=== PATIENT | male | born 1975 | race Caucasian/White ===

== ENCOUNTER 2020-10-03 16:19 | Emergency (ER) | payer MEDICARE, MEDICAID ==
[~2020-10-03 16:19] MED LIST: DEPA1TAB3 PO; INVE156I IM; INVE3TAB2 PO; TRAZ-252 PO
[2020-10-03] MEDS ORDERED: VITA200016 (16:48)
[2020-10-03] MEDS ORDERED: METO1TAB32 (16:48)
[2020-10-03] MEDS ORDERED: ATOR40TA75 (16:48)
[2020-10-03] MEDS ORDERED: FLUP10TA11 (16:48)
[2020-10-03 17:13] LABS: HEMATOCRIT 44.2 % (42.0-52.0); HEMOGLOBIN 14.8 g/dl (13.5-17.5); MEAN CORPUSCULAR HEMOGLOBIN 31.3 pg (27.0-33.0); MEAN CORPUSCULAR HGB CONC 33.5 g/dl (32.0-36.5); MEAN CORPUSCULAR VOLUME 93.4 fl (80.0-96.0); PLATELET COUNT, AUTOMATED 332 10^3/uL (150-450); RED BLOOD COUNT 4.73 10^6/uL (4.30-6.10); WHITE BLOOD COUNT 9.1 10^3/uL (4.0-10.0)
[2020-10-03 17:49] LABS: ACETAMINOPHEN LEVEL < 2.0 UG/ML (10.0-30.0); ALBUMIN 3.6 GM/DL (3.2-5.2); ALT/SGPT 81 U/L (12-78); BILIRUBIN,DIRECT 0.1 MG/DL (0.0-0.2); BILIRUBIN,TOTAL 0.2 MG/DL (0.2-1.0); BLOOD UREA NITROGEN 4 MG/DL (7-18); CALCIUM LEVEL 9.5 MG/DL (8.5-10.1); CARBON DIOXIDE LEVEL 27 MEQ/L (21-32); CHLORIDE LEVEL 103 MEQ/L (98-107); CREATININE FOR GFR 0.72 MG/DL (0.70-1.30); ETHYL ALCOHOL (ETHANOL) < 0.003 % (0.000-0.010); GLOMERULAR FILTRATION RATE > 60.0 (>60); GLUCOSE, FASTING 86 MG/DL (70-100); POTASSIUM SERUM 4.4 MEQ/L (3.5-5.1); SALICYLATE LEVEL 4.1 MG/DL (5.0-30.0); SODIUM LEVEL 139 MEQ/L (136-145); THYROID STIMULATING HORMONE 0.987 uIU/ML (0.358-3.740); VALPROIC ACID (DEPAKOTE) 44.1 UG/ML (50.0-100.0)
[2020-10-03 17:51] LABS: AMPHETAMINES LEVEL URINE NEGATIVE (NEGATIVE); BARBITURATES URINE NEGATIVE (NEGATIVE); BENZODIAZEPINES URINE NEGATIVE (NEGATIVE); CANNABINOIDS URINE NEGATIVE (NEGATIVE); COCAINE METABOLITE URINE NEGATIVE (NEGATIVE); METHADONE URINE NEGATIVE (NEGATIVE); OPIATES URINE NEGATIVE (NEGATIVE); PHENCYCLIDINE URINE NEGATIVE (NEGATIVE)
[2020-10-03 20:47] VITALS: BP 136/78
== END 2020-10-03 20:50 | disposition home or self-care (01) ==
LOC: M ED 16:19
DX: F31.9 Bipolar disorder, unspecified (principal); I10 Essential (primary) hypertension; F20.9 Schizophrenia, unspecified; Z79.899 Other long term (current) drug therapy; Z88.0 Allergy status to penicillin
CPT/HCPCS: 36415; 80048; 80076; 80164; 80307; 84443; 85027; 99284; G0480

== ENCOUNTER 2021-02-28 01:13 | Emergency (ER) | payer MEDICARE, MEDICAID ==
[~2021-02-28] VITALS: Ht 175.3 cm; Wt 95.5 kg
[~2021-02-28 01:13] MED LIST changes: +ATOR40TA75; +FLUP10TA11; +METO1TAB32; +VITA200016
[2021-02-28] MEDS ORDERED: ALBU8.5H (05:53)
[2021-02-28 06:19] VITALS: BP 148/52
--- NOTE | 2021-02-28 08:01 | ECGEPIP ---
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
== END 2021-02-28 06:20 | disposition home or self-care (01) ==
LOC: M ED 01:13
DX: R07.89 Other chest pain (principal); R51.9 Headache, unspecified; G47.00 Insomnia, unspecified; F31.9 Bipolar disorder, unspecified; F20.9 Schizophrenia, unspecified; Z79.899 Other long term (current) drug therapy; Z88.0 Allergy status to penicillin; F17.210 Nicotine dependence, cigarettes, uncomplicated

== ENCOUNTER 2021-03-02 18:07 | Emergency (ER) | payer MEDICARE, MEDICAID ==
[~2021-03-02 18:07] MED LIST changes: +ALBU8.5H
[2021-03-02 19:45] VITALS: BP 123/73
== END 2021-03-02 19:56 | disposition left against medical advice (07) ==
LOC: EDBD 18:07 → EDSEX 18:07 → M ED 18:07
DX: Z53.21 Procedure and treatment not carried out due to patient leaving prior to being seen by health care provider (principal)

== ENCOUNTER 2021-03-05 22:54 | Emergency (ER) | payer MEDICARE, MEDICAID ==
[~2021-03-05] VITALS: Ht 175.3 cm; Wt 87.7 kg
[2021-03-05 22:55] VITALS: BP 128/90
[2021-03-06] MEDS ORDERED: FLUP10TA11 PO (22:11)
== END 2021-03-05 23:36 | disposition left against medical advice (07) ==
LOC: M ED 22:54
DX: Z53.21 Procedure and treatment not carried out due to patient leaving prior to being seen by health care provider (principal)

== ENCOUNTER 2021-03-06 15:10 | Emergency (ER) | payer MEDICARE, MEDICAID ==
[~2021-03-06] VITALS: Ht 175.3 cm; Wt 88.1 kg
[2021-03-06 15:10] VITALS: BP 124/76
[2021-03-06] MEDS ORDERED: FLUP10TA11 PO (22:11)
[2021-03-07] MEDS ORDERED: INVE156I SQ (14:15)
== END 2021-03-06 15:43 | disposition left against medical advice (07) ==
LOC: M ED 15:10
DX: Z53.21 Procedure and treatment not carried out due to patient leaving prior to being seen by health care provider (principal)

== ENCOUNTER 2021-03-06 22:04 | Emergency (ER) | payer MEDICARE, MEDICAID ==
[~2021-03-06] VITALS: Ht 175.3 cm; Wt 88.4 kg
[2021-03-06 22:04] VITALS: BP 153/86
[2021-03-06] MEDS ORDERED: FLUP10TA11 PO (22:11)
[2021-03-07] MEDS ORDERED: INVE156I SQ (14:15)
== END 2021-03-06 22:25 | disposition left against medical advice (07) ==
LOC: M ED 22:04
DX: Z53.21 Procedure and treatment not carried out due to patient leaving prior to being seen by health care provider (principal)

== ENCOUNTER 2021-03-07 06:39 | Emergency (ER) | payer MEDICARE, MEDICAID ==
[~2021-03-07] VITALS: Ht 175.3 cm; Wt 87.7 kg
[~2021-03-07 06:39] MED LIST changes: +FLUP10TA11 PO
[2021-03-07 06:40] VITALS: BP 169/111
[2021-03-07] MEDS ORDERED: INVE156I SQ (14:15)
== END 2021-03-07 07:42 | disposition home or self-care (01) ==
LOC: M ED 06:39
DX: S90.822A Blister (nonthermal), left foot, initial encounter (principal); X58.XXXA Exposure to other specified factors, initial encounter; Y92.9 Unspecified place or not applicable; Y93.01 Activity, walking, marching and hiking; Y99.9 Unspecified external cause status; I25.2 Old myocardial infarction; I10 Essential (primary) hypertension; E78.5 Hyperlipidemia, unspecified; Z85.05 Personal history of malignant neoplasm of liver; F17.200 Nicotine dependence, unspecified, uncomplicated; Z79.899 Other long term (current) drug therapy; Z88.0 Allergy status to penicillin; Z88.6 Allergy status to analgesic agent; Z91.013 Allergy to seafood

== ENCOUNTER 2021-03-07 14:08 | Emergency (ER) | payer MEDICARE, MEDICAID ==
[~2021-03-07] VITALS: Ht 175.3 cm; Wt 87.9 kg
[2021-03-07] MEDS ORDERED: INVE156I SQ (14:15)
[2021-03-07 15:33] VITALS: BP 132/82
== END 2021-03-07 15:34 | disposition home or self-care (01) ==
LOC: M ED 14:08
DX: S90.821A Blister (nonthermal), right foot, initial encounter (principal); S90.822A Blister (nonthermal), left foot, initial encounter; X58.XXXA Exposure to other specified factors, initial encounter; Y92.89 Other specified places as the place of occurrence of the external cause; I10 Essential (primary) hypertension; J45.909 Unspecified asthma, uncomplicated; E78.5 Hyperlipidemia, unspecified; F31.9 Bipolar disorder, unspecified; F90.9 Attention-deficit hyperactivity disorder, unspecified type; R56.9 Unspecified convulsions; Z88.0 Allergy status to penicillin; Z88.8 Allergy status to other drugs, medicaments and biological substances; Z91.018 Allergy to other foods; F17.210 Nicotine dependence, cigarettes, uncomplicated

== ENCOUNTER 2021-03-08 06:08 | Emergency (ER) | payer MEDICARE, MEDICAID ==
[~2021-03-08] VITALS: Ht 175.3 cm; Wt 88.3 kg
[~2021-03-08 06:08] MED LIST changes: +INVE156I SQ
[2021-03-08 06:09] VITALS: BP 168/92
[2021-04-28] MEDS ORDERED: CLON0.5T2 PO (11:18)
== END 2021-03-08 06:32 | disposition left against medical advice (07) ==
LOC: M ED 06:08
DX: Z53.29 Procedure and treatment not carried out because of patient's decision for other reasons (principal)

== ENCOUNTER 2021-03-08 11:10 | Inpatient (IN) | payer MEDICARE, MEDICAID ==
[~2021-03-08] VITALS: Ht 175.3 cm; Wt 87.7 kg
[2021-03-08 12:52] LABS: HEMATOCRIT 42.1 % (42.0-52.0); HEMOGLOBIN 13.8 g/dl (13.5-17.5); MEAN CORPUSCULAR HEMOGLOBIN 30.7 pg (27.0-33.0); MEAN CORPUSCULAR HGB CONC 32.8 g/dl (32.0-36.5); MEAN CORPUSCULAR VOLUME 93.6 fl (80.0-96.0); PLATELET COUNT, AUTOMATED 210 10^3/uL (150-450); WHITE BLOOD COUNT 11.1 10^3/uL (4.0-10.0)
[2021-03-08 13:25] LABS: ACETAMINOPHEN LEVEL < 2.0 UG/ML (10.0-30.0); ALBUMIN 3.4 GM/DL (3.2-5.2); ALT/SGPT 41 U/L (12-78); BILIRUBIN,DIRECT 0.2 MG/DL (0.0-0.2); BILIRUBIN,TOTAL 0.7 MG/DL (0.2-1.0); BLOOD UREA NITROGEN 6 MG/DL (7-18); CALCIUM LEVEL 8.9 MG/DL (8.5-10.1); CARBON DIOXIDE LEVEL 23 MEQ/L (21-32); CHLORIDE LEVEL 107 MEQ/L (98-107); CREATININE FOR GFR 0.85 MG/DL (0.70-1.30); ETHYL ALCOHOL (ETHANOL) < 0.003 % (0.000-0.010); GLOMERULAR FILTRATION RATE > 60.0 (>60); GLUCOSE, FASTING 109 MG/DL (70-100); POTASSIUM SERUM 3.8 MEQ/L (3.5-5.1); SALICYLATE LEVEL 3.8 MG/DL (5.0-30.0); SODIUM LEVEL 141 MEQ/L (136-145); THYROID STIMULATING HORMONE 0.452 uIU/ML (0.358-3.740); TOTAL PROTEIN 6.6 GM/DL (6.4-8.2)
[2021-03-08 13:33] LABS: AMPHETAMINES LEVEL URINE NEGATIVE (NEGATIVE); BARBITURATES URINE NEGATIVE (NEGATIVE); BENZODIAZEPINES URINE NEGATIVE (NEGATIVE); CANNABINOIDS URINE NEGATIVE (NEGATIVE); COCAINE METABOLITE URINE NEGATIVE (NEGATIVE); METHADONE URINE NEGATIVE (NEGATIVE); OPIATES URINE NEGATIVE (NEGATIVE); PHENCYCLIDINE URINE NEGATIVE (NEGATIVE)
[2021-03-08] MEDS ORDERED: MOM 30ML SUSPENSION UDC PO PRN (23:10)
[2021-03-09 00:02] VITALS: BP 135/70
[2021-03-09] MEDS: DIVALPROEX 500 MG TAB PO SCH ×2 (09:00→09:49)
[2021-03-09] MEDS: fluPHENAZine 5MG TABLET PO SCH (09:49)
[2021-03-09] MEDS: NICOTINE 21MG/24HR 1 EA TRANSDERMAL TD SCH (09:50)
--- NOTE | 2021-03-09 12:47 | MHHPEPDOC ---
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 History of Present Illness HISTORY OF THE PRESENT ILLNESS: Patient is a 45 -year-old , male, who [long psychiatric history with the one previous admission at [facility] 6 years ago.. He was brought to emergency room after he showed a somewhat delusional and bizarre behavior at a local bank. Patient went to the bank demand to withdrawal some money, but at the same time was talking about being a confidential informant for Police Department. 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 The [employer] contacted police and his AOT case management manager came to pick him up and brought to emergency. Patient denies any suicidal or homicidal thoughts and claims that he has been complying with the mistreatment and doesn't really understand why he is hospitalized. He is denying any command hallucination. Denies any paranoid ideas but quite insistent that he works at Police Department and he has done nothing wrong. He appears somewhat disheveled, preoccupied, but in control and denies any lethality issues and denies any drug or alcohol abuse issues.. Psychiatric Review of Systems Depression (2 or more weeks): denies Tatyana (4 or more days of): expansive mood, grandiosity, talkativity, pressured, flight of ideas Psychosis: auditory hallucination, delusions, paranoia Past Psychiatric History Previous Psychiatric Diagnosis: . Long psychiatric history several inpatient treatment to his diagnosis of schizophrenia and schizoaffective disorder Previous Psychiatric Admissions: . Last admission at [facility] was 6 years ago but also has numerous admissions in area Hospital Suicide Attempts: . Denies any suicidal attempt. History Psychiatric Follow-up: . Is linked with the AOT Psychiatric medications: .. He doesn't remember the medicine, but he has been taking Past Medical History Medical Problems Hypertension Head Injury: No Seizures: No Hospitalizations: No Surgeries: No Family Medical/Psychiatric HX Medical Problems Father of cancer. No other medical history Psychiatric Disorders: No (patient denies any family psychiatric history) Addiction: No Suicide Attemps/Completions: No Addiction History denies Social History Childhood: . Born in [place], but came to [place] in early age, raised by his grandmother Abuse/Trauma:. Denies any history of abuse Current Living Situation: [. He lives in supportive apartment]. Education: . High school education Employment: . On SSI Social Support: . Has 2 children but no contact Legal: . Denies any legal history Marital: ., , once , recently has 2 children, one son and one daughter very limited contact Mental Status Examination General Appearance: disheveled, appears stated age Build: average Demeanor: average Eye Contact: average Activity: average Speech: clear, slow, low in volume Mood: anxious, irritable Mood Denies any serious depression Affect: constricted, appropriate, congruent, anxious Thought Process: circumstantial, concrete, derailment Thought Content (Delusions): none reported, bizarre, denies SI, HI, AVH, delusions Thought Content (Other): none reported, preoccupied Thought Content (Aggressive): none reported Perception (Hallucinations): none reported, other (possibly hallucinating but denies any command hallucinations) Perception (Other): none reported Cognition (Impairment of): none reported Cognition(Intelligence Est.): average Oriented: Awake, Alert, Oriented times three Insight: fair Psychosis: Denies Diagnoses Chronic schizophrenia, undifferentiated. Rule out schizoaffective disorder A-FIB/CHADSVASC A-FIB History Current/History of A-Fib/PAF?: No Current PO Anticoag Therapy: No Age/Risk Factor Scoring CHADSVASC: CHADSVASC Response (Comments) Value Gender Risk Factor Male 0 Hx of CHF No 0 Hx of HTN No 0 Hx of Stroke/TIA/or VTE No 0 Hx of Diabetes No 0 Hx of Vascular Disease No 0 Total 0 Treatment Treatment ordered: NONE Assessment Patient is somewhat preoccupied and chronically delusional, but denies any command hallucination and denies any lethality issues and is willing to cooperate with the treatment and needs stabilization related medication and supportive therapy Initial Treatment Plan 1. Patient was admitted on a [9.39] status. 2. Complete history was obtained. 3. With patients permission, family will be contacted and database will be expanded. 4. Patients medication regimen will be reviewed and changed accordingly. 5. Patient will be provided with protected environment. 6. Patient will be treated with individual, group, and milieu therapies. 7. Patient will receive supportive psych-education. 8. Discharge planning will commence immediately. 9. Outpatient follow-up treatment will be strongly recommended. 10. The initial treatment plan will focus initially on: * Depression. * Risk for suicide. ESTIMATED LENGTH OF STAY: [5]-[7] DAYS. TIME SPENT COUNSELING AND COORDINATING INITIAL CARE: minutes. Tobacco Cessation Screen If Patient is a Smoker Yes Tobacco Cessation Tx Ordered?: Yes Complete/Results docum. Vital Signs Vital Signs Date Time Temp Pulse Resp B/P (MAP) Pulse Ox O2 Delivery O2 Flow Rate FiO2 03/09/21 00:02 98.7 100 18 135/70 (91) 96 Room Air Medications Unable to Obtain Active Prescriptions or Reported Meds Allergies Coded Allergies: Penicillins (Verified Allergy, Severe, hives, SOB, 10/03/20) ibuprofen (Verified Allergy, Unknown, hives, 03/02/21) shellfish derived (Verified Allergy, Unknown, hives, 03/02/21) NANCY CANDELARIA M.D. Mar 09, 2021 12:47
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
[2021-03-09 17:45] VITALS: BP 133/83
[2021-03-09] MEDS: traZODone 50 MG TAB PO PRN (20:01)
[2021-03-09] MEDS: ALBUTEROL 90 MCG/ACT 8GM HFA INHALER INH PRN (20:01)
[2021-03-09] MEDS: OLANZapine ORAL DISINTEGRATING TAB 5MG PO PRN (23:30)
[2021-03-10 06:34] VITALS: BP 137/79
[2021-03-10] MEDS: NICOTINE 21MG/24HR 1 EA TRANSDERMAL TD SCH (08:50)
[2021-03-10] MEDS: fluPHENAZine 5MG TABLET PO SCH ×2 (08:50→20:21)
[2021-03-10] MEDS: DIVALPROEX 500 MG TAB PO SCH ×2 (08:51→14:27)
--- NOTE | 2021-03-10 12:02 | MHIPNPDOC ---
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 He is obviously delusional but apparently quite chronic in nature and he is denying any thoughts of acting out on his delusions. He is somewhat disheveled, pressured and restless and making nonsensical remarks but not hostile or aggressive, and denies any suicidal or homicidal thoughts. He has been in treatment with the AOT and residing in a supportive living. He is claiming that he has been compliant with his medications, but there is some question about his compliance. He appears quite disorganized and is clearly in need of stabilization HISTORY: . VITAL SIGNS: See below. NEW TEST RESULTS: . CURRENT MEDICATIONS: See below. MENTAL STATUS EXAMINATION: Patient is a 45-year old male, who is , somewhat pressured and rambling. Speech: Is , relevant, but fragmented. Language skills are fair. Thought processes including: Rambling and loose. Thought content: Delusional thoughts. Abstract reasoning, and computation: , Poor. Description of associations: flighty]. Description of abnormal or psychotic thoughts: Delusional thinking, but denies any command hallucination . Judgment: poor. Insight: poor. Orientation: Appears oriented. Recent and remote memory: No gross impairment. Attention span and concentration: . Language: . Fund of knowledge: . Mood: Slightly elevated. Affect: Inappropriate and labile. DIAGNOSES: 1. . Chronic schizophrenia 2. ., Rule out schizoaffective disorder 3. . ASSESSMENT:Cooperating with the medicine but quite regressed and disorganized MANAGEMENT PLAN: Ms. stabilization with this medicine and supportive therapy. TIME SPENT: 20 minutes. Vital Signs Vital Signs Date Time Temp Pulse Resp B/P (MAP) Pulse Ox O2 Delivery O2 Flow Rate FiO2 03/10/21 06:34 97.6 89 14 137/79 (98) 95 Room Air Laboratory Data 24H Labs Laboratory Tests 2 03/10/21 06:42: Valproic Acid (Depakene) Level 24.5L Current Medications Current Medications Medications (Trade) Dose Ordered Sig/Asim Route PRN Reason Start Time Stop Time Status Last Admin Dose Admin Acetaminophen (Tylenol Tab) 650 mg Q6HP PRN PO HEADACHE or MILD DISCOMFORT 03/08/21 23:10 Al Hydrox/Mg Hydrox/Simethicone (Mylanta) 30 ml Q4HP PRN PO HEARTBURN/INDIGESTION 03/08/21 23:10 Albuterol Sulfate (Proventil, Ventolin Hfa) 2 puff Q6HP PRN INH SHORTNESS OF BREATH 03/09/21 16:50 03/09/21 20:01 Divalproex Sodium (Depakote) 500 mg DAILY PO 03/09/21 09:00 Fluphenazine HCl (Prolixin) 10 mg QAM PO 03/09/21 09:00 03/10/21 08:50 Home Med (Med Rec Complete!) ASDIRECTED XX 03/08/21 15:25 03/08/21 23:12 DC Magnesium Hydroxide (Milk Of Magnesia) 30 ml DAILYPRN PRN PO CONSTIPATION 03/08/21 23:10 Nicotine (Nicoderm Cq 21mg) 1 patch DAILY TD 03/09/21 09:00 03/10/21 08:50 Olanzapine (ZyPREXA ZYDIS) 5 mg Q4HP PRN PO AGITATION/ANXIETY 03/08/21 23:10 03/09/21 23:30 Trazodone HCl (Desyrel) 50 mg QHSP PRN PO INSOMNIA 03/08/21 23:10 03/09/21 20:01 Allergies Coded Allergies: Penicillins (Verified Allergy, Severe, hives, SOB, 10/03/20) ibuprofen (Verified Allergy, Unknown, hives, 03/02/21) shellfish derived (Verified Allergy, Unknown, hives, 03/02/21) NANCY CANDELARIA M.D. Mar 10, 2021 12:02 TISHA VALDES MD Mar 11, 2021 15:14
[2021-03-10] MEDS: OLANZapine ORAL DISINTEGRATING TAB 5MG PO PRN (14:35)
[2021-03-10] MEDS: ALBUTEROL 90 MCG/ACT 8GM HFA INHALER INH PRN (16:49)
[2021-03-10 18:28] VITALS: BP 134/90
[2021-03-10] MEDS: ACETAMINOPHEN TAB 650MG DOSE (2X325MG) PO PRN (20:21)
[2021-03-10] MEDS ORDERED: clonazePAM 1 MG TAB PO ONE (20:45)
[2021-03-10] MEDS ORDERED: OLANZapine ORAL DISINTEGRATING TAB 5MG PO ONE (20:45)
[2021-03-10] MEDS: traZODone 50 MG TAB PO PRN (21:36)
[2021-03-11 06:00] VITALS: BP 109/76
[2021-03-11] MEDS: OLANZapine ORAL DISINTEGRATING TAB 5MG PO PRN ×3 (06:17→18:25)
[2021-03-11] MEDS: DIVALPROEX 500 MG TAB PO SCH (08:38)
[2021-03-11] MEDS: fluPHENAZine 5MG TABLET PO SCH ×2 (08:38→20:25)
[2021-03-11] MEDS: NICOTINE 21MG/24HR 1 EA TRANSDERMAL TD SCH (09:00)
[2021-03-11] MEDS: clonazePAM 1 MG TAB PO SCH ×2 (10:45→20:25)
--- NOTE | 2021-03-11 15:22 | MHIPNPDOC ---
[facility] Progress Note Progress Note DATE OF SERVICE: 03/11/21 HISTORY: As per ED report: "Patient was transported by a member of the Mobile Integration Treatment Team, at the request of [facility]. [facility] to patient's arrival, reporting the following: Patient was previously on AOT in [facility] & moved here to [place] a few months ago. He had been living with a female who also suffered from chronic mental illness & her non-compliance made it difficult for his to remain well. Approximately three weeks ago patient left this woman & has since been assisted with treatment & housing via [facility] & [facility]. Despite a better living situation he has been decompensating. He received his CORBETT on Saturday at the [facility], however has continued to decline. He has had repeated visist to the ED for somatic complaints, has been phoning his Meeting Planner & other community supports (including 911) with bizarre requests at all hours of the night ("I need butter"), and then today went to a local branch of [employer] demanding money. He was insistent that he was "and informant for the police" & was demanding is $15/hour paychecks. At one point he lit a cigarette & began smoking in the bank lobby. Patient had an AOT hearing this morning & was officially on [facility] AOT, as of 08:45. The official AOT paperwork is currently unavailable, as it has just been filed for processing following the hearing. Since his arrival here in ED [facility] patient has continued to insist that he an infomant for the police and that he needs to leave [facility], "Before the boss finds out I'm here". VITAL SIGNS: See below. NEW TEST RESULTS: See below CURRENT MEDICATIONS: See below. MENTAL STATUS EXAMINATION: Patient is a 45-year old male, who is disheveled, unkempt, wearing hospital scrubs, superficially cooperative Speech: tangential, disorganized Language skills are fair. Thought processes including: disorganized, tangential, Thought content: Bizarre delusions Abstract reasoning, and computation: Poor Description of associations: Loose Description of abnormal or psychotic thoughts:thought delusions, bizarre mostly. Denies TAV hallucinations, he's not responding to internal stimuli Judgment: poor. Insight: poor. Orientation: Appears oriented. Recent and remote memory: No gross impairment. Attention span and concentration: poor, has difficulty focusing. Language: no gross abnormalities observed.. Fund of knowledge: unable to assess, patient is disorganized Mood: irritable, labile Affect: labile, easily irritated DIAGNOSES: 1. Chronic schizophrenia 2. Rule out schizoaffective disorder ASSESSMENT: yesterday he received a dose of Klonopin 1 mg and it helped him calm down, so, this morning I ordered 1 mg PO BID and according to staff he seems to be a little bit calmer. will continue to monitor for safety, progression of symptoms and medication response MANAGEMENT PLAN: Will continue with current treatment plan TIME SPENT: 15 minutes. Vital Signs Vital Signs Date Time Temp Pulse Resp B/P (MAP) Pulse Ox O2 Delivery O2 Flow Rate FiO2 03/11/21 06:00 96.9 107 20 109/76 (87) 98 Room Air Current Medications Current Medications Medications (Trade) Dose Ordered Sig/Asim Route PRN Reason Start Time Stop Time Status Last Admin Dose Admin Acetaminophen (Tylenol Tab) 650 mg Q6HP PRN PO HEADACHE or MILD DISCOMFORT 03/08/21 23:10 03/10/21 20:21 Al Hydrox/Mg Hydrox/Simethicone (Mylanta) 30 ml Q4HP PRN PO HEARTBURN/INDIGESTION 03/08/21 23:10 Albuterol Sulfate (Proventil, Ventolin Hfa) 2 puff Q6HP PRN INH SHORTNESS OF BREATH 03/09/21 16:50 03/10/21 16:49 Clonazepam (KlonoPIN) 1 mg BID PO 03/11/21 09:00 03/11/21 10:45 Divalproex Sodium (Depakote) 500 mg DAILY PO 03/09/21 09:00 03/11/21 08:38 Fluphenazine HCl (Prolixin) 10 mg BID PO 03/10/21 21:00 03/11/21 08:38 Fluphenazine HCl (Prolixin) 10 mg QAM PO 03/09/21 09:00 03/10/21 12:04 DC 03/10/21 08:50 Home Med (Med Rec Complete!) ASDIRECTED XX 03/08/21 15:25 03/08/21 23:12 DC Magnesium Hydroxide (Milk Of Magnesia) 30 ml DAILYPRN PRN PO CONSTIPATION 03/08/21 23:10 Nicotine (Nicoderm Cq 21mg) 1 patch DAILY TD 03/09/21 09:00 03/10/21 08:50 Olanzapine (ZyPREXA ZYDIS) 5 mg Q4HP PRN PO AGITATION/ANXIETY 03/08/21 23:10 03/11/21 12:32 Trazodone HCl (Desyrel) 50 mg QHSP PRN PO INSOMNIA 03/08/21 23:10 03/10/21 21:36 Allergies Coded Allergies: Penicillins (Verified Allergy, Severe, hives, SOB, 10/03/20) ibuprofen (Verified Allergy, Unknown, hives, 03/02/21) shellfish derived (Verified Allergy, Unknown, hives, 03/02/21) TISHA VALDES MD Mar 11, 2021 14:53
[2021-03-11] MEDS: traZODone 50 MG TAB PO PRN (20:25)
[2021-03-11] MEDS: ACETAMINOPHEN TAB 650MG DOSE (2X325MG) PO PRN (20:26)
[2021-03-12] MEDS: ALBUTEROL 90 MCG/ACT 8GM HFA INHALER INH PRN (06:53)
[2021-03-12 07:11] VITALS: BP 122/78
[2021-03-12] MEDS: fluPHENAZine 5MG TABLET PO SCH ×2 (08:46→20:35)
[2021-03-12] MEDS: clonazePAM 1 MG TAB PO SCH ×2 (08:46→20:34)
[2021-03-12] MEDS: DIVALPROEX 500 MG TAB PO SCH (08:46)
[2021-03-12] MEDS: NICOTINE 21MG/24HR 1 EA TRANSDERMAL TD SCH (08:47)
[2021-03-12] MEDS: ACETAMINOPHEN TAB 650MG DOSE (2X325MG) PO PRN (14:55)
--- NOTE | 2021-03-12 16:45 | MHIPNPDOC ---
[facility] Progress Note Progress Note DATE OF SERVICE: 03/12/21 HISTORY: As per ED report: "Patient was transported by a member of the Mobile Integration Treatment Team, at the request of [facility] [place] [facility]. [facility] marketing underwriter prior to patient's arrival, reporting the following: Patient was previously on AOT in [facility] & moved here to [place] a few months ago. He had been living with a female who also suffered from chronic mental illness & her non-compliance made it difficult for his to remain well. Approximately three weeks ago patient left this woman & has since been assisted with treatment & housing via [facility] & [facility]. Despite a better living situation he has been decompensating. He received his CORBETT on Saturday at the [facility], however has continued to decline. He has had repeated visist to the ED for somatic complaints, has been phoning his Olive Picker & other community supports (including 911) with bizarre requests at all hours of the night ("I need butter"), and then today went to a local branch of [employer] demanding money. He was insistent that he was "and informant for the police" & was demanding is $15/hour paychecks. At one point he lit a cigarette & began smoking in the bank lobby. Patient had an AOT hearing this morning & was officially on [facility] AOT, as of 08:45. The official AOT paperwork is currently unavailable, as it has just been filed for processing following the hearing. Since his arrival here in ED [facility] patient has continued to insist that he an infomant for the police and that he needs to leave [facility], "Before the boss finds out I'm here". VITAL SIGNS: See below. NEW TEST RESULTS: See below CURRENT MEDICATIONS: See below. MENTAL STATUS EXAMINATION: Patient is a 45-year old male, who is disheveled, unkempt, wearing hospital scrubs, superficially cooperative Speech: He's still disorganized, has expansive speech, has rapid speech, tangential and circumstantial Language skills are fair. Thought processes including: disorganized, tangential, derailed Thought content: Bizarre delusions, paranoid delusions mostly about his sister Abstract reasoning, and computation: Poor Description of associations: Loose Description of abnormal or psychotic thoughts:thought delusions, bizarre and paranoid. 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 He says his father is a Crisp chief who lives in a [place] in [place] and he is able to communicate with the animals. He says those visions don't scare him, they make him feel better. Judgment: poor. Insight: poor. Orientation: Appears oriented. Recent and remote memory: He seems to have a good recollection of events Attention span and concentration: poor, has difficulty focusing, he is easily distracted. Language: no gross abnormalities observed.. Fund of knowledge: unable to assess, patient is disorganized Mood: "happy" Affect: congruent with mood DIAGNOSES: 1. Chronic schizophrenia 2. 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 He says he can communicate with the Spirit animals and he does it because he is Emy, his father is a Cris[place] Chief who lives at a [place] in [place]. Reports the visions do not scare him, they make him feel happy. He is still disroganized and tangential but a little less than yesterday. I think he could enefit from an increase in Depakote, I will order 250 mgs PO QAM and tomorrow Dr. Carlisle may decide to go with this dosage increase or to continue with 500 mgs only. MANAGEMENT PLAN: Will increase Depakote to 750 mgs PO daily ( will ad 250 mgs to the existing dose of 500 mgs) TIME SPENT: 15 minutes. Vital Signs Vital Signs Date Time Temp Pulse Resp B/P (MAP) Pulse Ox O2 Delivery O2 Flow Rate FiO2 03/12/21 07:11 97.8 111 18 122/78 (93) 95 Room Air Current Medications Current Medications Medications (Trade) Dose Ordered Sig/Asim Route PRN Reason Start Time Stop Time Status Last Admin Dose Admin Acetaminophen (Tylenol Tab) 650 mg Q6HP PRN PO HEADACHE or MILD DISCOMFORT 03/08/21 23:10 03/12/21 14:55 Al Hydrox/Mg Hydrox/Simethicone (Mylanta) 30 ml Q4HP PRN PO HEARTBURN/INDIGESTION 03/08/21 23:10 Albuterol Sulfate (Proventil, Ventolin Hfa) 2 puff Q6HP PRN INH SHORTNESS OF BREATH 03/09/21 16:50 03/12/21 06:53 Clonazepam (KlonoPIN) 1 mg BID PO 03/11/21 09:00 03/12/21 08:46 Divalproex Sodium (Depakote) 500 mg DAILY PO 03/09/21 09:00 03/12/21 08:46 Fluphenazine HCl (Prolixin) 10 mg BID PO 03/10/21 21:00 03/12/21 08:46 Fluphenazine HCl (Prolixin) 10 mg QAM PO 03/09/21 09:00 03/10/21 12:04 DC 03/10/21 08:50 Home Med (Med Rec Complete!) ASDIRECTED XX 03/08/21 15:25 03/08/21 23:12 DC Magnesium Hydroxide (Milk Of Magnesia) 30 ml DAILYPRN PRN PO CONSTIPATION 03/08/21 23:10 Nicotine (Nicoderm Cq 21mg) 1 patch DAILY TD 03/09/21 09:00 03/12/21 08:47 Olanzapine (ZyPREXA ZYDIS) 5 mg Q4HP PRN PO AGITATION/ANXIETY 03/08/21 23:10 03/11/21 18:25 Trazodone HCl (Desyrel) 50 mg QHSP PRN PO INSOMNIA 03/08/21 23:10 03/11/21 20:25 Allergies Coded Allergies: Penicillins (Verified Allergy, Severe, hives, SOB, 10/03/20) ibuprofen (Verified Allergy, Unknown, hives, 03/02/21) shellfish derived (Verified Allergy, Unknown, hives, 03/02/21) TISHA VALDES MD Mar 12, 2021 15:00
[2021-03-12] MEDS: OLANZapine ORAL DISINTEGRATING TAB 5MG PO PRN (17:59)
[2021-03-12] MEDS: DIVALPROEX 250 MG TAB PO SCH (20:34)
[2021-03-12] MEDS: traZODone 50 MG TAB PO PRN (20:34)
[2021-03-13] MEDS: ACETAMINOPHEN TAB 650MG DOSE (2X325MG) PO PRN ×2 (04:05→18:06)
[2021-03-13] MEDS: ALBUTEROL 90 MCG/ACT 8GM HFA INHALER INH PRN (06:33)
[2021-03-13] MEDS: NICOTINE 21MG/24HR 1 EA TRANSDERMAL TD SCH (09:07)
[2021-03-13] MEDS: DIVALPROEX 500 MG TAB PO SCH (09:07)
[2021-03-13] MEDS: fluPHENAZine 5MG TABLET PO SCH ×2 (09:07→20:10)
[2021-03-13] MEDS: clonazePAM 1 MG TAB PO SCH ×2 (09:07→20:09)
--- NOTE | 2021-03-13 10:15 | MHIPNPDOC ---
[facility] Progress Note Progress Note DATE OF SERVICE: 03/13/21 The patient is not showing much improvement. He is pacing, restless and very inappropriate and disorganized in his speech. He is asking the M.D. to go on a vacation with them today. He is also talking about many different nonsensical topics without any coherence or relevance, and appears very disorganized and fragmented. He is not agitated or aggressive, but mood is very labile and is quite labile and at times hostile, without any provocation. His Depakote was increased and he is cooperating with Prolixin, but so far no significant improv ement. I will increase his Prolixin and monitor his Depakote level. HISTORY: . VITAL SIGNS: See below. NEW TEST RESULTS: . CURRENT MEDICATIONS: See below. MENTAL STATUS EXAMINATION: Patient is a 45-year old male, who is , very pressured and disorganized. Speech: Is rambling, loose, pressured . Language skills are poor. Thought processes including: Disorganized and flighty. Thought content: Many bizarre delusional thinking. Abstract reasoning, and computation: poor. Description of associations: , Grossly disorganized. Description of abnormal or psychotic thoughts: Delusional and scattered but denies any command hallucination. Judgment: poor. Insight: very poor. Orientation: Appears oriented. Recent and remote memory: No gross impairment. Attention span and concentration: poor. Language: . Fund of knowledge: . Mood: Inappropriately elevated. Affect: Labile. DIAGNOSES: 1. . Schizoaffective disorder 2. ., Rule out schizophrenia, paranoid 3. . ASSESSMENT:, Grossly disorganized and labile MANAGEMENT PLAN: . Increase Prolixin, Ms. stabilization with medications. TIME SPENT: 20 minutes. Vital Signs Vital Signs Date Time Temp Pulse Resp B/P (MAP) Pulse Ox O2 Delivery O2 Flow Rate FiO2 03/12/21 07:11 97.8 111 18 122/78 (93) 95 Room Air Current Medications Current Medications Medications (Trade) Dose Ordered Sig/Asim Route PRN Reason Start Time Stop Time Status Last Admin Dose Admin Acetaminophen (Tylenol Tab) 650 mg Q6HP PRN PO HEADACHE or MILD DISCOMFORT 03/08/21 23:10 03/13/21 04:05 Al Hydrox/Mg Hydrox/Simethicone (Mylanta) 30 ml Q4HP PRN PO HEARTBURN/INDIGESTION 03/08/21 23:10 Albuterol Sulfate (Proventil, Ventolin Hfa) 2 puff Q6HP PRN INH SHORTNESS OF BREATH 03/09/21 16:50 03/13/21 06:33 Clonazepam (KlonoPIN) 1 mg BID PO 03/11/21 09:00 03/13/21 09:07 Divalproex Sodium (Depakote) 250 mg DAILY@2100 PO 03/12/21 21:00 03/12/21 20:34 Divalproex Sodium (Depakote) 500 mg DAILY PO 03/09/21 09:00 03/13/21 09:07 Fluphenazine HCl (Prolixin) 10 mg BID PO 03/10/21 21:00 03/13/21 09:07 Fluphenazine HCl (Prolixin) 10 mg QAM PO 03/09/21 09:00 03/10/21 12:04 DC 03/10/21 08:50 Home Med (Med Rec Complete!) ASDIRECTED XX 03/08/21 15:25 03/08/21 23:12 DC Magnesium Hydroxide (Milk Of Magnesia) 30 ml DAILYPRN PRN PO CONSTIPATION 03/08/21 23:10 Nicotine (Nicoderm Cq 21mg) 1 patch DAILY TD 03/09/21 09:00 03/13/21 09:07 Olanzapine (ZyPREXA ZYDIS) 5 mg Q4HP PRN PO AGITATION/ANXIETY 03/08/21 23:10 03/12/21 17:59 Trazodone HCl (Desyrel) 50 mg QHSP PRN PO INSOMNIA 03/08/21 23:10 03/12/21 20:34 Allergies Coded Allergies: Penicillins (Verified Allergy, Severe, hives, SOB, 10/03/20) ibuprofen (Verified Allergy, Unknown, hives, 03/02/21) shellfish derived (Verified Allergy, Unknown, hives, 03/02/21) NANCY CANDELARIA M.D. Mar 13, 2021 10:15
[2021-03-13] MEDS: MAALOX 30 ML SUSP *UDC PO PRN (13:18)
[2021-03-13] MEDS: OLANZapine ORAL DISINTEGRATING TAB 5MG PO PRN (16:26)
[2021-03-13] MEDS: traZODone 50 MG TAB PO PRN (20:10)
[2021-03-13] MEDS: DIVALPROEX 250 MG TAB PO SCH (20:10)
[2021-03-14 06:00] VITALS: BP 136/87
[2021-03-14] MEDS: fluPHENAZine 5MG TABLET PO SCH ×2 (08:37→20:22)
[2021-03-14] MEDS: clonazePAM 1 MG TAB PO SCH ×2 (08:38→20:22)
[2021-03-14] MEDS: NICOTINE 21MG/24HR 1 EA TRANSDERMAL TD SCH (08:38)
[2021-03-14] MEDS: DIVALPROEX 500 MG TAB PO SCH (08:38)
--- NOTE | 2021-03-14 09:20 | MHIPNPDOC ---
[facility] Progress Note Progress Note DATE OF SERVICE: 03/14/21 Patient is cooperated with the increase the Prolixin without any complaint of side effect. He stated that he slept 7 hours without interruption and is feeling good about this. He is definitely not as loose or flighty and his speech is much less pressured and better organized. He is not showing any inappropriate behavior and appears not as irritable. HISTORY: . VITAL SIGNS: See below. NEW TEST RESULTS: . CURRENT MEDICATIONS: See below. MENTAL STATUS EXAMINATION: Patient is a 45-year old male, who is in no acute distress. Speech: Is , coherent, and not as pressured. Language skills are fair. Thought processes including: More focused and coherent. Thought content: , Not making any inappropriate remarks. Abstract reasoning, and computation: poor. Description of associations: , Better organized. Description of abnormal or psychotic thoughts: Denies any hallucination and denies any suicidal thoughts. Judgment: fair]. Insight: fair. Oriented. Orientation: . Recent and remote memory: No gross impairment. Attention span and concentration: . Language: . Fund of knowledge: . Mood: Presentation doesn't appear to be angry or hostile. Affect: More appropriate. DIAGNOSES: 1. ., Schizophrenia, paranoid 2. . 3. . ASSESSMENT:Showing some improvement MANAGEMENT PLAN: . Continue with the current treatment for stabilization. TIME SPENT: 20 minutes. Vital Signs Vital Signs Date Time Temp Pulse Resp B/P (MAP) Pulse Ox O2 Delivery O2 Flow Rate FiO2 03/14/21 06:00 98.3 87 16 136/87 (103) 98 Room Air Current Medications Current Medications Medications (Trade) Dose Ordered Sig/Asim Route PRN Reason Start Time Stop Time Status Last Admin Dose Admin Acetaminophen (Tylenol Tab) 650 mg Q6HP PRN PO HEADACHE or MILD DISCOMFORT 03/08/21 23:10 03/13/21 18:06 Al Hydrox/Mg Hydrox/Simethicone (Mylanta) 30 ml Q4HP PRN PO HEARTBURN/INDIGESTION 03/08/21 23:10 03/13/21 13:18 Albuterol Sulfate (Proventil, Ventolin Hfa) 2 puff Q6HP PRN INH SHORTNESS OF BREATH 03/09/21 16:50 03/13/21 06:33 Clonazepam (KlonoPIN) 1 mg BID PO 03/11/21 09:00 03/14/21 08:38 Divalproex Sodium (Depakote) 250 mg DAILY@2100 PO 03/12/21 21:00 03/13/21 20:10 Divalproex Sodium (Depakote) 500 mg DAILY PO 03/09/21 09:00 03/14/21 08:38 Fluphenazine HCl (Prolixin) 10 mg BID PO 03/10/21 21:00 03/13/21 10:10 DC 03/13/21 09:07 Fluphenazine HCl (Prolixin) 10 mg QAM PO 03/09/21 09:00 03/10/21 12:04 DC 03/10/21 08:50 Fluphenazine HCl (Prolixin) 10 mg QAM PO 03/14/21 09:00 03/14/21 08:37 Fluphenazine HCl (Prolixin) 20 mg QHS PO 03/13/21 21:00 03/13/21 20:10 Home Med (Med Rec Complete!) ASDIRECTED XX 03/08/21 15:25 03/08/21 23:12 DC Magnesium Hydroxide (Milk Of Magnesia) 30 ml DAILYPRN PRN PO CONSTIPATION 03/08/21 23:10 Nicotine (Nicoderm Cq 21mg) 1 patch DAILY TD 03/09/21 09:00 03/14/21 08:38 Olanzapine (ZyPREXA ZYDIS) 5 mg Q4HP PRN PO AGITATION/ANXIETY 03/08/21 23:10 03/13/21 16:26 Trazodone HCl (Desyrel) 50 mg QHSP PRN PO INSOMNIA 03/08/21 23:10 03/13/21 20:10 Allergies Coded Allergies: Penicillins (Verified Allergy, Severe, hives, SOB, 10/03/20) ibuprofen (Verified Allergy, Unknown, hives, 03/02/21) shellfish derived (Verified Allergy, Unknown, hives, 03/02/21) NANCY CANDELARIA M.D. Mar 14, 2021 09:20
[2021-03-14] MEDS: ACETAMINOPHEN TAB 650MG DOSE (2X325MG) PO PRN (10:26)
[2021-03-14] MEDS: OLANZapine ORAL DISINTEGRATING TAB 5MG PO PRN ×2 (14:14→20:43)
[2021-03-14 18:34] VITALS: BP 158/99
[2021-03-14] MEDS: traZODone 50 MG TAB PO PRN (20:22)
[2021-03-14] MEDS: DIVALPROEX 250 MG TAB PO SCH (20:22)
[2021-03-15 06:21] VITALS: BP 156/98
[2021-03-15] MEDS: clonazePAM 1 MG TAB PO SCH ×2 (08:28→20:29)
[2021-03-15] MEDS: fluPHENAZine 5MG TABLET PO SCH ×2 (08:28→20:28)
[2021-03-15] MEDS: DIVALPROEX 500 MG TAB PO SCH (08:28)
[2021-03-15] MEDS: NICOTINE 21MG/24HR 1 EA TRANSDERMAL TD SCH (08:29)
[2021-03-15] MEDS: ACETAMINOPHEN TAB 650MG DOSE (2X325MG) PO PRN (11:25)
[2021-03-15] MEDS: ALBUTEROL 90 MCG/ACT 8GM HFA INHALER INH PRN (11:48)
[2021-03-15] MEDS: OLANZapine ORAL DISINTEGRATING TAB 5MG PO PRN ×2 (14:18→20:29)
[2021-03-15] MEDS ORDERED: BENZTROPINE 2 MG TAB PO ONE (14:35)
[2021-03-15 19:20] VITALS: BP 155/84
[2021-03-15] MEDS: traZODone 50 MG TAB PO PRN (20:28)
[2021-03-15] MEDS: DIVALPROEX 250 MG TAB PO SCH (20:29)
[2021-03-16] MEDS: DIVALPROEX 500 MG TAB PO SCH (08:18)
[2021-03-16] MEDS: NICOTINE 21MG/24HR 1 EA TRANSDERMAL TD SCH (08:19)
[2021-03-16] MEDS: fluPHENAZine 5MG TABLET PO SCH ×2 (08:19→19:56)
[2021-03-16] MEDS: clonazePAM 1 MG TAB PO SCH ×2 (08:19→19:55)
--- NOTE | 2021-03-16 10:33 | MHIPNPDOC ---
[facility] Progress Note Progress Note DATE OF SERVICE: 03/16/21 The patient has not shown much improvement. He remains very inappropriate and disorganized. He is frequently making sexually inappropriate remarks rambling incoherently at times and showing very poor hygiene and requires repeated reminders to complete simple tasks. He is pleasant on approach but very inappropriate with smiles and laughing. He is not showing any angry or aggressive behavior but appears elevated and disorganized. His Depakote level was 24 very low to be therapeutic so we will increase his Depakote to 500 mg in the morning and 750 mg at bedtime and continue with the supportive therapy HISTORY:. VITAL SIGNS: See below. NEW TEST RESULTS:. CURRENT MEDICATIONS: See below. MENTAL STATUS EXAMINATION: Patient is a 45-year old male, who is somewhat disheveled and inappropriate. Speech: Is pressured and flighty. Language skills are poor. Thought processes including: Inappropriate remarks. Thought content: Appears sexually preoccupied and elevated. Abstract reasoning, and computation: Poor. Description of associations: Disorganized. Description of abnormal or psychotic thoughts: Grossly disorganized but not expressing any gross delusional thinking. Judgment: Poor. Insight: Very poor. Orientation: Oriented. Recent and remote memory: No gross impairment. Attention span and concentration: Poor. Language:. Fund of knowledge:. Mood: Inappropriately elevated]. Affect: Inappropriate. DIAGNOSES: 1.. Schizoaffective disorder 2.. 3.. ASSESSMENT: No significant improvement and remains manic MANAGEMENT PLAN: Increase Depakote continue with the Prolixin and supportive therapy. TIME SPENT: 20 minutes. Vital Signs Vital Signs Date Time Temp Pulse Resp B/P (MAP) Pulse Ox O2 Delivery O2 Flow Rate FiO2 03/15/21 19:20 98.2 108 18 155/84 (107) 97 03/15/21 06:21 Room Air Current Medications Current Medications Medications (Trade) Dose Ordered Sig/Asim Route PRN Reason Start Time Stop Time Status Last Admin Dose Admin Acetaminophen (Tylenol Tab) 650 mg Q6HP PRN PO HEADACHE or MILD DISCOMFORT 03/08/21 23:10 03/15/21 11:25 Al Hydrox/Mg Hydrox/Simethicone (Mylanta) 30 ml Q4HP PRN PO HEARTBURN/INDIGESTION 03/08/21 23:10 03/13/21 13:18 Albuterol Sulfate (Proventil, Ventolin Hfa) 2 puff Q6HP PRN INH SHORTNESS OF BREATH 03/09/21 16:50 03/15/21 11:48 Clonazepam (KlonoPIN) 1 mg BID PO 03/11/21 09:00 03/16/21 08:19 Divalproex Sodium (Depakote) 250 mg DAILY@2100 PO 03/12/21 21:00 03/15/21 20:29 Divalproex Sodium (Depakote) 500 mg DAILY PO 03/09/21 09:00 03/16/21 08:18 Fluphenazine HCl (Prolixin) 10 mg BID PO 03/10/21 21:00 03/13/21 10:10 DC 03/13/21 09:07 Fluphenazine HCl (Prolixin) 10 mg QAM PO 03/09/21 09:00 03/10/21 12:04 DC 03/10/21 08:50 Fluphenazine HCl (Prolixin) 10 mg QAM PO 03/14/21 09:00 03/16/21 08:19 Fluphenazine HCl (Prolixin) 20 mg QHS PO 03/13/21 21:00 03/15/21 20:28 Home Med (Med Rec Complete!) ASDIRECTED XX 03/08/21 15:25 03/08/21 23:12 DC Magnesium Hydroxide (Milk Of Magnesia) 30 ml DAILYPRN PRN PO CONSTIPATION 03/08/21 23:10 Nicotine (Nicoderm Cq 21mg) 1 patch DAILY TD 03/09/21 09:00 03/16/21 08:19 Olanzapine (ZyPREXA ZYDIS) 5 mg Q4HP PRN PO AGITATION/ANXIETY 03/08/21 23:10 03/15/21 20:29 Trazodone HCl (Desyrel) 50 mg QHSP PRN PO INSOMNIA 03/08/21 23:10 03/15/21 20:28 Allergies Coded Allergies: Penicillins (Verified Allergy, Severe, hives, SOB, 10/03/20) ibuprofen (Verified Allergy, Unknown, hives, 03/02/21) shellfish derived (Verified Allergy, Unknown, hives, 03/02/21) NANCY CANDELARIA M.D. Mar 16, 2021 10:32
[2021-03-16] MEDS: ALBUTEROL 90 MCG/ACT 8GM HFA INHALER INH PRN (16:06)
[2021-03-16] MEDS: ACETAMINOPHEN TAB 650MG DOSE (2X325MG) PO PRN (16:10)
[2021-03-16 17:16] VITALS: BP 130/87
[2021-03-16] MEDS: traZODone 50 MG TAB PO PRN (19:56)
[2021-03-16] MEDS: DIVALPROEX 250MG *ER* TAB PO SCH (19:56)
[2021-03-16] MEDS: OLANZapine ORAL DISINTEGRATING TAB 5MG PO PRN (19:56)
[2021-03-17 06:00] VITALS: BP 118/73
[2021-03-17] MEDS: fluPHENAZine 5MG TABLET PO SCH ×2 (08:20→20:15)
[2021-03-17] MEDS: clonazePAM 1 MG TAB PO SCH ×2 (08:22→20:15)
[2021-03-17] MEDS: DIVALPROEX 500MG *ER* TAB PO SCH (08:22)
[2021-03-17] MEDS: NICOTINE 21MG/24HR 1 EA TRANSDERMAL TD SCH (08:23)
[2021-03-17] MEDS: ACETAMINOPHEN TAB 650MG DOSE (2X325MG) PO PRN ×3 (08:24→20:36)
--- NOTE | 2021-03-17 08:58 | MHIPNPDOC ---
[facility] Progress Note Progress Note DATE OF SERVICE: 03/17/21 The patient is fully cooperated with increase his Depakote and Prolixin with no complaint of side effect. Today he appears less pressured and not as inappropri ate. He is a little subdued making apologies for his behavior yesterday and is in better control. He is still somewhat disheveled and circumstantial and flighty at times but not as bizarre or inappropriate. There is a question whether he received his scheduled Invega injection that needs to be clarified. HISTORY:. VITAL SIGNS: See below. NEW TEST RESULTS:. CURRENT MEDICATIONS: See below. MENTAL STATUS EXAMINATION: Patient is a 45-year old male, who is in no acute distress. Speech: Is relevant but pressured and flighty. Language skills are poor. Thought processes including: At times disorganized. Thought content: Many inappropriate comments. Abstract reasoning, and computation: Poor. Description of associations: A little better organized. Description of abnormal or psychotic thoughts: Remains disorganized but not as pressured. Judgment: Poor. Insight: Poor. Orientation: Appears oriented. Recent and remote memory: No gross impairment poor. Attention span and concentration:. Language:. Fund of knowledge:. Mood: Reports feeling okay. Affect: Elevated and inappropriate. DIAGNOSES: 1.. Schizoaffective disorder 2.. 3.. ASSESSMENT: Cooperating with the medicine and slight improvement MANAGEMENT PLAN: Continue with the current medicine for stabilization. TIME SPENT: 20 minutes. Vital Signs Vital Signs Date Time Temp Pulse Resp B/P (MAP) Pulse Ox O2 Delivery O2 Flow Rate FiO2 03/17/21 06:00 98.1 81 20 118/73 (88) 98 03/15/21 06:21 Room Air Current Medications Current Medications Medications (Trade) Dose Ordered Sig/Asim Route PRN Reason Start Time Stop Time Status Last Admin Dose Admin Acetaminophen (Tylenol Tab) 650 mg Q6HP PRN PO HEADACHE or MILD DISCOMFORT 03/08/21 23:10 03/17/21 08:24 Al Hydrox/Mg Hydrox/Simethicone (Mylanta) 30 ml Q4HP PRN PO HEARTBURN/INDIGESTION 03/08/21 23:10 03/13/21 13:18 Albuterol Sulfate (Proventil, Ventolin Hfa) 2 puff Q6HP PRN INH SHORTNESS OF BREATH 03/09/21 16:50 7/8/21 16:06 Clonazepam (KlonoPIN) 1 mg BID PO 03/11/21 09:00 03/17/21 08:22 Divalproex Sodium (Depakote Er) 500 mg QAM PO 03/17/21 09:00 03/17/21 08:22 Divalproex Sodium (Depakote Er) 750 mg QHS PO 03/16/21 21:00 03/16/21 19:56 Divalproex Sodium (Depakote) 250 mg DAILY@2100 PO 03/12/21 21:00 03/16/21 10:27 DC 03/15/21 20:29 Divalproex Sodium (Depakote) 500 mg DAILY PO 03/09/21 09:00 03/16/21 10:27 DC 03/16/21 08:18 Fluphenazine HCl (Prolixin) 10 mg BID PO 03/10/21 21:00 03/13/21 10:10 DC 03/13/21 09:07 Fluphenazine HCl (Prolixin) 10 mg QAM PO 03/09/21 09:00 03/10/21 12:04 DC 03/10/21 08:50 Fluphenazine HCl (Prolixin) 10 mg QAM PO 03/14/21 09:00 03/17/21 08:20 Fluphenazine HCl (Prolixin) 20 mg QHS PO 03/13/21 21:00 03/16/21 19:56 Home Med (Med Rec Complete!) ASDIRECTED XX 03/08/21 15:25 03/08/21 23:12 DC Magnesium Hydroxide (Milk Of Magnesia) 30 ml DAILYPRN PRN PO CONSTIPATION 03/08/21 23:10 Nicotine (Nicoderm Cq 21mg) 1 patch DAILY TD 03/09/21 09:00 03/17/21 08:23 Olanzapine (ZyPREXA ZYDIS) 5 mg Q4HP PRN PO AGITATION/ANXIETY 03/08/21 23:10 03/16/21 19:56 Trazodone HCl (Desyrel) 50 mg QHSP PRN PO INSOMNIA 03/08/21 23:10 03/16/21 19:56 Allergies Coded Allergies: Penicillins (Verified Allergy, Severe, hives, SOB, 10/03/20) ibuprofen (Verified Allergy, Unknown, hives, 03/02/21) shellfish derived (Verified Allergy, Unknown, hives, 03/02/21) NANCY CANDELARIA M.D. Mar 17, 2021 08:58
[2021-03-17 18:36] VITALS: BP 139/82
[2021-03-17] MEDS: DIVALPROEX 250MG *ER* TAB PO SCH (20:15)
[2021-03-18] MEDS: clonazePAM 1 MG TAB PO SCH ×2 (08:57→20:17)
[2021-03-18] MEDS: DIVALPROEX 500MG *ER* TAB PO SCH (08:57)
[2021-03-18] MEDS: fluPHENAZine 5MG TABLET PO SCH ×2 (08:57→20:17)
[2021-03-18] MEDS: NICOTINE 21MG/24HR 1 EA TRANSDERMAL TD SCH (09:00)
[2021-03-18] MEDS: OLANZapine ORAL DISINTEGRATING TAB 5MG PO PRN ×2 (11:24→16:28)
[2021-03-18 16:17] VITALS: BP 127/83
[2021-03-18] MEDS: ACETAMINOPHEN TAB 650MG DOSE (2X325MG) PO PRN (16:27)
[2021-03-18] MEDS: DIVALPROEX 250MG *ER* TAB PO SCH (20:17)
[2021-03-18] MEDS: QUEtiapine FUMARATE 100 MG TAB PO SCH (20:17)
[2021-03-19] MEDS: DIVALPROEX 500MG *ER* TAB PO SCH (08:00)
[2021-03-19] MEDS: clonazePAM 1 MG TAB PO SCH ×2 (08:00→20:17)
[2021-03-19] MEDS: fluPHENAZine 5MG TABLET PO SCH ×2 (08:01→20:17)
[2021-03-19] MEDS: ALBUTEROL 90 MCG/ACT 8GM HFA INHALER INH PRN ×2 (08:04→18:56)
[2021-03-19] MEDS: NICOTINE 21MG/24HR 1 EA TRANSDERMAL TD SCH (09:18)
[2021-03-19] MEDS: OLANZapine ORAL DISINTEGRATING TAB 5MG PO PRN (11:15)
[2021-03-19] MEDS: ACETAMINOPHEN TAB 650MG DOSE (2X325MG) PO PRN (17:14)
[2021-03-19 18:36] VITALS: BP 128/92
[2021-03-19] MEDS: QUEtiapine FUMARATE 100 MG TAB PO SCH (20:17)
[2021-03-19] MEDS: DIVALPROEX 250MG *ER* TAB PO SCH (20:18)
[2021-03-20] MEDS: clonazePAM 1 MG TAB PO SCH ×2 (08:01→20:03)
[2021-03-20] MEDS: DIVALPROEX 500MG *ER* TAB PO SCH (08:01)
[2021-03-20] MEDS: fluPHENAZine 5MG TABLET PO SCH ×2 (08:01→20:04)
[2021-03-20] MEDS: NICOTINE 21MG/24HR 1 EA TRANSDERMAL TD SCH (08:03)
[2021-03-20] MEDS: ALBUTEROL 90 MCG/ACT 8GM HFA INHALER INH PRN ×2 (08:41→20:00)
--- NOTE | 2021-03-20 10:07 | MHIPNPDOC ---
[facility] Progress Note Progress Note DATE OF SERVICE: 03/20/21 The patient is fully cooperating with the medicine and is showing significant improvement. His speech is not as flighty pressured and his behavior is much more appropriate. He is polite and pleasant and not making any inappropriate comments. He is sleeping better with his medications and denies any hallucinations or nightmare and is maintaining very good control. HISTORY:. VITAL SIGNS: See below. NEW TEST RESULTS:. CURRENT MEDICATIONS: See below. MENTAL STATUS EXAMINATION: Patient is a 45-year old male, who is pleasant and cooperative. Speech: Is not as pressured or loose. Language skills are fair. Thought processes including: Is more relevant and coherent. Thought content: Not expressing any gross delusional thinking. Abstract reasoning, and computation: Fair. Description of associations: Better organized. Description of abnormal or psychotic thoughts: No active hallucinations. Judgment: Fair. Insight: [ fair.. Orientation: Oriented. Recent and remote memory: Unimpaired. Attention span and concentration:. Language:. Fund of knowledge:. Mood: Euthymic. Affect: Not labile elevated at more appropriate. DIAGNOSES: 1.. Schizoaffective disorder 2.. 3.. ASSESSMENT: Showing improvement MANAGEMENT PLAN: Evaluate with valproic acid level and CMP. TIME SPENT: 20 minutes. Vital Signs Vital Signs Date Time Temp Pulse Resp B/P (MAP) Pulse Ox O2 Delivery O2 Flow Rate FiO2 03/19/21 18:36 97.8 110 14 128/92 (104) 03/17/21 06:00 98 03/15/21 06:21 Room Air Current Medications Current Medications Medications (Trade) Dose Ordered Sig/Asim Route PRN Reason Start Time Stop Time Status Last Admin Dose Admin Acetaminophen (Tylenol Tab) 650 mg Q6HP PRN PO HEADACHE or MILD DISCOMFORT 03/08/21 23:10 03/19/21 17:14 Al Hydrox/Mg Hydrox/Simethicone (Mylanta) 30 ml Q4HP PRN PO HEARTBURN/INDIGESTION 03/08/21 23:10 03/13/21 13:18 Albuterol Sulfate (Proventil, Ventolin Hfa) 2 puff Q6HP PRN INH SHORTNESS OF BREATH 03/09/21 16:50 03/20/21 08:41 Clonazepam (KlonoPIN) 1 mg BID PO 03/11/21 09:00 03/20/21 08:01 Divalproex Sodium (Depakote Er) 500 mg QAM PO 03/17/21 09:00 03/20/21 08:01 Divalproex Sodium (Depakote Er) 750 mg QHS PO 03/16/21 21:00 03/19/21 20:18 Divalproex Sodium (Depakote) 250 mg DAILY@2100 PO 03/12/21 21:00 03/16/21 10:27 DC 03/15/21 20:29 Divalproex Sodium (Depakote) 500 mg DAILY PO 03/09/21 09:00 03/16/21 10:27 DC 03/16/21 08:18 Fluphenazine HCl (Prolixin) 10 mg BID PO 03/10/21 21:00 03/13/21 10:10 DC 03/13/21 09:07 Fluphenazine HCl (Prolixin) 10 mg QAM PO 03/09/21 09:00 03/10/21 12:04 DC 03/10/21 08:50 Fluphenazine HCl (Prolixin) 10 mg QAM PO 03/14/21 09:00 03/20/21 08:01 Fluphenazine HCl (Prolixin) 20 mg QHS PO 03/13/21 21:00 03/19/21 20:17 Home Med (Med Rec Complete!) ASDIRECTED XX 03/08/21 15:25 03/08/21 23:12 DC Magnesium Hydroxide (Milk Of Magnesia) 30 ml DAILYPRN PRN PO CONSTIPATION 03/08/21 23:10 Miscellaneous (Unresolved Clarification Entry) SEE LABEL COMMENTS DAILY XX 03/17/21 09:00 03/18/21 10:18 DC Nicotine (Nicoderm Cq 21mg) 1 patch DAILY TD 03/09/21 09:00 03/20/21 08:03 Olanzapine (ZyPREXA ZYDIS) 5 mg Q4HP PRN PO AGITATION/ANXIETY 03/08/21 23:10 03/19/21 11:15 Quetiapine Fumarate (SEROquel) 100 mg QHS PO 03/18/21 21:00 03/19/21 20:17 Trazodone HCl (Desyrel) 50 mg QHSP PRN PO INSOMNIA 6/30/21 23:10 03/18/21 10:19 DC 03/16/21 19:56 Allergies Coded Allergies: Penicillins (Verified Allergy, Severe, hives, SOB, 10/03/20) ibuprofen (Verified Allergy, Unknown, hives, 03/02/21) shellfish derived (Verified Allergy, Unknown, hives, 03/02/21) NANCY CANDELARIA M.D. Mar 20, 2021 10:07
[2021-03-20] MEDS: OLANZapine ORAL DISINTEGRATING TAB 5MG PO PRN ×2 (10:40→21:24)
[2021-03-20] MEDS: ACETAMINOPHEN TAB 650MG DOSE (2X325MG) PO PRN (13:30)
[2021-03-20] MEDS: MAALOX 30 ML SUSP *UDC PO PRN (15:29)
[2021-03-20 17:11] VITALS: BP 121/86
[2021-03-20] MEDS: QUEtiapine FUMARATE 100 MG TAB PO SCH (20:03)
[2021-03-20] MEDS: DIVALPROEX 250MG *ER* TAB PO SCH (20:03)
[2021-03-21 06:47] VITALS: BP 118/64
[2021-03-21 08:17] LABS: ALBUMIN 3.4 GM/DL (3.2-5.2); ALT/SGPT 72 U/L (12-78); BILIRUBIN,TOTAL 0.2 MG/DL (0.2-1.0); BLOOD UREA NITROGEN 8 MG/DL (7-18); CALCIUM LEVEL 9.4 MG/DL (8.5-10.1); CARBON DIOXIDE LEVEL 26 MEQ/L (21-32); CHLORIDE LEVEL 106 MEQ/L (98-107); CREATININE FOR GFR 0.74 MG/DL (0.70-1.30); GLOMERULAR FILTRATION RATE > 60.0 (>60); GLUCOSE, FASTING 112 MG/DL (70-100); POTASSIUM SERUM 4.3 MEQ/L (3.5-5.1); SODIUM LEVEL 140 MEQ/L (136-145); VALPROIC ACID (DEPAKOTE) 69.6 UG/ML (50.0-100.0)
[2021-03-21] MEDS: DIVALPROEX 500MG *ER* TAB PO SCH (08:56)
[2021-03-21] MEDS: fluPHENAZine 5MG TABLET PO SCH ×2 (08:56→20:07)
[2021-03-21] MEDS: clonazePAM 1 MG TAB PO SCH ×2 (08:57→20:06)
[2021-03-21] MEDS: NICOTINE 21MG/24HR 1 EA TRANSDERMAL TD SCH (08:58)
[2021-03-21] MEDS: ACETAMINOPHEN TAB 650MG DOSE (2X325MG) PO PRN ×2 (08:59→16:52)
[2021-03-21] MEDS ORDERED: DEPA500T2 PO (10:05)
[2021-03-21] MEDS ORDERED: DEPA250T2 PO (10:05)
[2021-03-21] MEDS ORDERED: FLUP5TAB13 PO ×2 (10:05)
[2021-03-21] MEDS ORDERED: QUET100T2 PO (10:05)
[2021-03-21 17:06] VITALS: BP 155/93
[2021-03-21] MEDS: ALBUTEROL 90 MCG/ACT 8GM HFA INHALER INH PRN (18:53)
[2021-03-21] MEDS: QUEtiapine FUMARATE 100 MG TAB PO SCH (20:07)
[2021-03-21] MEDS: DIVALPROEX 250MG *ER* TAB PO SCH (20:08)
[2021-03-22 06:25] VITALS: BP 108/75
[2021-03-22] MEDS: DIVALPROEX 500MG *ER* TAB PO SCH (08:13)
[2021-03-22] MEDS: ALBUTEROL 90 MCG/ACT 8GM HFA INHALER INH PRN (08:13)
[2021-03-22] MEDS: fluPHENAZine 5MG TABLET PO SCH (08:13)
[2021-03-22] MEDS: clonazePAM 1 MG TAB PO SCH (08:14)
[2021-03-22] MEDS: NICOTINE 21MG/24HR 1 EA TRANSDERMAL TD SCH (08:14)
[2021-03-22] MEDS: ACETAMINOPHEN TAB 650MG DOSE (2X325MG) PO PRN (10:10)
[2021-03-22] MEDS ORDERED: BENZTROPINE 2 MG TAB PO ONE (11:00)
[2021-03-22] MEDS ORDERED: diphenhydrAMINE 50MG/ML VIAL (J1200) IM ONE (11:45)
[2021-03-22] MEDS ORDERED: BENZTROPINE 1 MG TAB PO SCH ×2 (21:00)
--- NOTE | 2021-03-23 11:56 | MHIPNPDOC ---
[facility] Progress Note Progress Note DATE OF SERVICE: 03/23/21 This is a progress note for this patient on March 21, 2021. This progress note dictation was delayed due to the uncertainties regarding his discharge. Mr. Choudhary has been maintaining improved mental status and was scheduled to for possible discharge on March 24. Patient reports that she was just informed by the sister that his brother has of unclear reason the night before. He is understandably upset and grieving and stated that he would like to be at his service this evening and his sister is coming to take him to the service and is asking for possible discharge. He is understandably depressed but is denying any suicidal thoughts is quite rational and coherent and maintaining composure. HISTORY:. VITAL SIGNS: See below. NEW TEST RESULTS:. CURRENT MEDICATIONS: See below. MENTAL STATUS EXAMINATION: Patient is a 45-year old male, who is in good control. Speech: Is coherent and rational. Language skills are fair. Thought processes including: Relevant. Thought content: More bizarre ideas denies any paranoia. Abstract reasoning, and computation: Poor. Description of associations: 1 organized. Description of abnormal or psychotic thoughts: Denies any hallucination. Judgment: Fair. Insight: Fair. Orientation: Well oriented. Recent and remote memory: Unimpaired. Attention span and concentration: Fair. Language:. Fund of knowledge:. Mood: Moderately anxious and depressed. Affect: Appropriate. DIAGNOSES: 1.. Schizoaffective disorder 2.. 3.. ASSESSMENT: Patient has been showing significant improvement and was scheduled for discharge on but considering the family emergency we may be able to discharge him today if appropriate arrangement is made MANAGEMENT PLAN: Consider discharge today. TIME SPENT: 20 minutes. Vital Signs Vital Signs Date Time Temp Pulse Resp B/P (MAP) Pulse Ox O2 Delivery O2 Flow Rate FiO2 03/22/21 06:25 98.0 77 20 108/75 (86) 97 Room Air Current Medications Current Medications Medications (Trade) Dose Ordered Sig/Asim Route PRN Reason Start Time Stop Time Status Last Admin Dose Admin Acetaminophen (Tylenol Tab) 650 mg Q6HP PRN PO HEADACHE or MILD DISCOMFORT 03/08/21 23:10 03/22/21 12:44 DC 03/22/21 10:10 Al Hydrox/Mg Hydrox/Simethicone (Mylanta) 30 ml Q4HP PRN PO HEARTBURN/INDIGESTION 03/08/21 23:10 03/22/21 12:44 DC 03/20/21 15:29 Albuterol Sulfate (Proventil, Ventolin Hfa) 2 puff Q6HP PRN INH SHORTNESS OF BREATH 03/09/21 16:50 03/22/21 12:44 DC 03/22/21 08:13 Benztropine Mesylate (Cogentin) 1 mg BID PO 03/22/21 21:00 03/22/21 12:44 DC Benztropine Mesylate (Cogentin) 1 mg BID PO 03/22/21 21:00 UNV Clonazepam (KlonoPIN) 1 mg BID PO 03/11/21 09:00 03/22/21 12:44 DC 03/22/21 08:14 Divalproex Sodium (Depakote Er) 500 mg QAM PO 03/17/21 09:00 03/22/21 12:44 DC 03/22/21 08:13 Divalproex Sodium (Depakote Er) 750 mg QHS PO 03/16/21 21:00 03/22/21 12:44 DC 03/21/21 20:08 Divalproex Sodium (Depakote) 250 mg DAILY@2100 PO 03/12/21 21:00 03/16/21 10:27 DC 03/15/21 20:29 Divalproex Sodium (Depakote) 500 mg DAILY PO 03/09/21 09:00 03/16/21 10:27 DC 03/16/21 08:18 Fluphenazine HCl (Prolixin) 10 mg BID PO 03/10/21 21:00 03/13/21 10:10 DC 03/13/21 09:07 Fluphenazine HCl (Prolixin) 10 mg QAM PO 03/09/21 09:00 03/10/21 12:04 DC 03/10/21 08:50 Fluphenazine HCl (Prolixin) 10 mg QAM PO 03/14/21 09:00 03/22/21 12:44 DC 03/22/21 08:13 Fluphenazine HCl (Prolixin) 20 mg QHS PO 03/13/21 21:00 03/22/21 12:44 DC 03/21/21 20:07 Home Med (Med Rec Complete!) ASDIRECTED XX 03/08/21 15:25 03/08/21 23:12 DC Magnesium Hydroxide (Milk Of Magnesia) 30 ml DAILYPRN PRN PO CONSTIPATION 03/08/21 23:10 03/22/21 12:44 DC Miscellaneous (Unresolved Clarification Entry) SEE LABEL COMMENTS DAILY XX 03/17/21 09:00 03/18/21 10:18 DC Nicotine (Nicoderm Cq 21mg) 1 patch DAILY TD 03/09/21 09:00 03/22/21 12:44 DC 03/21/21 08:58 Olanzapine (ZyPREXA ZYDIS) 5 mg Q4HP PRN PO AGITATION/ANXIETY 03/08/21 23:10 03/22/21 12:44 DC 03/20/21 21:24 Quetiapine Fumarate (SEROquel) 100 mg QHS PO 03/18/21 21:00 03/22/21 12:44 DC 03/21/21 20:07 Trazodone HCl (Desyrel) 50 mg QHSP PRN PO INSOMNIA 03/08/21 23:10 03/18/21 10:19 DC 03/16/21 19:56 Allergies Coded Allergies: Penicillins (Verified Allergy, Severe, hives, SOB, 10/03/20) ibuprofen (Verified Allergy, Unknown, hives, 03/02/21) shellfish derived (Verified Allergy, Unknown, hives, 03/02/21) NANCY CANDELARIA M.D. Mar 23, 2021 11:56
--- NOTE | 2021-03-23 12:06 | MHDSPDOC ---
[facility] Discharge Summary Discharge Summary DATE OF ADMISSION: Mar 08, 2021 at 11:11 DATE OF DISCHARGE: Mar 22, 2021 at 12:28 DISCHARGE DIAGNOSES: 1.. Schizoaffective disorder 2.. REASON FOR ADMISSION: 45-year-old male with a long psychiatric history who is living in supportive living and linked with AOT program. He was brought to emergency room by police after he was acting bizarre and expressing delusional ideas that he is an informer for the [employer]. He was acting bizarre at a local bank and claimed that he is a police informant and police was called and brought to emergency room where he appeared very disheveled the disorganized and grossly delusional. CONSULTANTS INVOLVED: TREATMENT AND PROGRESS ON THE UNIT : He was a started back on his Prolixin 10 mg twice a day Klonopin 1 mg twice a day and Depakote 250 mg twice a day. He remained grossly disorganized and remained delusional and making inappropriate remarks and showing no significant improvement. His Prolixin was increased to 10 mg in the morning and 20 mg at bedtime and his Depakote was increased to 500 mg in the morning and 750 mg at bedtime achieving blood level 69. He was also given Seroquel 100 mg at bedtime. He is fully cooperated with this and tolerated the medicine without any side effects except on the last few days he was showing moderate rigidity and was given Cogentin 1 mg twice a day. With the medication and supportive therapy he has shown marked improvement.. HOSPITAL COURSE: Patient is fully cooperated with his medicine and showed significant improvement. He is not delusional anymore and is not making any inappropriate comments about behavior and is becoming very polite pleasant and cooperative. He was scheduled for discharge on but he was informed that his brother has suddenly and was hoping for discharge on Saturday but due to the need to get approval from AOT program his discharge was delayed to today . He appears understandably sad but denies any serious depression and denies any lethality issues and he is not delusional anymore and appears stable at his baseline. DISCHARGE ASSESSMENT: Improved stable and not a danger to himself or other people MENTAL STATUS EXAMINATION ON DISCHARGE: Patient is a 45-year old male, who is cooperative. Speech is relevant rational. Language skills are fair. Thought processes including: Relevant. Thought content: Denies any delusional thinking. Abstract reasoning, and computation: Fair. Description of associations: Organized. Description of abnormal or psychotic thoughts: Denies any command hallucination. Judgment: Fair. Insight: Fair. Orientation to oriented. Recent and remote memory: No gross impairment. Attention span and concentration:. Language:. Fund of knowledge:. Mood: Feeling sad but appropriate. Affect: Appropriate. MEDICATIONS ON DISCHARGE: -For. Prolixin 10 mg a.m. and 20 milligrams at bedtime Cogentin 1 mg twice a day -For. Depakote 500 mg in the morning and 750 mg at bedtime Seroquel 100 mg at bedtime -For. Continue his Klonopin 1 mg twice a day PLAN/FOLLOWUP ARRANGEMENTS: Continue with his outpatient program. The amount of time spent in the coordination of care for this patient was approximately 35 minutes. ETOH/Disorder Med Rx ETOH/DRUG DISORDER RX: N/A Vital Signs/I&Os Vital Signs Date Time Temp Pulse Resp B/P (MAP) Pulse Ox O2 Delivery O2 Flow Rate FiO2 03/22/21 06:25 98.0 77 20 108/75 (86) 97 Room Air Medications Scheduled Divalproex Sodium (Depakote ER) 250 Mg Tab.er.24h, 750 MG PO QHS for mood for 7 Days, #21 Divalproex Sodium (Depakote ER) 500 Mg Tab.er.24h, 500 MG PO QAM for mood for 7 Days, #14 Fluphenazine HCl (Fluphenazine HCl) 5 Mg Tablet, 10 MG PO QAM for psychosis for 7 Days, #14 Fluphenazine HCl (Fluphenazine HCl) 5 Mg Tablet, 20 MG PO QHS for psychosis for 7 Days, #28 Quetiapine Fumarate (Quetiapine Fumarate) 100 Mg Tablet, 100 MG PO QHS for psychosis for 7 Days, #7 Allergies Coded Allergies: Penicillins (Verified Allergy, Severe, hives, SOB, 10/03/20) ibuprofen (Verified Allergy, Unknown, hives, 03/02/21) shellfish derived (Verified Allergy, Unknown, hives, 03/02/21) NANCY CANDELARIA M.D. Mar 23, 2021 12:06
== END 2021-03-22 12:28 | disposition home or self-care (01) | DRG 885 ==
LOC: M ED 11:10 → M ED INP 11:11 → M PSY 23:45
PROVIDERS: ADMIT Psychiatry & Neurology Psychiatry; ATTEND Psychiatry & Neurology Psychiatry
DX: F25.9 Schizoaffective disorder, unspecified (principal); F17.210 Nicotine dependence, cigarettes, uncomplicated; Z88.0 Allergy status to penicillin; Z88.6 Allergy status to analgesic agent; Z91.013 Allergy to seafood; M54.9 Dorsalgia, unspecified; F90.9 Attention-deficit hyperactivity disorder, unspecified type; F31.9 Bipolar disorder, unspecified; I10 Essential (primary) hypertension; E78.5 Hyperlipidemia, unspecified; J44.9 Chronic obstructive pulmonary disease, unspecified; Z79.899 Other long term (current) drug therapy

== ENCOUNTER 2021-03-22 19:22 | Emergency (ER) | payer MEDICARE, MEDICAID ==
[~2021-03-22] VITALS: Ht 175.3 cm; Wt 87.7 kg
[2021-03-22 19:22] VITALS: BP 144/83
[~2021-03-22 19:22] MED LIST changes: +DEPA250T2 PO; +DEPA500T2 PO; +FLUP5TAB13 PO; +QUET100T2 PO
== END 2021-03-22 19:55 | disposition left against medical advice (07) ==
LOC: M ED 19:22
DX: Z53.21 Procedure and treatment not carried out due to patient leaving prior to being seen by health care provider (principal)

== ENCOUNTER 2021-03-28 14:04 | Inpatient (IN) | payer MEDICARE, MEDICAID ==
[~2021-03-28] VITALS: Ht 175.3 cm; Wt 86.7 kg
[2021-03-28 14:38] LABS: HEMATOCRIT 45.3 % (42.0-52.0); HEMOGLOBIN 14.9 g/dl (13.5-17.5); MEAN CORPUSCULAR HEMOGLOBIN 30.3 pg (27.0-33.0); MEAN CORPUSCULAR HGB CONC 32.9 g/dl (32.0-36.5); MEAN CORPUSCULAR VOLUME 92.3 fl (80.0-96.0); PLATELET COUNT, AUTOMATED 274 10^3/uL (150-450); RED BLOOD COUNT 4.91 10^6/uL (4.30-6.10); WHITE BLOOD COUNT 11.3 10^3/uL (4.0-10.0)
[2021-03-28 15:03] LABS: AMPHETAMINES LEVEL URINE NEGATIVE (NEGATIVE); BARBITURATES URINE NEGATIVE (NEGATIVE); BENZODIAZEPINES URINE NEGATIVE (NEGATIVE); CANNABINOIDS URINE NEGATIVE (NEGATIVE); COCAINE METABOLITE URINE NEGATIVE (NEGATIVE); METHADONE URINE NEGATIVE (NEGATIVE); OPIATES URINE NEGATIVE (NEGATIVE); PHENCYCLIDINE URINE NEGATIVE (NEGATIVE)
[2021-03-28] MEDS ORDERED: NICOTINE 21MG/24HR 1 EA TRANSDERMAL TD ONE (15:05)
[2021-03-28 15:13] LABS: ACETAMINOPHEN LEVEL < 2.0 UG/ML (10.0-30.0); ALBUMIN 3.7 GM/DL (3.2-5.2); ALT/SGPT 88 U/L (12-78); BILIRUBIN,DIRECT < 0.1 MG/DL (0.0-0.2); BILIRUBIN,TOTAL 0.3 MG/DL (0.2-1.0); BLOOD UREA NITROGEN 5 MG/DL (7-18); CALCIUM LEVEL 9.3 MG/DL (8.5-10.1); CARBON DIOXIDE LEVEL 26 MEQ/L (21-32); CHLORIDE LEVEL 108 MEQ/L (98-107); CREATININE FOR GFR 0.64 MG/DL (0.70-1.30); ETHYL ALCOHOL (ETHANOL) < 0.003 % (0.000-0.010); GLOMERULAR FILTRATION RATE > 60.0 (>60); GLUCOSE, FASTING 89 MG/DL (70-100); POTASSIUM SERUM 4.3 MEQ/L (3.5-5.1); SALICYLATE LEVEL 3.7 MG/DL (5.0-30.0); SODIUM LEVEL 141 MEQ/L (136-145); THYROID STIMULATING HORMONE 0.637 uIU/ML (0.358-3.740); TOTAL PROTEIN 7.5 GM/DL (6.4-8.2)
[2021-03-28] MEDS ORDERED: DIVALPROEX 250MG *ER* TAB PO ONE (18:20)
[2021-03-28] MEDS ORDERED: DIVA500T9 PO (20:32)
[2021-03-28] MEDS ORDERED: DIVA250T7 PO (20:32)
[2021-03-28] MEDS ORDERED: BENZ-52 PO (20:32)
[2021-03-28] MEDS ORDERED: FLUP5TAB13 PO (20:32)
[2021-03-28] MEDS ORDERED: QUET100T2 PO (20:32)
[2021-03-28] MEDS ORDERED: FLUP10TA11 PO (20:34)
[2021-03-28] MEDS ORDERED: HOME MED LIST COMPLETE! XX SCH (20:35)
--- NOTE | 2021-03-29 05:18 | ECGEPIP ---
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
[2021-03-29] MEDS ORDERED: DIVALPROEX 500MG *ER* TAB PO ONE (07:40)
[2021-03-29] MEDS ORDERED: fluPHENAZine 5MG TABLET PO ONE (07:40)
[2021-03-29] MEDS ORDERED: BENZTROPINE 1 MG TAB PO ONE (07:40)
[2021-03-29] MEDS: NICOTINE 21MG/24HR 1 EA TRANSDERMAL TD SCH ×2 (09:00→18:35)
[2021-03-29 09:08] LABS: RSV AMPLIFICATION NEGATIVE (NEGATIVE)
[2021-03-29] MEDS ORDERED: MOM 30ML SUSPENSION UDC PO PRN (12:50)
[2021-03-29 13:19] VITALS: BP 137/89
[2021-03-29] MEDS: ACETAMINOPHEN TAB 650MG DOSE (2X325MG) PO PRN (16:47)
[2021-03-29 17:34] VITALS: BP 148/72
[2021-03-29] MEDS: fluPHENAZine 5MG TABLET PO SCH (21:00)
[2021-03-29] MEDS: DIVALPROEX 250MG *ER* TAB PO SCH (21:16)
[2021-03-29] MEDS: QUEtiapine FUMARATE 100 MG TAB PO SCH (21:16)
[2021-03-29] MEDS: BENZTROPINE 1 MG TAB PO SCH (21:17)
[2021-03-30] MEDS: BENZTROPINE 1 MG TAB PO SCH ×2 (08:45→20:28)
[2021-03-30] MEDS: NICOTINE 21MG/24HR 1 EA TRANSDERMAL TD SCH ×2 (08:45→09:00)
[2021-03-30] MEDS: fluPHENAZine 5MG TABLET PO SCH ×2 (08:45→20:28)
[2021-03-30] MEDS: DIVALPROEX 500MG *ER* TAB PO SCH (08:45)
--- NOTE | 2021-03-30 11:25 | MHHPEPDOC ---
General Date Of Admission: Mar 29, 2021 Legal Status: 9.39 Chief Complaint " They said I was inappropriate with a female staff. History of Present Illness HISTORY OF THE PRESENT ILLNESS: Patient is a 45 -year-old , male, who [has a long extensive psychiatric history including recent discharge from inpatient unit a week ago. Patient was brought to emergency room from his [facility] skilled nursing due to] reported inappropriate sexual preoccupations and the behavior along with the threatening behavior to the female staff at his skilled nursing.. The patient stated that he did not think he did anything wrong but he knew that he was trying to get very friendly with the staff. He is smiling inappropriately and very evasive about being threatening but admits that he could have been somewhat inappropriate. Patient claims that he has been compliant with all his medications but was feeling upset and angry because he missed his brother's for some unclear reason at his skilled nursing. He is superficially denying any hallucination or paranoia but he appears somewhat elevated and inappropriate with very little understanding of his behavior. He denies any command halluci nation and denies any thoughts of suicide or aggressive nature and is willing to cooperate with the treatment but does not know if he can return to the skilled nursing or not. Psychiatric Review of Systems Depression (2 or more weeks): denies, other (He is a somewhat elevated and inappropriate) Tatyana (4 or more days of): irritable/elevated mood, talkativity, pressured, flight of ideas, engages in risky behavior, other (Sexually inappropriate behavior) Psychosis: paranoia PTSD: denies Anxiety: denies Past Psychiatric History Previous Psychiatric Diagnosis: . Paranoid schizophrenia and schizoaffective disorder Previous Psychiatric Admissions: . Multiple admissions with a recent discharge in March Suicide Attempts: . No reported of suicidal attempt history Psychiatric Follow-up: . Linked with outpatient treatment Psychiatric medications: . Been compliant with his medication Past Medical History Head Injury: No Seizures: No Hospitalizations: No Surgeries: No Family Medical/Psychiatric HX Medical Problems Patient is not sure of his family's psychiatric or medical history Addiction History denies Social History Childhood: . Born in [place] uneventful childhood Abuse/Trauma:. Current Living Situation: . Education: . Employment: . Social Support: . Legal: . Marital: . Mental Status Examination General Appearance: appears stated age Build: average Demeanor: average Eye Contact: average Activity: average Behavior: cooperative, impulsive, hyperactive Speech: rapid, pressured, non-spontaneous Mood: anxious, elevated Mood Denies feeling depressed and somewhat elevated inappropriate affect Affect: inappropriate, incongruent Thought Process: concrete, loose, flight of ideas Thought Content (Delusions): denies SI, HI, AVH, other (Sexual preoccupation) Thought Content (Other): none reported Thought Content (Aggressive): none reported Perception (Hallucinations): none reported Perception (Other): none reported Cognition (Impairment of): none reported Cognition(Intelligence Est.): average Oriented: Awake, Alert, Oriented times three Insight: poor Judgment: Poor Diagnoses Schizoaffective disorder A-FIB/CHADSVASC A-FIB History Current/History of A-Fib/PAF?: No Current PO Anticoag Therapy: No Age/Risk Factor Scoring CHADSVASC: CHADSVASC Response (Comments) Value Age Risk Factor Age < 65 years old 0 Gender Risk Factor Male 0 Hx of CHF No 0 Hx of HTN No 0 Hx of Stroke/TIA/or VTE No 0 Hx of Diabetes No 0 Hx of Vascular Disease No 0 Total 0 Treatment Treatment ordered: NONE Assessment Patient is somewhat inappropriately elevated and apparently showing inappropriate sexual behavior and needs further stabilization Initial Treatment Plan 1. Patient was admitted on a 9.39 status. 2. Complete history was obtained. 3. With patients permission, family will be contacted and database will be expanded. 4. Patients medication regimen will be reviewed and changed accordingly. 5. Patient will be provided with protected environment. 6. Patient will be treated with individual, group, and milieu therapies. 7. Patient will receive supportive psych-education. 8. Discharge planning will commence immediately. 9. Outpatient follow-up treatment will be strongly recommended. 10. The initial treatment plan will focus initially on: * Depression. * Risk for suicide. ESTIMATED LENGTH OF STAY: 5-7 DAYS. TIME SPENT COUNSELING AND COORDINATING INITIAL CARE: 45 minutes. Complete/Results docum. Vital Signs Vital Signs Date Time Temp Pulse Resp B/P (MAP) Pulse Ox O2 Delivery O2 Flow Rate FiO2 03/30/21 08:27 Room Air 03/29/21 17:34 97.7 84 14 148/72 (97) 03/29/21 13:19 100 Medications Scheduled Benztropine Mesylate (Benztropine Mesylate) 1 Mg Tablet, 1 MG PO BID, (Reported) Divalproex Sodium (Divalproex Sodium ER) 250 Mg Tab.er.24h, 750 MG PO QHS, (Reported) Divalproex Sodium (Divalproex Sodium ER) 500 Mg Tab.er.24h, 500 MG PO QAM, (Reported) Fluphenazine HCl (Fluphenazine HCl) 5 Mg Tablet, 10 MG PO QAM, (Reported) Fluphenazine HCl (Fluphenazine HCl) 10 Mg Tablet, 20 MG PO QHS, (Reported) Quetiapine Fumarate (Quetiapine Fumarate) 100 Mg Tablet, 100 MG PO QHS, (Reported) Allergies Coded Allergies: Penicillins (Verified Allergy, Severe, hives, SOB, 10/03/20) ibuprofen (Verified Allergy, Unknown, hives, 03/02/21) shellfish derived (Verified Allergy, Unknown, hives, 03/02/21) NANCY CANDELARIA M.D. Mar 30, 2021 11:25
[2021-03-30] MEDS: ACETAMINOPHEN TAB 650MG DOSE (2X325MG) PO PRN (12:14)
[2021-03-30] MEDS: ALBUTEROL 90 MCG/ACT 8GM HFA INHALER INH PRN (12:14)
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
[2021-03-30 18:00] VITALS: BP 135/87
[2021-03-30] MEDS: QUEtiapine FUMARATE 100 MG TAB PO SCH (20:28)
[2021-03-30] MEDS: DIVALPROEX 250MG *ER* TAB PO SCH (20:29)
[2021-03-31 06:33] VITALS: BP 154/84
[2021-03-31] MEDS: NICOTINE 21MG/24HR 1 EA TRANSDERMAL TD SCH (08:06)
[2021-03-31] MEDS: DIVALPROEX 500MG *ER* TAB PO SCH (08:06)
[2021-03-31] MEDS: BENZTROPINE 1 MG TAB PO SCH (08:07)
[2021-03-31] MEDS: fluPHENAZine 5MG TABLET PO SCH ×2 (08:07→20:32)
--- NOTE | 2021-03-31 10:01 | MHIPNPDOC ---
[facility] Progress Note Progress Note DATE OF SERVICE: 03/31/21 The patient is a pleasant on approach and is in good control. He is however showing markedly delusional and grandiose ideas. Patient claims that the staff at [facility] was making false accusations because they jealous of his money. He claims that he has millions of dollars in his bank account and the female staff was accusing him of being sexually inappropriate because of the jealousy. He is showing very little insight. He stated that Cogentin is helping his tremor but is still showing moderate persistent resting tremor on his hands so I will increase his Cogentin to 2 mg twice a day. HISTORY:. VITAL SIGNS: See below. NEW TEST RESULTS:. CURRENT MEDICATIONS: See below. MENTAL STATUS EXAMINATION: Patient is a 45-year old male, who is in no acute distress. Speech: Is rambling and circumstantial. Language skills are fair. Thought processes including: Quite circumstantial but is relevant. Thought content: Grossly delusional. Abstract reasoning, and computation: Poor. Description of associations: Circumstantial. Description of abnormal or psychotic thoughts: Grandiose delusional ideas. Judgment: Poor. Insight: Poor. Orientation: Oriented. Recent and remote memory: Poor. Attention span and concentration: Poor. Language:. Fund of knowledge:. Mood: Reports feeling okay. Affect: Inappropriate and elevated. DIAGNOSES: 1.. Schizoaffective disorder 2.. Rule out schizophrenia paranoid 3.. ASSESSMENT: Remains grossly delusional MANAGEMENT PLAN: Stabilized with medications and supportive therapy. TIME SPENT: 20 minutes. Vital Signs Vital Signs Date Time Temp Pulse Resp B/P (MAP) Pulse Ox O2 Delivery O2 Flow Rate FiO2 03/31/21 06:33 97.2 64 14 154/84 (107) 98 Room Air Current Medications Current Medications Medications (Trade) Dose Ordered Sig/Asim Route PRN Reason Start Time Stop Time Status Last Admin Dose Admin Acetaminophen (Tylenol Tab) 650 mg Q6HP PRN PO HEADACHE or MILD DISCOMFORT 03/29/21 12:50 03/30/21 12:14 Al Hydrox/Mg Hydrox/Simethicone (Mylanta) 30 ml Q4HP PRN PO HEARTBURN/INDIGESTION 03/29/21 12:50 Albuterol Sulfate (Proventil, Ventolin Hfa) 2 puff Q6HP PRN INH SHORTNESS OF BREATH 03/29/21 12:30 03/30/21 12:14 Benztropine Mesylate (Cogentin) 1 mg BID PO 03/29/21 21:00 03/31/21 08:07 Divalproex Sodium (Depakote Er) 500 mg QAM PO 03/30/21 09:00 03/31/21 08:06 Divalproex Sodium (Depakote Er) 750 mg QHS PO 03/29/21 21:00 03/30/21 20:29 Fluphenazine HCl (Prolixin) 10 mg QAM PO 03/30/21 09:00 03/31/21 08:07 Fluphenazine HCl (Prolixin) 20 mg QHS PO 03/29/21 21:00 03/30/21 20:28 Home Med (Med Rec Complete!) ASDIRECTED XX 03/28/21 20:35 03/28/21 20:37 DC Magnesium Hydroxide (Milk Of Magnesia) 30 ml DAILYPRN PRN PO CONSTIPATION 03/29/21 12:50 Nicotine (Nicoderm Cq 21mg) 1 patch DAILY TD 03/29/21 09:00 03/30/21 15:52 DC 03/30/21 08:45 Nicotine (Nicoderm Cq 21mg) 1 patch DAILY TD 03/29/21 18:35 03/31/21 08:06 Quetiapine Fumarate (SEROquel) 100 mg QHS PO 03/29/21 21:00 03/30/21 20:28 Trazodone HCl (Desyrel) 50 mg QHSP PRN PO INSOMNIA 03/29/21 12:50 Allergies Coded Allergies: Penicillins (Verified Allergy, Severe, hives, SOB, 10/03/20) ibuprofen (Verified Allergy, Unknown, hives, 03/02/21) shellfish derived (Verified Allergy, Unknown, hives, 03/02/21) NANCY CANDELARIA M.D. Mar 31, 2021 10:01
[2021-03-31] MEDS: ALBUTEROL 90 MCG/ACT 8GM HFA INHALER INH PRN (14:31)
[2021-03-31] MEDS: ACETAMINOPHEN TAB 650MG DOSE (2X325MG) PO PRN (14:34)
[2021-03-31 18:00] VITALS: BP 116/74
[2021-03-31] MEDS: BENZTROPINE 2 MG TAB PO SCH (20:32)
[2021-03-31] MEDS: DIVALPROEX 250MG *ER* TAB PO SCH (20:33)
[2021-03-31] MEDS: QUEtiapine FUMARATE 100 MG TAB PO SCH (21:32)
[2021-04-01 05:33] VITALS: BP 106/52
[2021-04-01] MEDS: NICOTINE 21MG/24HR 1 EA TRANSDERMAL TD SCH (08:03)
[2021-04-01] MEDS: BENZTROPINE 2 MG TAB PO SCH ×2 (08:04→19:54)
[2021-04-01] MEDS: fluPHENAZine 5MG TABLET PO SCH ×2 (08:04→19:54)
[2021-04-01] MEDS: DIVALPROEX 500MG *ER* TAB PO SCH (08:04)
[2021-04-01] MEDS: ALBUTEROL 90 MCG/ACT 8GM HFA INHALER INH PRN (10:02)
[2021-04-01] MEDS: ACETAMINOPHEN TAB 650MG DOSE (2X325MG) PO PRN (12:37)
--- NOTE | 2021-04-01 14:25 | MHIPN ---
[facility] PROGRESS NOTE DATE: 04/01/2021 Blood pressure 106/52, pulse 66, temperature 97.9. This is a video assessment. He is seen in the presence of staff. He is at the inpatient unit in the hospital. I am at home. He is aware of the limitations of the video assessment. CHIEF COMPLAINT: Says feels good. SUBJECTIVE: Seen for followup. Indicates has been feeling good and that he has felt quite better since coming in, though is vague on the improvements but suggests his sleep has improved. Says slept well yesterday. Moods are good. He says he has a lot of energy. He does not think it is more so than usual. Has been eating. That has generally gone well. MENTAL STATUS EXAMINATION: He is neat. He is cooperative, coherent. No agitation. No psychomotor retardation. Affect is reactive, fair range (he wears a mask). Denies suicidal thoughts or intents. Denies any homicidal ideas or intents at present. No overt delusions are elicited when I speak with him, but he has had delusions of grandeur. Does not appear internally preoccupied. Cognition grossly intact. Judgment and insight remain poor. ASSESSMENT: Schizoaffective disorder. The other possibility is schizophrenia, but given ubaldo-like symptoms, including the delusions, it is probably less likely. PLAN: He is to continue with the current care, observations, as well as precautions. He is to continue with the perphenazine at 30 mg daily, quetiapine 100 mg at night, divalproex 750 mg at night and 500 mg in the morning, benztropine at 2 mg twice a day (Cogentin). He is to be encouraged to participate in activities in the unit. Further recommendations to be made depending on the clinical picture.
[2021-04-01 16:36] VITALS: BP 120/76
[2021-04-01] MEDS: traZODone 50 MG TAB PO PRN (19:54)
[2021-04-01] MEDS: QUEtiapine FUMARATE 100 MG TAB PO SCH (19:54)
[2021-04-01] MEDS: DIVALPROEX 250MG *ER* TAB PO SCH (19:55)
[2021-04-02 06:19] VITALS: BP 107/56
[2021-04-02] MEDS: NICOTINE 21MG/24HR 1 EA TRANSDERMAL TD SCH (08:06)
[2021-04-02] MEDS: BENZTROPINE 2 MG TAB PO SCH ×2 (08:07→19:48)
[2021-04-02] MEDS: DIVALPROEX 500MG *ER* TAB PO SCH (08:07)
[2021-04-02] MEDS: fluPHENAZine 5MG TABLET PO SCH ×2 (08:07→19:49)
[2021-04-02] MEDS: ALBUTEROL 90 MCG/ACT 8GM HFA INHALER INH PRN ×2 (09:19→15:59)
[2021-04-02] MEDS: ACETAMINOPHEN TAB 650MG DOSE (2X325MG) PO PRN (09:19)
[2021-04-02] MEDS ORDERED: DIVALPROEX 250MG *ER* TAB PO ONE (12:45)
[2021-04-02 15:42] VITALS: BP 144/79
[2021-04-02] MEDS: MAALOX 30 ML SUSP *UDC PO PRN (18:04)
[2021-04-02] MEDS: QUEtiapine FUMARATE 100 MG TAB PO SCH (19:48)
[2021-04-02] MEDS: DIVALPROEX 250MG *ER* TAB PO SCH (19:49)
[2021-04-02] MEDS: traZODone 50 MG TAB PO PRN (19:49)
[2021-04-03 06:36] VITALS: BP 124/76
--- NOTE | 2021-04-03 07:59 | MHIPN ---
[facility] PROGRESS NOTE DATE: 04/02/2021 VITAL SIGNS: Blood pressure 107/56, pulse 60, temperature 96.9. This is a video assessment, he is seen in the presence of staff, he is at the inpatient unit at the hospital, I am at home. CHIEF COMPLAINT: Says feels very good. SUBJECTIVE: Seen for followup, indicates feels very good, and that his moods have been good, says he slept well, has been eating well. Also indicates he likes it so much here that he does not wish to leave. MENTAL STATUS EXAMINATION: Neat, cooperative, no agitation, no psychomotor retardation, affect broad, he is coherent, denies any thoughts of harming himself or anyone else, at present does not appear to be internally preoccupied, cognition grossly intact, judgment and insight remain compromised. ASSESSMENT: Schizoaffective disorder possibly bipolar type, current episode ubaldo. The other possibility remains schizophrenia, but as indicated yesterday, this is less likely. PLAN: Continue current care, and will look at increasing the Depakote, for example 750 mg twice a day for a total of 1500 mg a day, to help address his ubaldo. Seroquel is to remain at 100 mg at night. Benztropine to remain at 2 mg twice a day. He is to be encouraged to participate in activities in the unit, he will be seeing the assigned clinicians tomorrow. We will maintain current precautions. ADDENDUM: Given the increase in the Depakote, we will also ask for a Depakote level, a valproic acid level, in 5 days. Addendum dictated: BRIGIDO 04/02/2021 1245 Addendum transcribed: [email or web address] 04/03/2021 [id number] [email or web address]
[2021-04-03] MEDS: fluPHENAZine 5MG TABLET PO SCH ×2 (08:18→20:11)
[2021-04-03] MEDS: BENZTROPINE 2 MG TAB PO SCH ×2 (08:18→20:10)
[2021-04-03] MEDS: DIVALPROEX 250MG *ER* TAB PO SCH ×2 (08:19→20:09)
[2021-04-03] MEDS: NICOTINE 21MG/24HR 1 EA TRANSDERMAL TD SCH (08:19)
[2021-04-03] MEDS ORDERED: PALIPERIDONE PALMITATE 234MG/1.5ML INJ (INVEGA)(FREE PSY INPT ONLY) IM SCH (09:00)
--- NOTE | 2021-04-03 09:52 | MHIPNPDOC ---
[facility] Progress Note Progress Note DATE OF SERVICE: 04/03/21 Patient reports that he is past due for his paliperidone injection and stated that he was receiving 156 mg once a month. He is willing to accept increased injection of 234 mg and is fully cooperating. He also claims that he will give the people another chance to take him back to [facility]. He remains delusional that he is millionaire and people are jealous of him but claims that he has no intent to hurt anybody. His tremor is decreased with Cogentin but still showing occasional resting tremor on his hand. He is otherwise pleasant and cooperative. I will increase his paliperidone injection to 234 mg and decrease his Prolixin oral to 10 mg morning and at bedtime. HISTORY:. VITAL SIGNS: See below. NEW TEST RESULTS:. CURRENT MEDICATIONS: See below. MENTAL STATUS EXAMINATION: Patient is a 45-year old male, who is cooperative. Speech: Is relevant. Language skills are fair. Thought processes including: Able to respond relevantly. Thought content: Remains delusional. Abstract reasoning, and computation: Poor. Description of associations: Not as loose. Description of abnormal or psychotic thoughts: Remains delusional but denies any intent to harm anybody. Judgment: Poor. Insight: Poor. Orientation: Oriented. Recent and remote memory: No gross impairment. Attention span and concentration: Poor. Language:. Fund of knowledge:. Mood: Not as anxious or irritable. Affect: Blunted but appropriate. DIAGNOSES: 1.. Schizoaffective disorder 2.. 3.. ASSESSMENT: Maintaining good control and cooperating with medications MANAGEMENT PLAN: Increased to his paliperidone injection decrease his oral Prolixin and continue with the supportive therapy. TIME SPENT: 12 minutes. Vital Signs Vital Signs Date Time Temp Pulse Resp B/P (MAP) Pulse Ox O2 Delivery O2 Flow Rate FiO2 04/03/21 06:36 96.9 88 14 124/76 (92) 96 Room Air Current Medications Current Medications Medications (Trade) Dose Ordered Sig/Asim Route PRN Reason Start Time Stop Time Status Last Admin Dose Admin Acetaminophen (Tylenol Tab) 650 mg Q6HP PRN PO HEADACHE or MILD DISCOMFORT 03/29/21 12:50 04/02/21 09:19 Al Hydrox/Mg Hydrox/Simethicone (Mylanta) 30 ml Q4HP PRN PO HEARTBURN/INDIGESTION 03/29/21 12:50 04/02/21 18:04 Albuterol Sulfate (Proventil, Ventolin Hfa) 2 puff Q6HP PRN INH SHORTNESS OF BREATH 03/29/21 12:30 04/02/21 15:59 Benztropine Mesylate (Cogentin) 1 mg BID PO 03/29/21 21:00 03/31/21 09:57 DC 03/31/21 08:07 Benztropine Mesylate (Cogentin) 2 mg BID PO 03/31/21 21:00 04/03/21 08:18 Divalproex Sodium (Depakote Er) 500 mg QAM PO 03/30/21 09:00 04/02/21 12:37 DC 04/02/21 08:07 Divalproex Sodium (Depakote Er) 750 mg BID PO 04/03/21 09:00 04/03/21 08:19 Divalproex Sodium (Depakote Er) 750 mg QHS PO 03/29/21 21:00 04/02/21 23:00 DC 04/02/21 19:49 Fluphenazine HCl (Prolixin) 10 mg QAM PO 03/30/21 09:00 04/03/21 08:18 Fluphenazine HCl (Prolixin) 20 mg QHS PO 03/29/21 21:00 04/02/21 19:49 Home Med (Med Rec Complete!) ASDIRECTED XX 03/28/21 20:35 03/28/21 20:37 DC Magnesium Hydroxide (Milk Of Magnesia) 30 ml DAILYPRN PRN PO CONSTIPATION 03/29/21 12:50 Nicotine (Nicoderm Cq 21mg) 1 patch DAILY TD 03/29/21 09:00 03/30/21 15:52 DC 03/30/21 08:45 Nicotine (Nicoderm Cq 21mg) 1 patch DAILY TD 03/29/21 18:35 04/03/21 08:19 Quetiapine Fumarate (SEROquel) 100 mg QHS PO 03/29/21 21:00 04/02/21 19:48 Trazodone HCl (Desyrel) 50 mg QHSP PRN PO INSOMNIA 03/29/21 12:50 04/02/21 19:49 Allergies Coded Allergies: Penicillins (Verified Allergy, Severe, hives, SOB, 10/03/20) ibuprofen (Verified Allergy, Unknown, hives, 03/02/21) shellfish derived (Verified Allergy, Unknown, hives, 03/02/21) NANCY CANDELARIA M.D. Apr 03, 2021 09:52
[2021-04-03] MEDS: ACETAMINOPHEN TAB 650MG DOSE (2X325MG) PO PRN (10:18)
[2021-04-03] MEDS ORDERED: diphenhydrAMINE 50MG/ML VIAL (J1200) IM ONE (13:00)
[2021-04-03] MEDS: ALBUTEROL 90 MCG/ACT 8GM HFA INHALER INH PRN ×2 (16:40→22:43)
[2021-04-03 19:06] VITALS: BP 137/85
[2021-04-03] MEDS: QUEtiapine FUMARATE 100 MG TAB PO SCH (20:10)
[2021-04-04 06:00] VITALS: BP 112/53
[2021-04-04] MEDS: DIVALPROEX 250MG *ER* TAB PO SCH ×2 (08:03→20:08)
[2021-04-04] MEDS: BENZTROPINE 2 MG TAB PO SCH ×2 (08:03→20:08)
[2021-04-04] MEDS: NICOTINE 21MG/24HR 1 EA TRANSDERMAL TD SCH (08:03)
[2021-04-04] MEDS: fluPHENAZine 5MG TABLET PO SCH ×2 (08:03→20:07)
--- NOTE | 2021-04-04 11:41 | MHIPNPDOC ---
[facility] [place] Progress Note DATE OF SERVICE: 04/04/21 Patient remains somewhat delusional and is believed that he is a millionaire. Patient is however very pleasant cooperative and maintaining good control and fu lly cooperating with the medicine. He is somewhat tremulous but not appear rigid or stiff and has no complaint of physical discomfort. He has not been sexually inappropriate and not been aggressive and fully cooperating with treatment. We will contact [facility] for his possible return when he is fully stable and continue with the current treatment in the meantime. HISTORY:. VITAL SIGNS: See below. NEW TEST RESULTS:. CURRENT MEDICATIONS: See below. MENTAL STATUS EXAMINATION: Patient is a 46-year old male, who is in no acute distress. Speech: Is relevant and productive. Language skills are fair. Thought processes including: More coherent. Thought content: Still delusional. Abstract reasoning, and computation: Poor. Description of associations: Better organized. Description of abnormal or psychotic thoughts: Denies any command hallucination or lethality issues. Judgment: Poor. Insight: Poor. Orientation: He is oriented. Recent and remote memory: Fair. Attention span and concentration:. Language:. Fund of knowledge:. Mood: Not angry or irritable. Affect: More animated and pleasant. DIAGNOSES: 1.. Schizoaffective disorder 2.. 3.. ASSESSMENT: Showing slight improvement MANAGEMENT PLAN: Continue with the current treatment. TIME SPENT: 20 minutes. Vital Signs Vital Signs Date Time Temp Pulse Resp B/P (MAP) Pulse Ox O2 Delivery O2 Flow Rate FiO2 04/04/21 10:03 Room Air 04/04/21 06:00 97.8 65 20 112/53 (72) 100 Current Medications Current Medications Medications (Trade) Dose Ordered Sig/Asim Route PRN Reason Start Time Stop Time Status Last Admin Dose Admin Acetaminophen (Tylenol Tab) 650 mg Q6HP PRN PO HEADACHE or MILD DISCOMFORT 03/29/21 12:50 04/03/21 10:18 Al Hydrox/Mg Hydrox/Simethicone (Mylanta) 30 ml Q4HP PRN PO HEARTBURN/INDIGESTION 03/29/21 12:50 04/02/21 18:04 Albuterol Sulfate (Proventil, Ventolin Hfa) 2 puff Q6HP PRN INH SHORTNESS OF BREATH 03/29/21 12:30 04/03/21 22:43 Benztropine Mesylate (Cogentin) 1 mg BID PO 03/29/21 21:00 03/31/21 09:57 DC 03/31/21 08:07 Benztropine Mesylate (Cogentin) 2 mg BID PO 03/31/21 21:00 04/04/21 08:03 Divalproex Sodium (Depakote Er) 500 mg QAM PO 03/30/21 09:00 04/02/21 12:37 DC 04/02/21 08:07 Divalproex Sodium (Depakote Er) 750 mg BID PO 04/03/21 09:00 04/04/21 08:03 Divalproex Sodium (Depakote Er) 750 mg QHS PO 03/29/21 21:00 04/02/21 23:00 DC 04/02/21 19:49 Fluphenazine HCl (Prolixin) 10 mg QAM PO 03/30/21 09:00 04/04/21 08:03 Fluphenazine HCl (Prolixin) 10 mg QHS PO 04/03/21 21:00 04/03/21 20:11 Fluphenazine HCl (Prolixin) 20 mg QHS PO 03/29/21 21:00 04/03/21 09:47 DC 04/02/21 19:49 Home Med (Med Rec Complete!) ASDIRECTED XX 03/28/21 20:35 03/28/21 20:37 DC Magnesium Hydroxide (Milk Of Magnesia) 30 ml DAILYPRN PRN PO CONSTIPATION 03/29/21 12:50 Nicotine (Nicoderm Cq 21mg) 1 patch DAILY TD 03/29/21 09:00 03/30/21 15:52 DC 03/30/21 08:45 Nicotine (Nicoderm Cq 21mg) 1 patch DAILY TD 03/29/21 18:35 04/04/21 08:03 Paliperidone Palmitate (Invega Sustenna) 234 mg Q30D IM 05/03/21 09:00 04/03/21 10:23 DC Paliperidone Palmitate (Invega Sustenna) 234 mg Q30D@0900 IM 04/03/21 09:00 04/03/21 14:04 Quetiapine Fumarate (SEROquel) 100 mg QHS PO 03/29/21 21:00 04/03/21 20:10 Trazodone HCl (Desyrel) 50 mg QHSP PRN PO INSOMNIA 03/29/21 12:50 04/02/21 19:49 Allergies Coded Allergies: Penicillins (Verified Allergy, Severe, hives, SOB, 10/03/20) ibuprofen (Verified Allergy, Unknown, hives, 03/02/21) shellfish derived (Verified Allergy, Unknown, hives, 03/02/21) NANCY CANDELARIA M.D. Apr 04, 2021 11:41
[2021-04-04] MEDS: ACETAMINOPHEN TAB 650MG DOSE (2X325MG) PO PRN (12:43)
[2021-04-04] MEDS: ALBUTEROL 90 MCG/ACT 8GM HFA INHALER INH PRN (18:12)
[2021-04-04] MEDS: QUEtiapine FUMARATE 100 MG TAB PO SCH (20:08)
[2021-04-05 07:08] VITALS: BP 117/63
[2021-04-05] MEDS: BENZTROPINE 2 MG TAB PO SCH ×2 (08:22→20:05)
[2021-04-05] MEDS: DIVALPROEX 250MG *ER* TAB PO SCH ×2 (08:22→20:06)
[2021-04-05] MEDS: fluPHENAZine 5MG TABLET PO SCH ×2 (08:23→20:05)
[2021-04-05] MEDS: ACETAMINOPHEN TAB 650MG DOSE (2X325MG) PO PRN (08:23)
[2021-04-05] MEDS: NICOTINE 21MG/24HR 1 EA TRANSDERMAL TD SCH (08:23)
--- NOTE | 2021-04-05 10:15 | MHIPNPDOC ---
[facility] Progress Note Progress Note DATE OF SERVICE: 04/05/21 Patient is pleasant on approach and reports no new issues and no new complaint. He remains delusional but denies any intent to harm anybody and claims that he will give his [facility] staff another chance to work with him. He still shows a moderate tremor but in no acute physical distress and reports feeling better. The patient is under AOT order for treatment and is living in a supervised living and he is willing to return to the [facility] but still showing very little insight into his reportedly inappropriate sexual behavior. Continue with his current medicine and education with the supportive therapy. HISTORY:. VITAL SIGNS: See below. NEW TEST RESULTS:. CURRENT MEDICATIONS: See below. MENTAL STATUS EXAMINATION: Patient is a 46-year old male, who is cooperative. Speech: Is simplistic but rational. Language skills are fair. Thought processes including: Relevant. Thought content: Remains with the grandiose delusional thinking. Abstract lui soning, and computation: Poor. Description of associations: Fair organized. Description of abnormal or psychotic thoughts: Denies any command hallucination. Judgment: Poor. Insight:. poor. Orientation: Oriented. Recent and remote memory: No gross impairment. Attention span and concentration: Poor. Language:. Fund of knowledge:. Mood: Euthymic. Affect: Moderately elevated but appropriate. DIAGNOSES: 1.. Schizoaffective disorder 2.. 3.. ASSESSMENT: Showing some improvement and no behavior problem MANAGEMENT PLAN: Continue with the current treatment plan arrange for possible discharge back to his [facility]. TIME SPENT: 20 minutes. Vital Signs Vital Signs Date Time Temp Pulse Resp B/P (MAP) Pulse Ox O2 Delivery O2 Flow Rate FiO2 04/05/21 09:16 Room Air 04/05/21 07:08 97.4 77 20 117/63 (81) 97 Current Medications Current Medications Medications (Trade) Dose Ordered Sig/Asim Route PRN Reason Start Time Stop Time Status Last Admin Dose Admin Acetaminophen (Tylenol Tab) 650 mg Q6HP PRN PO HEADACHE or MILD DISCOMFORT 03/29/21 12:50 04/05/21 08:23 Al Hydrox/Mg Hydrox/Simethicone (Mylanta) 30 ml Q4HP PRN PO HEARTBURN/INDIGESTION 03/29/21 12:50 04/02/21 18:04 Albuterol Sulfate (Proventil, Ventolin Hfa) 2 puff Q6HP PRN INH SHORTNESS OF BREATH 03/29/21 12:30 04/04/21 18:12 Benztropine Mesylate (Cogentin) 1 mg BID PO 03/29/21 21:00 03/31/21 09:57 DC 03/31/21 08:07 Benztropine Mesylate (Cogentin) 2 mg BID PO 03/31/21 21:00 04/05/21 08:22 Divalproex Sodium (Depakote Er) 500 mg QAM PO 03/30/21 09:00 04/02/21 12:37 DC 04/02/21 08:07 Divalproex Sodium (Depakote Er) 750 mg BID PO 04/03/21 09:00 04/05/21 08:22 Divalproex Sodium (Depakote Er) 750 mg QHS PO 03/29/21 21:00 04/02/21 23:00 DC 04/02/21 19:49 Fluphenazine HCl (Prolixin) 10 mg QAM PO 03/30/21 09:00 04/05/21 08:23 Fluphenazine HCl (Prolixin) 10 mg QHS PO 04/03/21 21:00 04/04/21 20:07 Fluphenazine HCl (Prolixin) 20 mg QHS PO 03/29/21 21:00 04/03/21 09:47 DC 04/02/21 19:49 Home Med (Med Rec Complete!) ASDIRECTED XX 03/28/21 20:35 03/28/21 20:37 DC Magnesium Hydroxide (Milk Of Magnesia) 30 ml DAILYPRN PRN PO CONSTIPATION 03/29/21 12:50 Nicotine (Nicoderm Cq 21mg) 1 patch DAILY TD 03/29/21 09:00 03/30/21 15:52 DC 03/30/21 08:45 Nicotine (Nicoderm Cq 21mg) 1 patch DAILY TD 03/29/21 18:35 04/05/21 08:23 Paliperidone Palmitate (Invega Sustenna) 234 mg Q30D IM 05/03/21 09:00 04/03/21 10:23 DC Paliperidone Palmitate (Invega Sustenna) 234 mg Q30D@0900 IM 04/03/21 09:00 04/03/21 14:04 Quetiapine Fumarate (SEROquel) 100 mg QHS PO 03/29/21 21:00 04/04/21 20:08 Trazodone HCl (Desyrel) 50 mg QHSP PRN PO INSOMNIA 03/29/21 12:50 04/02/21 19:49 Allergies Coded Allergies: Penicillins (Verified Allergy, Severe, hives, SOB, 10/03/20) ibuprofen (Verified Allergy, Unknown, hives, 03/02/21) shellfish derived (Verified Allergy, Unknown, hives, 03/02/21) NANCY CANDELARIA M.D. Apr 05, 2021 10:15
[2021-04-05] MEDS: ALBUTEROL 90 MCG/ACT 8GM HFA INHALER INH PRN (16:10)
[2021-04-05 18:46] VITALS: BP 138/96
[2021-04-05] MEDS: QUEtiapine FUMARATE 100 MG TAB PO SCH (21:55)
[2021-04-06 06:21] VITALS: BP 150/72
[2021-04-06] MEDS: DIVALPROEX 250MG *ER* TAB PO SCH ×2 (08:06→20:04)
[2021-04-06] MEDS: BENZTROPINE 2 MG TAB PO SCH ×2 (08:06→20:03)
[2021-04-06] MEDS: NICOTINE 21MG/24HR 1 EA TRANSDERMAL TD SCH (08:06)
[2021-04-06] MEDS: fluPHENAZine 5MG TABLET PO SCH ×2 (08:07→20:03)
[2021-04-06] MEDS: ACETAMINOPHEN TAB 650MG DOSE (2X325MG) PO PRN ×2 (09:44→17:14)
--- NOTE | 2021-04-06 10:22 | MHIPNPDOC ---
[facility] Progress Note Progress Note DATE OF SERVICE: 04/06/21 Patient has no new complaint except that he is feeling a little too drowsy with his Seroquel at bedtime. He remains somewhat delusional with grandiose ideas b ut denies any paranoid fear and denies any intent to harm anybody and is willing to return to [facility]. We are contacting his AOT program and [facility] staff for possible return. He is still showing moderate tremor on his arms and hands but denies any other physical complaint and in no acute distress. HISTORY: . VITAL SIGNS: See below. NEW TEST RESULTS: . CURRENT MEDICATIONS: See below. MENTAL STATUS EXAMINATION: Patient is a 46-year old male, who is [cooperative and in good control]. Speech: Is [simplistic but rational]. Language skills are [fair]. Thought processes including: [Relevant]. Thought content: Still has grandiose ideas . Abstract reasoning, and computation: [Poor]. Description of associations: [Relevant]. Description of abnormal or psychotic thoughts: Denies any command hallucination and no lethality issues. Judgment: Fair. Insight: Fair]. Orientation: Oriented. Recent and remote memory: No gross impairment. Attention span and concentration:. Language:. Fund of knowledge:. Mood: Not anxious or depressed. Affect: Blunted but appropriate. DIAGNOSES: 1.. Schizoaffective disorder 2.. 3.. ASSESSMENT: Pleasant and cooperative MANAGEMENT PLAN: Continue with current treatment and plan to discharge him back to his [facility]. TIME SPENT: 20 minutes. Vital Signs Vital Signs Date Time Temp Pulse Resp B/P (MAP) Pulse Ox O2 Delivery O2 Flow Rate FiO2 04/06/21 06:21 97.1 84 20 150/72 (98) 95 Room Air Current Medications Current Medications Medications (Trade) Dose Ordered Sig/Asim Route PRN Reason Start Time Stop Time Status Last Admin Dose Admin Acetaminophen (Tylenol Tab) 650 mg Q6HP PRN PO HEADACHE or MILD DISCOMFORT 03/29/21 12:50 04/06/21 09:44 Al Hydrox/Mg Hydrox/Simethicone (Mylanta) 30 ml Q4HP PRN PO HEARTBURN/INDIGESTION 03/29/21 12:50 04/02/21 18:04 Albuterol Sulfate (Proventil, Ventolin Hfa) 2 puff Q6HP PRN INH SHORTNESS OF BREATH 03/29/21 12:30 04/05/21 16:10 Benztropine Mesylate (Cogentin) 1 mg BID PO 03/29/21 21:00 03/31/21 09:57 DC 03/31/21 08:07 Benztropine Mesylate (Cogentin) 2 mg BID PO 03/31/21 21:00 04/06/21 08:06 Divalproex Sodium (Depakote Er) 500 mg QAM PO 03/30/21 09:00 04/02/21 12:37 DC 04/02/21 08:07 Divalproex Sodium (Depakote Er) 750 mg BID PO 04/03/21 09:00 04/06/21 08:06 Divalproex Sodium (Depakote Er) 750 mg QHS PO 03/29/21 21:00 04/02/21 23:00 DC 04/02/21 19:49 Fluphenazine HCl (Prolixin) 10 mg QAM PO 03/30/21 09:00 04/06/21 08:07 Fluphenazine HCl (Prolixin) 10 mg QHS PO 04/03/21 21:00 04/05/21 20:05 Fluphenazine HCl (Prolixin) 20 mg QHS PO 03/29/21 21:00 04/03/21 09:47 DC 04/02/21 19:49 Home Med (Med Rec Complete!) ASDIRECTED XX 03/28/21 20:35 03/28/21 20:37 DC Magnesium Hydroxide (Milk Of Magnesia) 30 ml DAILYPRN PRN PO CONSTIPATION 03/29/21 12:50 Nicotine (Nicoderm Cq 21mg) 1 patch DAILY TD 03/29/21 09:00 03/30/21 15:52 DC 03/30/21 08:45 Nicotine (Nicoderm Cq 21mg) 1 patch DAILY TD 03/29/21 18:35 04/06/21 08:06 Paliperidone Palmitate (Invega Sustenna) 234 mg Q30D IM 05/03/21 09:00 04/03/21 10:23 DC Paliperidone Palmitate (Invega Sustenna) 234 mg Q30D@0900 IM 04/03/21 09:00 04/03/21 14:04 Quetiapine Fumarate (SEROquel) 100 mg QHS PO 03/29/21 21:00 04/05/21 21:55 Trazodone HCl (Desyrel) 50 mg QHSP PRN PO INSOMNIA 03/29/21 12:50 04/02/21 19:49 Allergies Coded Allergies: Penicillins (Verified Allergy, Severe, hives, SOB, 10/03/20) ibuprofen (Verified Allergy, Unknown, hives, 03/02/21) shellfish derived (Verified Allergy, Unknown, hives, 03/02/21) NANCY CANDELARIA M.D. Apr 06, 2021 10:22
--- NOTE | 2021-04-06 12:18 | MHIPN ---
[facility] PROGRESS NOTE ADDENDUM DATE: 04/02/2021 (This is an Addendum to a note I dictated a few minutes ago.) Given the increase in the Depakote, we will also ask for a Depakote level, a valproic acid level, in 5 days.
[2021-04-06] MEDS: ALBUTEROL 90 MCG/ACT 8GM HFA INHALER INH PRN (12:44)
[2021-04-06 18:00] VITALS: BP 119/71
[2021-04-06] MEDS: QUEtiapine FUMARATE 100 MG TAB PO SCH (20:02)
[2021-04-07 06:08] VITALS: BP 109/63
[2021-04-07] MEDS: ACETAMINOPHEN TAB 650MG DOSE (2X325MG) PO PRN ×2 (06:45→17:12)
[2021-04-07] MEDS: NICOTINE 21MG/24HR 1 EA TRANSDERMAL TD SCH (08:00)
[2021-04-07] MEDS: DIVALPROEX 250MG *ER* TAB PO SCH ×2 (08:00→20:17)
[2021-04-07] MEDS: BENZTROPINE 2 MG TAB PO SCH ×2 (08:00→20:17)
[2021-04-07] MEDS: fluPHENAZine 5MG TABLET PO SCH (08:01)
--- NOTE | 2021-04-07 09:32 | MHIPNPDOC ---
[facility] Progress Note Progress Note DATE OF SERVICE: 04/07/21 The patient has been fully cooperating with treatment and maintaining somewhat improved mental status and behavior. He is however showing persistent and quite significant resting tremor on his arms and hands and lately is showing increased rigidity with his upper body with awkward posturing. He is not in any pain but feeling discomfort and slightly embarrassed. He has been on Cogentin 2 mg twice a day with very little improvement even after his Prolixin was decreased to 20 mg a day. I will have to discontinue his Prolixin and continue Cogentin for the next 5 to 7 days and increase his Seroquel at bedtime to 200 mg. HISTORY:. VITAL SIGNS: See below. NEW TEST RESULTS:. CURRENT MEDICATIONS: See below. MENTAL STATUS EXAMINATION: Patient is a 46-year old male, who is pleasant and cooperative. Speech: Is rational. Language skills are fair. Thought processes including: Is relevant. Thought content: Denies any sexual preoccupation. Abstract reasoning, and computation: Poor. Description of associations: Relevant. Description of abnormal or psychotic thoughts: Remains grandiose but denies any command hallucination. Judgment: Fair. Insight: Fair. Orientation: Oriented. Recent and remote memory: No gross impairment. Attention span and concentration:. Language:. Fund of knowledge:. Mood: Remains pleasant. Affect: Appropriate. DIAGNOSES: 1.. Schizoaffective disorder 2.. 3.. ASSESSMENT: Significant EPSE with the Prolixin MANAGEMENT PLAN: Discontinue Prolixin and the increase Seroquel. TIME SPENT: 20 minutes. Vital Signs Vital Signs Date Time Temp Pulse Resp B/P (MAP) Pulse Ox O2 Delivery O2 Flow Rate FiO2 04/07/21 06:08 97.8 75 18 109/63 (78) 94 Room Air Laboratory Data 24H Labs Laboratory Tests 2 04/07/21 07:40: Valproic Acid (Depakene) Level 95.4 Current Medications Current Medications Medications (Trade) Dose Ordered Sig/Asim Route PRN Reason Start Time Stop Time Status Last Admin Dose Admin Acetaminophen (Tylenol Tab) 650 mg Q6HP PRN PO HEADACHE or MILD DISCOMFORT 03/29/21 12:50 04/07/21 06:45 Al Hydrox/Mg Hydrox/Simethicone (Mylanta) 30 ml Q4HP PRN PO HEARTBURN/INDIGESTION 03/29/21 12:50 04/02/21 18:04 Albuterol Sulfate (Proventil, Ventolin Hfa) 2 puff Q6HP PRN INH SHORTNESS OF BREATH 03/29/21 12:30 04/06/21 12:44 Benztropine Mesylate (Cogentin) 1 mg BID PO 03/29/21 21:00 03/31/21 09:57 DC 03/31/21 08:07 Benztropine Mesylate (Cogentin) 2 mg BID PO 03/31/21 21:00 04/07/21 08:00 Divalproex Sodium (Depakote Er) 500 mg QAM PO 03/30/21 09:00 04/02/21 12:37 DC 04/02/21 08:07 Divalproex Sodium (Depakote Er) 750 mg BID PO 04/03/21 09:00 04/07/21 08:00 Divalproex Sodium (Depakote Er) 750 mg QHS PO 03/29/21 21:00 04/02/21 23:00 DC 04/02/21 19:49 Fluphenazine HCl (Prolixin) 10 mg QAM PO 03/30/21 09:00 04/07/21 09:21 DC 04/07/21 08:01 Fluphenazine HCl (Prolixin) 10 mg QHS PO 04/03/21 21:00 04/07/21 09:21 DC 04/06/21 20:03 Fluphenazine HCl (Prolixin) 20 mg QHS PO 03/29/21 21:00 04/03/21 09:47 DC 04/02/21 19:49 Home Med (Med Rec Complete!) ASDIRECTED XX 03/28/21 20:35 03/28/21 20:37 DC Magnesium Hydroxide (Milk Of Magnesia) 30 ml DAILYPRN PRN PO CONSTIPATION 03/29/21 12:50 Nicotine (Nicoderm Cq 21mg) 1 patch DAILY TD 03/29/21 09:00 03/30/21 15:52 DC 03/30/21 08:45 Nicotine (Nicoderm Cq 21mg) 1 patch DAILY TD 03/29/21 18:35 04/07/21 08:00 Paliperidone Palmitate (Invega Sustenna) 234 mg Q30D IM 05/03/21 09:00 04/03/21 10:23 DC Paliperidone Palmitate (Invega Sustenna) 234 mg Q30D@0900 IM 04/03/21 09:00 04/03/21 14:04 Quetiapine Fumarate (SEROquel) 100 mg QHS PO 03/29/21 21:00 04/07/21 08:32 DC 04/05/21 21:55 Quetiapine Fumarate (SEROquel) 200 mg QHS PO 04/07/21 21:00 Trazodone HCl (Desyrel) 50 mg QHSP PRN PO INSOMNIA 03/29/21 12:50 04/02/21 19:49 Allergies Coded Allergies: Penicillins (Verified Allergy, Severe, hives, SOB, 10/03/20) ibuprofen (Verified Allergy, Unknown, hives, 03/02/21) shellfish derived (Verified Allergy, Unknown, hives, 03/02/21) NANCY CANDELARIA M.D. Apr 07, 2021 09:32
[2021-04-07] MEDS: ALBUTEROL 90 MCG/ACT 8GM HFA INHALER INH PRN ×2 (09:44→20:17)
[2021-04-07 18:00] VITALS: BP 126/60
[2021-04-07] MEDS: QUEtiapine FUMARATE 200 MG TAB PO SCH (20:17)
[2021-04-08 07:08] VITALS: BP 131/62
[2021-04-08] MEDS: NICOTINE 21MG/24HR 1 EA TRANSDERMAL TD SCH (08:06)
[2021-04-08] MEDS: DIVALPROEX 250MG *ER* TAB PO SCH ×2 (08:06→20:08)
[2021-04-08] MEDS: BENZTROPINE 2 MG TAB PO SCH ×2 (08:06→20:07)
[2021-04-08] MEDS: ALBUTEROL 90 MCG/ACT 8GM HFA INHALER INH PRN ×2 (09:40→20:07)
[2021-04-08] MEDS ORDERED: OLANZapine ORAL DISINTEGRATING TAB 5MG PO STA (18:30)
[2021-04-08] MEDS: traZODone 50 MG TAB PO PRN (20:07)
[2021-04-08] MEDS: QUEtiapine FUMARATE 200 MG TAB PO SCH (20:08)
[2021-04-09 06:56] VITALS: BP 123/68
[2021-04-09] MEDS: BENZTROPINE 2 MG TAB PO SCH ×2 (08:20→20:25)
[2021-04-09] MEDS: DIVALPROEX 250MG *ER* TAB PO SCH ×2 (08:21→20:26)
[2021-04-09] MEDS: NICOTINE 21MG/24HR 1 EA TRANSDERMAL TD SCH (08:23)
[2021-04-09] MEDS: ALBUTEROL 90 MCG/ACT 8GM HFA INHALER INH PRN ×2 (08:23→15:55)
[2021-04-09] MEDS: ACETAMINOPHEN TAB 650MG DOSE (2X325MG) PO PRN (10:24)
[2021-04-09] MEDS ORDERED: OLANZapine ORAL DISINTEGRATING TAB 5MG PO ONE (15:25)
[2021-04-09 17:01] VITALS: BP 134/87
[2021-04-09] MEDS: QUEtiapine FUMARATE 200 MG TAB PO SCH (20:25)
[2021-04-09] MEDS: traZODone 50 MG TAB PO PRN (20:25)
[2021-04-10 05:56] VITALS: BP 136/62
[2021-04-10] MEDS: NICOTINE 21MG/24HR 1 EA TRANSDERMAL TD SCH ×2 (08:00→14:14)
[2021-04-10] MEDS: BENZTROPINE 2 MG TAB PO SCH ×2 (08:01→20:08)
[2021-04-10] MEDS: DIVALPROEX 250MG *ER* TAB PO SCH ×2 (08:02→20:08)
[2021-04-10] MEDS ORDERED: INVE234I IM (09:58)
[2021-04-10] MEDS ORDERED: QUET200T2 PO (09:58)
[2021-04-10] MEDS ORDERED: BENZ2TAB5 PO (09:58)
--- NOTE | 2021-04-10 10:07 | MHDSPDOC ---
[facility] Discharge Summary Discharge Summary DATE OF ADMISSION: Mar 29, 2021 at 12:27 DATE OF DISCHARGE: April 10, 2021 DISCHARGE DIAGNOSES: 1.. Schizoaffective disorder 2.. REASON FOR ADMISSION: 46-year-old mated with the extensive psychiatric history with a recent discharge from inpatient unit. Patient was brought back to the emergency room from his [facility] long-term due to report of increasing sexually inappropriate behavior and threatening behavior. On admission exam patient denies any thoughts of harming anybody and denies any command hallucination but is expressing significant delusional thinking where he believes that people are jealous of him because he is a millionaire. CONSULTANTS INVOLVED: TREATMENT AND PROGRESS ON THE UNIT : Patient was seen for supportive therapy and restarted on his Prolixin 10 mg in the morning and 20 mg at bedtime and continued on Depakote 500 mg in the morning and 750 mg at bedtime. He was also maintained on his regular paliperidone injection 234 mg IM every 30 days and he received his dose on April 03 and his next dose will be May 03, 2021. 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 Patient however is not showing no improvement and if any he is tremor is even worse and is affecting his postures also. Due to significant parkinsonian side effect his Prolixin was discontinued and he was given increased the Seroquel 200 mg at bedtime. He has fully cooperated with this and his tremor is significantly reduced and he is in no acute physical distress.. HOSPITAL COURSE: Patient has fully cooperated with the treatment and maintained good control. His delusional ideas persists but he is not preoccupied with his delusional thoughts of being a millionaire and is not bizarre or agitated. He has not shown any more sexually inappropriate behavior and he is much more pleasant appropriate and in good control. He is denying any command hallucination and denies any thoughts of harming anybody and is willing to return to his long-term and cooperate with the treatment. DISCHARGE ASSESSMENT: Improved stable and not a danger to himself or other people. MENTAL STATUS EXAMINATION ON DISCHARGE: Patient is a 46-year old male, who is cooperative. Speech is simplistic but relevant. Language skills are fair. Thought processes including: Relevant and coherent. Thought content: Still believes he is millionaire. Abstract reasoning, and computation: Poor. Description of associations: [Coherent. Description of abnormal or psychotic thoughts: Moderate grandiose delusional th oughts but no command hallucination. Judgment: Fair. Insight: Fair. Orientation to oriented. Recent and remote memory: Unimpaired. Attention span and concentration: Poor. Language:. Fund of knowledge:. Mood: Pleasant euthymic. Affect: Slightly elevated but appropriate. MEDICATIONS ON DISCHARGE: -For. Continue his Invega injection to 34 mg every month -For. Cogentin 2 mg twice a day -For. Seroquel 200 mg at bedtime Depakote 500 mg in the morning and 750 mg at bedtime PLAN/FOLLOWUP ARRANGEMENTS: As arranged by the funeral planner. The amount of time spent in the coordination of care for this patient was approximately 35 minutes. ETOH/Disorder Med Rx ETOH/DRUG DISORDER RX: N/A Vital Signs/I&Os Vital Signs Date Time Temp Pulse Resp B/P (MAP) Pulse Ox O2 Delivery O2 Flow Rate FiO2 04/10/21 05:56 97.4 72 20 136/62 (86) 97 Room Air Medications Scheduled Benztropine Mesylate (Benztropine Mesylate) 2 Mg Tablet, 2 MG PO BID for side effect for 7 Days, #14 Divalproex Sodium (Divalproex Sodium ER) 250 Mg Tab.er.24h, 750 MG PO QHS, (Reported) Divalproex Sodium (Divalproex Sodium ER) 500 Mg Tab.er.24h, 500 MG PO QAM, (Reported) Paliperidone Palmitate (Invega Sustenna) 234 Mg/1.5 Ml Syringe, 234 MG IM Q30D@0900 for psychosis for 30 Days, #1 Quetiapine Fumarate (Quetiapine Fumarate) 200 Mg Tablet, 200 MG PO QHS for p sychosis for 7 Days, #7 Allergies Coded Allergies: Penicillins (Verified Allergy, Severe, hives, SOB, 10/03/20) ibuprofen (Verified Allergy, Unknown, hives, 03/02/21) shellfish derived (Verified Allergy, Unknown, hives, 03/02/21) NANCY CANDELARIA M.D. Apr 10, 2021 10:07
[2021-04-10] MEDS: ALBUTEROL 90 MCG/ACT 8GM HFA INHALER INH PRN (17:23)
[2021-04-10] MEDS: ACETAMINOPHEN TAB 650MG DOSE (2X325MG) PO PRN (17:23)
[2021-04-10 17:43] VITALS: BP 143/89
[2021-04-10] MEDS: QUEtiapine FUMARATE 200 MG TAB PO SCH (20:08)
[2021-04-11] MEDS: ACETAMINOPHEN TAB 650MG DOSE (2X325MG) PO PRN (00:09)
[2021-04-11] MEDS: ALBUTEROL 90 MCG/ACT 8GM HFA INHALER INH PRN ×2 (04:20→17:00)
[2021-04-11 07:19] VITALS: BP 123/65
[2021-04-11] MEDS: NICOTINE 21MG/24HR 1 EA TRANSDERMAL TD SCH (08:38)
[2021-04-11] MEDS: DIVALPROEX 250MG *ER* TAB PO SCH ×2 (08:38→21:34)
[2021-04-11] MEDS: BENZTROPINE 2 MG TAB PO SCH ×2 (08:38→21:34)
--- NOTE | 2021-04-11 11:41 | MHIPNPDOC ---
[facility] Progress Note Progress Note DATE OF SERVICE: 04/11/21 Planned discharge was canceled after the [facility]OT recommended that he be placed in a supervised living. The patient is very upset unhappy and expressing marked para noid ideas about about the decision. He is somewhat pressured circumstantial and expressing many paranoid delusional thoughts which is very chronic in nature. He is however maintaining good control and is not agitated or aggressive and is willing to continue his medications and follow-up with discharge plan. Since his legal status is expiring we will convert him to a voluntary status and continue with the current treatment and discharge plan. HISTORY:. VITAL SIGNS: See below. NEW TEST RESULTS:. CURRENT MEDICATIONS: See below. MENTAL STATUS EXAMINATION: Patient is a 46-year old male, who is in no acute distress. Speech: Is pressured and her level flighty. Language skills are fair. Thought processes including: Pressured. Thought content: Delusional thoughts of paranoid and grandiose nature. Abstract reasoning, and computation: Poor. Description of associations: Pressured. Description of abnormal or psychotic thoughts: Remains moderately delusional and paranoid. Judgment: Poor. Insight: Poor. Orientation: Oriented. Recent and remote memory: No impairment. Attention span and concentration:. Language:. Fund of knowledge:. Mood: A little angry and frustrated. Affect: Blunted. DIAGNOSES: 1.. Schizoaffective disorder 2.. 3.. ASSESSMENT: Patient is angry and frustrated with canceled the discharge MANAGEMENT PLAN: Continue with the current medicine and wait for a supervised living. TIME SPENT: 20 minutes. Vital Signs Vital Signs Date Time Temp Pulse Resp B/P (MAP) Pulse Ox O2 Delivery O2 Flow Rate FiO2 04/11/21 07:19 97.3 99 18 123/65 (84) 98 Room Air Current Medications Current Medications Medications (Trade) Dose Ordered Sig/Asim Route PRN Reason Start Time Stop Time Status Last Admin Dose Admin Acetaminophen (Tylenol Tab) 650 mg Q6HP PRN PO HEADACHE or MILD DISCOMFORT 03/29/21 12:50 04/11/21 00:09 Al Hydrox/Mg Hydrox/Simethicone (Mylanta) 30 ml Q4HP PRN PO HEARTBURN/INDIGESTION 03/29/21 12:50 04/02/21 18:04 Albuterol Sulfate (Proventil, Ventolin Hfa) 2 puff Q6HP PRN INH SHORTNESS OF BREATH 03/29/21 12:30 04/11/21 04:20 Benztropine Mesylate (Cogentin) 1 mg BID PO 03/29/21 21:00 03/31/21 09:57 DC 03/31/21 08:07 Benztropine Mesylate (Cogentin) 2 mg BID PO 03/31/21 21:00 04/11/21 08:38 Divalproex Sodium (Depakote Er) 500 mg QAM PO 03/30/21 09:00 04/02/21 12:37 DC 04/02/21 08:07 Divalproex Sodium (Depakote Er) 750 mg BID PO 04/03/21 09:00 04/11/21 08:38 Divalproex Sodium (Depakote Er) 750 mg QHS PO 03/29/21 21:00 04/02/21 23:00 DC 04/02/21 19:49 Fluphenazine HCl (Prolixin) 10 mg QAM PO 03/30/21 09:00 04/07/21 09:21 DC 04/07/21 08:01 Fluphenazine HCl (Prolixin) 10 mg QHS PO 04/03/21 21:00 04/07/21 09:21 DC 04/06/21 20:03 Fluphenazine HCl (Prolixin) 20 mg QHS PO 03/29/21 21:00 04/03/21 09:47 DC 04/02/21 19:49 Home Med (Med Rec Complete!) ASDIRECTED XX 03/28/21 20:35 03/28/21 20:37 DC Magnesium Hydroxide (Milk Of Magnesia) 30 ml DAILYPRN PRN PO CONSTIPATION 03/29/21 12:50 Nicotine (Nicoderm Cq 21mg) 1 patch DAILY TD 03/29/21 09:00 03/30/21 15:52 DC 03/30/21 08:45 Nicotine (Nicoderm Cq 21mg) 1 patch DAILY TD 03/29/21 18:35 04/11/21 08:38 Olanzapine (ZyPREXA ZYDIS) 5 mg STAT STAT PO 04/08/21 18:30 04/08/21 18:32 DC 04/08/21 18:35 Paliperidone Palmitate (Invega Sustenna) 234 mg Q30D IM 05/03/21 09:00 04/03/21 10:23 DC Paliperidone Palmitate (Invega Sustenna) 234 mg Q30D@0900 IM 04/03/21 09:00 04/03/21 14:04 Quetiapine Fumarate (SEROquel) 100 mg QHS PO 03/29/21 21:00 04/07/21 08:32 DC 04/05/21 21:55 Quetiapine Fumarate (SEROquel) 200 mg QHS PO 04/07/21 21:00 04/10/21 20:08 Trazodone HCl (Desyrel) 50 mg QHSP PRN PO INSOMNIA 03/29/21 12:50 04/09/21 20:25 Allergies Coded Allergies: Penicillins (Verified Allergy, Severe, hives, SOB, 10/03/20) ibuprofen (Verified Allergy, Unknown, hives, 03/02/21) shellfish derived (Verified Allergy, Unknown, hives, 03/02/21) NANCY CANDELARIA M.D. Apr 11, 2021 11:41
[2021-04-11 16:36] VITALS: BP 126/68
[2021-04-11] MEDS: QUEtiapine FUMARATE 200 MG TAB PO SCH (21:34)
[2021-04-12 06:02] VITALS: BP 137/72
[2021-04-12] MEDS: NICOTINE 21MG/24HR 1 EA TRANSDERMAL TD SCH (08:06)
[2021-04-12] MEDS: DIVALPROEX 250MG *ER* TAB PO SCH ×2 (08:07→21:05)
[2021-04-12] MEDS: BENZTROPINE 2 MG TAB PO SCH ×2 (08:07→21:05)
--- NOTE | 2021-04-12 08:52 | MHIPNPDOC ---
[facility] Progress Note Progress Note DATE OF SERVICE: 04/12/21 Patient stated that he is feeling better after moving to a private room. He slept very well last night and has no complaint with increased Seroquel. He is not as angry and is not expressing the same paranoid delusional ideas and is more pleasant after his initial reaction to the canceled discharge yesterday. He understands that AOT is trying to arrange a different living and is willing to cooperate even though his insight seems to be very limited. His tremor has markedly decreased after Prolixin was discontinued and he is in no acute physical distress. He is in better control and is willing to cooperate with the discharge plan and signed voluntary status. HISTORY:. VITAL SIGNS: See below. NEW TEST RESULTS:. CURRENT MEDICATIONS: See below. MENTAL STATUS EXAMINATION: Patient is a 46-year old male, who is in no acute distress. Speech: Is not as pressured. Language skills are fair. Thought processes including: Relevant. Thought content: Still delusional but not as pressured. Abstract reasoning, and computation: Poor. Description of associations: Better organized. Description of abnormal or psychotic thoughts: Remains grandiose and delusional but denies any command hallucination. Judgment: Fair. Insight: Poor. Orientation: Oriented. Recent and remote memory: No gross impairment. Attention span and concentration:. Language:. Fund of knowledge:. Mood: Not as angry or irritable. Affect: Labile. DIAGNOSES: 1.. Schizoaffective disorder 2.. 3.. ASSESSMENT: Cooperating with the treatment and signed the voluntary paper MANAGEMENT PLAN: Continue with the current medicine and wait for safe housing. TIME SPENT: 20 minutes. Vital Signs Vital Signs Date Time Temp Pulse Resp B/P (MAP) Pulse Ox O2 Delivery O2 Flow Rate FiO2 04/12/21 06:02 97.7 101 16 137/72 (93) 99 Room Air Current Medications Current Medications Medications (Trade) Dose Ordered Sig/Asim Route PRN Reason Start Time Stop Time Status Last Admin Dose Admin Acetaminophen (Tylenol Tab) 650 mg Q6HP PRN PO HEADACHE or MILD DISCOMFORT 03/29/21 12:50 04/11/21 00:09 Al Hydrox/Mg Hydrox/Simethicone (Mylanta) 30 ml Q4HP PRN PO HEARTBURN/INDIGESTION 03/29/21 12:50 04/02/21 18:04 Albuterol Sulfate (Proventil, Ventolin Hfa) 2 puff Q6HP PRN INH SHORTNESS OF BREATH 03/29/21 12:30 04/11/21 17:00 Benztropine Mesylate (Cogentin) 1 mg BID PO 03/29/21 21:00 03/31/21 09:57 DC 03/31/21 08:07 Benztropine Mesylate (Cogentin) 2 mg BID PO 03/31/21 21:00 04/12/21 08:07 Divalproex Sodium (Depakote Er) 500 mg QAM PO 03/30/21 09:00 04/02/21 12:37 DC 04/02/21 08:07 Divalproex Sodium (Depakote Er) 750 mg BID PO 04/03/21 09:00 04/12/21 08:07 Divalproex Sodium (Depakote Er) 750 mg QHS PO 03/29/21 21:00 04/02/21 23:00 DC 04/02/21 19:49 Fluphenazine HCl (Prolixin) 10 mg QAM PO 03/30/21 09:00 04/07/21 09:21 DC 04/07/21 08:01 Fluphenazine HCl (Prolixin) 10 mg QHS PO 04/03/21 21:00 04/07/21 09:21 DC 04/06/21 20:03 Fluphenazine HCl (Prolixin) 20 mg QHS PO 03/29/21 21:00 04/03/21 09:47 DC 04/02/21 19:49 Home Med (Med Rec Complete!) ASDIRECTED XX 03/28/21 20:35 03/28/21 20:37 DC Magnesium Hydroxide (Milk Of Magnesia) 30 ml DAILYPRN PRN PO CONSTIPATION 03/29/21 12:50 Nicotine (Nicoderm Cq 21mg) 1 patch DAILY TD 03/29/21 09:00 03/30/21 15:52 DC 03/30/21 08:45 Nicotine (Nicoderm Cq 21mg) 1 patch DAILY TD 03/29/21 18:35 04/12/21 08:06 Olanzapine (ZyPREXA ZYDIS) 5 mg STAT STAT PO 04/08/21 18:30 04/08/21 18:32 DC 04/08/21 18:35 Paliperidone Palmitate (Invega Sustenna) 234 mg Q30D IM 05/03/21 09:00 04/03/21 10:23 DC Paliperidone Palmitate (Invega Sustenna) 234 mg Q30D@0900 IM 04/03/21 09:00 04/03/21 14:04 Quetiapine Fumarate (SEROquel) 100 mg QHS PO 03/29/21 21:00 04/07/21 08:32 DC 04/05/21 21:55 Quetiapine Fumarate (SEROquel) 200 mg QHS PO 04/07/21 21:00 04/11/21 21:34 Trazodone HCl (Desyrel) 50 mg QHSP PRN PO INSOMNIA 03/29/21 12:50 04/09/21 20:25 Allergies Coded Allergies: Penicillins (Verified Allergy, Severe, hives, SOB, 10/03/20) ibuprofen (Verified Allergy, Unknown, hives, 03/02/21) shellfish derived (Verified Allergy, Unknown, hives, 03/02/21) NANCY CANDELARIA M.D. Apr 12, 2021 08:52
[2021-04-12] MEDS: ALBUTEROL 90 MCG/ACT 8GM HFA INHALER INH PRN ×2 (10:41→16:44)
[2021-04-12 16:16] VITALS: BP 116/70
[2021-04-12] MEDS: OLANZapine ORAL DISINTEGRATING TAB 5MG PO PRN (17:25)
[2021-04-12] MEDS: QUEtiapine FUMARATE 200 MG TAB PO SCH (21:05)
[2021-04-13 07:14] VITALS: BP 123/91
[2021-04-13] MEDS: ALBUTEROL 90 MCG/ACT 8GM HFA INHALER INH PRN ×2 (08:02→16:39)
[2021-04-13] MEDS: DIVALPROEX 250MG *ER* TAB PO SCH ×2 (08:04→20:12)
[2021-04-13] MEDS: BENZTROPINE 2 MG TAB PO SCH ×2 (08:04→20:12)
[2021-04-13] MEDS: NICOTINE 21MG/24HR 1 EA TRANSDERMAL TD SCH (08:05)
[2021-04-13] MEDS: OLANZapine ORAL DISINTEGRATING TAB 5MG PO PRN (08:59)
[2021-04-13] MEDS: ACETAMINOPHEN TAB 650MG DOSE (2X325MG) PO PRN ×2 (09:00→19:18)
--- NOTE | 2021-04-13 09:28 | MHIPNPDOC ---
[facility] Progress Note Progress Note DATE OF SERVICE: 04/13/21 Cooperating with the medicine and maintaining fairly good control. His tremor is much reduced and patient reports feeling better with the improvement. He understands that he may have a different housing arrangement sometime next week and is willing to cooperate. Although he continues to show chronic delusional ideas his behavior has been in good control with no bizarre aggressive or grossly inappropriate nature. HISTORY:. VITAL SIGNS: See below. NEW TEST RESULTS:. CURRENT MEDICATIONS: See below. MENTAL STATUS EXAMINATION: Patient is a 46-year old male, who is cooperative. Speech: Is able to give relevant answers. Language skills are fair. Thought processes including: Relevant. Thought content: Has chronic delusional thinking. Abstract reasoning, and computation: Poor. Description of associations: At times pressured and flighty. Description of abnormal or psychotic thoughts: Remains with a chronic paranoid and grandiose ideas. Judgment: Poor. Insight: Poor. Orientation: Appears oriented. Recent and remote memory: No gross impairment. Attention span and concentration:. Language:. Fund of knowledge:. Mood: Not angry or irritable. Affect: Blunted but appropriate. DIAGNOSES: 1.. Schizoaffective disorder 2.. 3.. ASSESSMENT: No new complaint and no acting out behavior MANAGEMENT PLAN: Continue with the current treatment plan. TIME SPENT: 15 minutes. Vital Signs Vital Signs Date Time Temp Pulse Resp B/P (MAP) Pulse Ox O2 Delivery O2 Flow Rate FiO2 04/13/21 07:14 97.4 94 16 123/91 (102) Room Air 04/12/21 16:16 99 Current Medications Current Medications Medications (Trade) Dose Ordered Sig/Asim Route PRN Reason Start Time Stop Time Status Last Admin Dose Admin Acetaminophen (Tylenol Tab) 650 mg Q6HP PRN PO HEADACHE or MILD DISCOMFORT 03/29/21 12:50 04/13/21 09:00 Al Hydrox/Mg Hydrox/Simethicone (Mylanta) 30 ml Q4HP PRN PO HEARTBURN/INDIGESTION 03/29/21 12:50 04/02/21 18:04 Albuterol Sulfate (Proventil, Ventolin Hfa) 2 puff Q6HP PRN INH SHORTNESS OF BREATH 03/29/21 12:30 04/13/21 08:02 Benztropine Mesylate (Cogentin) 1 mg BID PO 03/29/21 21:00 03/31/21 09:57 DC 03/31/21 08:07 Benztropine Mesylate (Cogentin) 2 mg BID PO 03/31/21 21:00 04/13/21 08:04 Divalproex Sodium (Depakote Er) 500 mg QAM PO 03/30/21 09:00 04/02/21 12:37 DC 04/02/21 08:07 Divalproex Sodium (Depakote Er) 750 mg BID PO 04/03/21 09:00 04/13/21 08:04 Divalproex Sodium (Depakote Er) 750 mg QHS PO 03/29/21 21:00 04/02/21 23:00 DC 04/02/21 19:49 Fluphenazine HCl (Prolixin) 10 mg QAM PO 03/30/21 09:00 04/07/21 09:21 DC 04/07/21 08:01 Fluphenazine HCl (Prolixin) 10 mg QHS PO 04/03/21 21:00 04/07/21 09:21 DC 04/06/21 20:03 Fluphenazine HCl (Prolixin) 20 mg QHS PO 03/29/21 21:00 04/03/21 09:47 DC 04/02/21 19:49 Home Med (Med Rec Complete!) ASDIRECTED XX 03/28/21 20:35 03/28/21 20:37 DC Magnesium Hydroxide (Milk Of Magnesia) 30 ml DAILYPRN PRN PO CONSTIPATION 03/29/21 12:50 Nicotine (Nicoderm Cq 21mg) 1 patch DAILY TD 03/29/21 09:00 03/30/21 15:52 DC 03/30/21 08:45 Nicotine (Nicoderm Cq 21mg) 1 patch DAILY TD 03/29/21 18:35 04/13/21 08:05 Olanzapine (ZyPREXA ZYDIS) 5 mg Q6HP PRN PO ANXIETY/AGITATION 04/12/21 17:20 04/13/21 08:59 Olanzapine (ZyPREXA ZYDIS) 5 mg STAT STAT PO 04/08/21 18:30 04/08/21 18:32 DC 04/08/21 18:35 Paliperidone Palmitate (Invega Sustenna) 234 mg Q30D IM 05/03/21 09:00 04/03/21 10:23 DC Paliperidone Palmitate (Invega Sustenna) 234 mg Q30D@0900 IM 04/03/21 09:00 04/03/21 14:04 Quetiapine Fumarate (SEROquel) 100 mg QHS PO 03/29/21 21:00 04/07/21 08:32 DC 04/05/21 21:55 Quetiapine Fumarate (SEROquel) 200 mg QHS PO 04/07/21 21:00 04/12/21 21:05 Trazodone HCl (Desyrel) 50 mg QHSP PRN PO INSOMNIA 03/29/21 12:50 04/09/21 20:25 Allergies Coded Allergies: Penicillins (Verified Allergy, Severe, hives, SOB, 10/03/20) ibuprofen (Verified Allergy, Unknown, hives, 03/02/21) shellfish derived (Verified Allergy, Unknown, hives, 03/02/21) NANCY CANDELARIA M.D. Apr 13, 2021 09:28
[2021-04-13] MEDS: MAALOX 30 ML SUSP *UDC PO PRN (14:17)
[2021-04-13 16:11] VITALS: BP 150/92
[2021-04-13] MEDS: QUEtiapine FUMARATE 200 MG TAB PO SCH (20:12)
[2021-04-14] MEDS: ACETAMINOPHEN TAB 650MG DOSE (2X325MG) PO PRN ×2 (05:21→18:20)
[2021-04-14] MEDS: BENZTROPINE 2 MG TAB PO SCH ×2 (08:09→20:01)
[2021-04-14] MEDS: NICOTINE 21MG/24HR 1 EA TRANSDERMAL TD SCH (08:09)
[2021-04-14] MEDS: DIVALPROEX 250MG *ER* TAB PO SCH ×2 (08:09→20:02)
[2021-04-14 08:30] VITALS: BP 132/80
--- NOTE | 2021-04-14 09:26 | MHIPNPDOC ---
[facility] Progress Note Progress Note DATE OF SERVICE: 04/14/21 The patient is maintaining good control and fully cooperating with his treatment and discharge plan. He understands that he will be going to a temporary respite place and [facility] but also understands that he will be moving into a supervised living and is fully cooperating with the plan. He feels better that his tremor has subsided and is able to sleep with his Seroquel and is not expressing grossly delusional thoughts and not showing any inappropriate or aggressive behavior. HISTORY:. VITAL SIGNS: See below. NEW TEST RESULTS:. CURRENT MEDICATIONS: See below. MENTAL STATUS EXAMINATION: Patient is a 46-year old male, who is in no acute distress. Speech: Is rational and relevant. Language skills are fair. Thought processes including: Relevant. Thought content: Not as preoccupied with his delusional thinking. Abstract reasoning, and computation: Poor better organized. Description of associations:. Description of abnormal or psychotic thoughts: Denies any command hallucination. Judgment: Fair. Insight: Fair. Orientation: Oriented. Recent and remote memory: No gross impairment. Attention span and concentration:. Language:. Fund of knowledge:. Mood: Pleasant denies any serious depression or anxiety. Affect: Animated. DIAGNOSES: 1.. Schizoaffective disorder 2.. 3.. ASSESSMENT: Appears to be at his baseline mental status MANAGEMENT PLAN: Continue with the current treatment and discharge plan. TIME SPENT: 15 minutes. Vital Signs Vital Signs Date Time Temp Pulse Resp B/P (MAP) Pulse Ox O2 Delivery O2 Flow Rate FiO2 04/14/21 08:30 97.4 87 21 132/80 (97) 98 Room Air Current Medications Current Medications Medications (Trade) Dose Ordered Sig/Asim Route PRN Reason Start Time Stop Time Status Last Admin Dose Admin Acetaminophen (Tylenol Tab) 650 mg Q6HP PRN PO HEADACHE or MILD DISCOMFORT 03/29/21 12:50 04/14/21 05:21 Al Hydrox/Mg Hydrox/Simethicone (Mylanta) 30 ml Q4HP PRN PO HEARTBURN/INDIGESTION 03/29/21 12:50 04/13/21 14:17 Albuterol Sulfate (Proventil, Ventolin Hfa) 2 puff Q6HP PRN INH SHORTNESS OF BREATH 03/29/21 12:30 04/13/21 16:39 Benztropine Mesylate (Cogentin) 1 mg BID PO 03/29/21 21:00 03/31/21 09:57 DC 03/31/21 08:07 Benztropine Mesylate (Cogentin) 2 mg BID PO 03/31/21 21:00 04/14/21 08:09 Divalproex Sodium (Depakote Er) 500 mg QAM PO 03/30/21 09:00 04/02/21 12:37 DC 04/02/21 08:07 Divalproex Sodium (Depakote Er) 750 mg BID PO 04/03/21 09:00 04/14/21 08:09 Divalproex Sodium (Depakote Er) 750 mg QHS PO 03/29/21 21:00 04/02/21 23:00 DC 04/02/21 19:49 Fluphenazine HCl (Prolixin) 10 mg QAM PO 03/30/21 09:00 04/07/21 09:21 DC 04/07/21 08:01 Fluphenazine HCl (Prolixin) 10 mg QHS PO 04/03/21 21:00 04/07/21 09:21 DC 04/06/21 20:03 Fluphenazine HCl (Prolixin) 20 mg QHS PO 03/29/21 21:00 04/03/21 09:47 DC 04/02/21 19:49 Home Med (Med Rec Complete!) ASDIRECTED XX 03/28/21 20:35 03/28/21 20:37 DC Magnesium Hydroxide (Milk Of Magnesia) 30 ml DAILYPRN PRN PO CONSTIPATION 03/29/21 12:50 Nicotine (Nicoderm Cq 21mg) 1 patch DAILY TD 03/29/21 09:00 03/30/21 15:52 DC 03/30/21 08:45 Nicotine (Nicoderm Cq 21mg) 1 patch DAILY TD 03/29/21 18:35 04/14/21 08:09 Olanzapine (ZyPREXA ZYDIS) 5 mg Q6HP PRN PO ANXIETY/AGITATION 04/12/21 17:20 04/13/21 08:59 Olanzapine (ZyPREXA ZYDIS) 5 mg STAT STAT PO 04/08/21 18:30 04/08/21 18:32 DC 04/08/21 18:35 Paliperidone Palmitate (Invega Sustenna) 234 mg Q30D IM 05/03/21 09:00 04/03/21 10:23 DC Paliperidone Palmitate (Invega Sustenna) 234 mg Q30D@0900 IM 04/03/21 09:00 04/03/21 14:04 Quetiapine Fumarate (SEROquel) 100 mg QHS PO 03/29/21 21:00 04/07/21 08:32 DC 04/05/21 21:55 Quetiapine Fumarate (SEROquel) 200 mg QHS PO 04/07/21 21:00 04/13/21 20:12 Trazodone HCl (Desyrel) 50 mg QHSP PRN PO INSOMNIA 03/29/21 12:50 04/09/21 20:25 Allergies Coded Allergies: Penicillins (Verified Allergy, Severe, hives, SOB, 10/03/20) ibuprofen (Verified Allergy, Unknown, hives, 03/02/21) shellfish derived (Verified Allergy, Unknown, hives, 03/02/21) NANCY CANDELARIA M.D. Apr 14, 2021 09:26
[2021-04-14] MEDS: ALBUTEROL 90 MCG/ACT 8GM HFA INHALER INH PRN ×2 (10:13→16:33)
[2021-04-14 16:25] VITALS: BP 114/75
[2021-04-14] MEDS: QUEtiapine FUMARATE 200 MG TAB PO SCH (20:01)
[2021-04-15] MEDS: ACETAMINOPHEN TAB 650MG DOSE (2X325MG) PO PRN ×2 (06:34→17:49)
[2021-04-15 06:45] VITALS: BP 110/54
[2021-04-15] MEDS: DIVALPROEX 250MG *ER* TAB PO SCH ×2 (08:18→20:04)
[2021-04-15] MEDS: BENZTROPINE 2 MG TAB PO SCH ×2 (08:18→20:02)
[2021-04-15] MEDS: NICOTINE 21MG/24HR 1 EA TRANSDERMAL TD SCH (08:18)
[2021-04-15] MEDS: ALBUTEROL 90 MCG/ACT 8GM HFA INHALER INH PRN ×2 (09:47→21:00)
[2021-04-15 16:40] VITALS: BP 153/89
[2021-04-15] MEDS: QUEtiapine FUMARATE 200 MG TAB PO SCH (20:02)
[2021-04-16] MEDS: ACETAMINOPHEN TAB 650MG DOSE (2X325MG) PO PRN ×2 (04:37→15:29)
[2021-04-16 05:32] VITALS: BP 140/70
[2021-04-16] MEDS: ALBUTEROL 90 MCG/ACT 8GM HFA INHALER INH PRN ×2 (07:23→20:07)
[2021-04-16] MEDS: NICOTINE 21MG/24HR 1 EA TRANSDERMAL TD SCH (08:18)
[2021-04-16] MEDS: DIVALPROEX 250MG *ER* TAB PO SCH ×2 (08:18→20:04)
[2021-04-16] MEDS: BENZTROPINE 2 MG TAB PO SCH ×2 (08:18→20:04)
[2021-04-16 16:28] VITALS: BP 138/90
[2021-04-16] MEDS: QUEtiapine FUMARATE 200 MG TAB PO SCH (20:04)
[2021-04-16] MEDS: traZODone 50 MG TAB PO PRN (20:04)
[2021-04-17 07:36] VITALS: BP 111/71
[2021-04-17] MEDS: NICOTINE 21MG/24HR 1 EA TRANSDERMAL TD SCH (07:58)
[2021-04-17] MEDS: DIVALPROEX 250MG *ER* TAB PO SCH ×2 (07:58→19:57)
[2021-04-17] MEDS: BENZTROPINE 2 MG TAB PO SCH ×2 (07:59→19:54)
[2021-04-17] MEDS: OLANZapine ORAL DISINTEGRATING TAB 5MG PO PRN ×2 (08:49→14:13)
--- NOTE | 2021-04-17 10:30 | MHIPNPDOC ---
[facility] Progress Note Progress Note DATE OF SERVICE: 04/17/21 Patient is fully cooperating with medications and has no new complaints. He is not tremulous anymore and no other physical complaints. He is still somewhat ra mbling and pressured and occasionally making inappropriate comments but overall is pleasant and maintaining good control. He has not been agitated aggressive or bizarre and is willing to cooperate with discharge plan to a respite place. HISTORY:. VITAL SIGNS: See below. NEW TEST RESULTS:. CURRENT MEDICATIONS: See below. MENTAL STATUS EXAMINATION: Patient is a 46-year old male, who is cooperative. Speech: Is rambling and flighty at times. Language skills are fair. Thought processes including: Pressured and flighty at times. Thought content: Remains somewhat grandiose. Abstract reasoning, and computation:. Description of associations: Organized. Description of abnormal or psychotic thoughts: Remains with a chronic delusional thinking. Judgment: Fair. Insight:. poor. Orientation: Oriented. Recent and remote memory: No gross impairment. Attention span and concentration: Poor. Language:. Fund of knowledge:. Mood: Reports feeling great. Affect: Not agitated. DIAGNOSES: 1.. Schizoaffective disorder 2.. 3.. ASSESSMENT: Cooperating and maintaining good control MANAGEMENT PLAN: Continue with the current medications and discharge plan. TIME SPENT: 15 minutes. Vital Signs Vital Signs Date Time Temp Pulse Resp B/P (MAP) Pulse Ox O2 Delivery O2 Flow Rate FiO2 04/17/21 07:36 97.6 90 16 111/71 (84) 97 Room Air Current Medications Current Medications Medications (Trade) Dose Ordered Sig/Asim Route PRN Reason Start Time Stop Time Status Last Admin Dose Admin Acetaminophen (Tylenol Tab) 650 mg Q6HP PRN PO HEADACHE or MILD DISCOMFORT 03/29/21 12:50 04/16/21 15:29 Al Hydrox/Mg Hydrox/Simethicone (Mylanta) 30 ml Q4HP PRN PO HEARTBURN/INDIGESTION 03/29/21 12:50 04/13/21 14:17 Albuterol Sulfate (Proventil, Ventolin Hfa) 2 puff Q6HP PRN INH SHORTNESS OF BREATH 03/29/21 12:30 04/16/21 20:07 Benztropine Mesylate (Cogentin) 1 mg BID PO 03/29/21 21:00 03/31/21 09:57 DC 03/31/21 08:07 Benztropine Mesylate (Cogentin) 2 mg BID PO 03/31/21 21:00 04/17/21 07:59 Divalproex Sodium (Depakote Er) 500 mg QAM PO 03/30/21 09:00 04/02/21 12:37 DC 04/02/21 08:07 Divalproex Sodium (Depakote Er) 750 mg BID PO 04/03/21 09:00 04/17/21 07:58 Divalproex Sodium (Depakote Er) 750 mg QHS PO 03/29/21 21:00 04/02/21 23:00 DC 04/02/21 19:49 Fluphenazine HCl (Prolixin) 10 mg QAM PO 03/30/21 09:00 04/07/21 09:21 DC 04/07/21 08:01 Fluphenazine HCl (Prolixin) 10 mg QHS PO 04/03/21 21:00 04/07/21 09:21 DC 04/06/21 20:03 Fluphenazine HCl (Prolixin) 20 mg QHS PO 03/29/21 21:00 04/03/21 09:47 DC 04/02/21 19:49 Home Med (Med Rec Complete!) ASDIRECTED XX 03/28/21 20:35 03/28/21 20:37 DC Magnesium Hydroxide (Milk Of Magnesia) 30 ml DAILYPRN PRN PO CONSTIPATION 03/29/21 12:50 Nicotine (Nicoderm Cq 21mg) 1 patch DAILY TD 03/29/21 09:00 03/30/21 15:52 DC 03/30/21 08:45 Nicotine (Nicoderm Cq 21mg) 1 patch DAILY TD 03/29/21 18:35 04/17/21 07:58 Olanzapine (ZyPREXA ZYDIS) 5 mg Q6HP PRN PO ANXIETY/AGITATION 04/12/21 17:20 04/17/21 08:49 Olanzapine (ZyPREXA ZYDIS) 5 mg STAT STAT PO 04/08/21 18:30 04/08/21 18:32 DC 04/08/21 18:35 Paliperidone Palmitate (Invega Sustenna) 234 mg Q30D IM 05/03/21 09:00 04/03/21 10:23 DC Paliperidone Palmitate (Invega Sustenna) 234 mg Q30D@0900 IM 04/03/21 09:00 04/03/21 14:04 Quetiapine Fumarate (SEROquel) 100 mg QHS PO 03/29/21 21:00 04/07/21 08:32 DC 04/05/21 21:55 Quetiapine Fumarate (SEROquel) 200 mg QHS PO 04/07/21 21:00 04/16/21 20:04 Trazodone HCl (Desyrel) 50 mg QHSP PRN PO INSOMNIA 03/29/21 12:50 04/16/21 20:04 Allergies Coded Allergies: Penicillins (Verified Allergy, Severe, hives, SOB, 10/03/20) ibuprofen (Verified Allergy, Unknown, hives, 03/02/21) shellfish derived (Verified Allergy, Unknown, hives, 03/02/21) NANCY CANDELARIA M.D. Apr 17, 2021 10:30
[2021-04-17] MEDS: ACETAMINOPHEN TAB 650MG DOSE (2X325MG) PO PRN ×2 (13:06→19:46)
[2021-04-17] MEDS: ALBUTEROL 90 MCG/ACT 8GM HFA INHALER INH PRN (15:25)
[2021-04-17 16:22] VITALS: BP 132/81
[2021-04-17] MEDS: traZODone 50 MG TAB PO PRN (19:54)
[2021-04-17] MEDS: QUEtiapine FUMARATE 200 MG TAB PO SCH (19:55)
[2021-04-18] MEDS: ACETAMINOPHEN TAB 650MG DOSE (2X325MG) PO PRN ×2 (05:53→13:21)
[2021-04-18 06:57] VITALS: BP 111/68
[2021-04-18] MEDS: BENZTROPINE 2 MG TAB PO SCH ×2 (08:14→19:58)
[2021-04-18] MEDS: DIVALPROEX 250MG *ER* TAB PO SCH ×2 (08:15→19:59)
[2021-04-18] MEDS: NICOTINE 21MG/24HR 1 EA TRANSDERMAL TD SCH (08:17)
--- NOTE | 2021-04-18 10:32 | MHIPNPDOC ---
[facility] Progress Note Progress Note DATE OF SERVICE: 04/18/21 No new complaint and no acting out behavior. He is still somewhat loose at times flighty and the maintaining chronic delusional grandiose thoughts but no bizarre or inappropriate behavior and is willing to cooperate with discharge plan. HISTORY:. VITAL SIGNS: See below. NEW TEST RESULTS:. CURRENT MEDICATIONS: See below. MENTAL STATUS EXAMINATION: Patient is a 46-year old male, who is in no acute distress. Speech: Is a little pressured and flighty. Language skills are fair. Thought processes including: Overall relevant. Thought content: Mildly grandiose. Abstract reasoning, and computation:. Description of associations: Somewhat flighty circumstantial. Description of abnormal or psychotic thoughts: Remains with a chronic delusional thinking. Judgment: Fair. Insight: Fair. Orientation: Oriented. Recent and remote memory: No gross confusion. Attention span and concentration:. Language:. Fund of knowledge:. Mood: Reports feeling good overall appropriate. Affect:. DIAGNOSES: 1.. Schizoaffective disorder 2.. 3.. ASSESSMENT: Maintaining his baseline mental status MANAGEMENT PLAN: Waiting for respite placement. TIME SPENT: 15 minutes. Vital Signs Vital Signs Date Time Temp Pulse Resp B/P (MAP) Pulse Ox O2 Delivery O2 Flow Rate FiO2 04/18/21 06:57 97.3 91 20 111/68 (82) 98 Room Air Current Medications Current Medications Medications (Trade) Dose Ordered Sig/Asim Route PRN Reason Start Time Stop Time Status Last Admin Dose Admin Acetaminophen (Tylenol Tab) 650 mg Q6HP PRN PO HEADACHE or MILD DISCOMFORT 03/29/21 12:50 04/18/21 05:53 Al Hydrox/Mg Hydrox/Simethicone (Mylanta) 30 ml Q4HP PRN PO HEARTBURN/INDIGESTION 03/29/21 12:50 04/13/21 14:17 Albuterol Sulfate (Proventil, Ventolin Hfa) 2 puff Q6HP PRN INH SHORTNESS OF BREATH 03/29/21 12:30 04/17/21 15:25 Benztropine Mesylate (Cogentin) 1 mg BID PO 03/29/21 21:00 03/31/21 09:57 DC 03/31/21 08:07 Benztropine Mesylate (Cogentin) 2 mg BID PO 03/31/21 21:00 04/18/21 08:14 Divalproex Sodium (Depakote Er) 500 mg QAM PO 03/30/21 09:00 04/02/21 12:37 DC 04/02/21 08:07 Divalproex Sodium (Depakote Er) 750 mg BID PO 04/03/21 09:00 04/18/21 08:15 Divalproex Sodium (Depakote Er) 750 mg QHS PO 03/29/21 21:00 04/02/21 23:00 DC 04/02/21 19:49 Fluphenazine HCl (Prolixin) 10 mg QAM PO 03/30/21 09:00 04/07/21 09:21 DC 04/07/21 08:01 Fluphenazine HCl (Prolixin) 10 mg QHS PO 04/03/21 21:00 04/07/21 09:21 DC 04/06/21 20:03 Fluphenazine HCl (Prolixin) 20 mg QHS PO 03/29/21 21:00 04/03/21 09:47 DC 04/02/21 19:49 Home Med (Med Rec Complete!) ASDIRECTED XX 03/28/21 20:35 03/28/21 20:37 DC Magnesium Hydroxide (Milk Of Magnesia) 30 ml DAILYPRN PRN PO CONSTIPATION 03/29/21 12:50 Nicotine (Nicoderm Cq 21mg) 1 patch DAILY TD 03/29/21 09:00 03/30/21 15:52 DC 03/30/21 08:45 Nicotine (Nicoderm Cq 21mg) 1 patch DAILY TD 03/29/21 18:35 04/18/21 08:17 Olanzapine (ZyPREXA ZYDIS) 5 mg Q6HP PRN PO ANXIETY/AGITATION 04/12/21 17:20 04/17/21 14:13 Olanzapine (ZyPREXA ZYDIS) 5 mg STAT STAT PO 04/08/21 18:30 04/08/21 18:32 DC 04/08/21 18:35 Paliperidone Palmitate (Invega Sustenna) 234 mg Q30D IM 05/03/21 09:00 04/03/21 10:23 DC Paliperidone Palmitate (Invega Sustenna) 234 mg Q30D@0900 IM 04/03/21 09:00 04/03/21 14:04 Quetiapine Fumarate (SEROquel) 100 mg QHS PO 03/29/21 21:00 04/07/21 08:32 DC 04/05/21 21:55 Quetiapine Fumarate (SEROquel) 200 mg QHS PO 04/07/21 21:00 04/17/21 19:55 Trazodone HCl (Desyrel) 50 mg QHSP PRN PO INSOMNIA 03/29/21 12:50 04/17/21 19:54 Allergies Coded Allergies: Penicillins (Verified Allergy, Severe, hives, SOB, 10/03/20) ibuprofen (Verified Allergy, Unknown, hives, 03/02/21) shellfish derived (Verified Allergy, Unknown, hives, 03/02/21) NANCY CANDELARIA M.D. Apr 18, 2021 10:32
[2021-04-18 18:09] VITALS: BP 143/86
[2021-04-18] MEDS: ALBUTEROL 90 MCG/ACT 8GM HFA INHALER INH PRN (18:24)
[2021-04-18] MEDS: QUEtiapine FUMARATE 200 MG TAB PO SCH (19:58)
[2021-04-18] MEDS: traZODone 50 MG TAB PO PRN (19:58)
[2021-04-19] MEDS: BENZTROPINE 2 MG TAB PO SCH ×2 (07:54→20:14)
[2021-04-19] MEDS: DIVALPROEX 250MG *ER* TAB PO SCH ×2 (07:55→20:14)
[2021-04-19] MEDS: NICOTINE 21MG/24HR 1 EA TRANSDERMAL TD SCH (07:56)
[2021-04-19] MEDS: ALBUTEROL 90 MCG/ACT 8GM HFA INHALER INH PRN ×2 (09:58→20:14)
[2021-04-19] MEDS: ACETAMINOPHEN TAB 650MG DOSE (2X325MG) PO PRN ×2 (09:59→17:05)
--- NOTE | 2021-04-19 11:31 | MHIPNPDOC ---
[facility] Progress Note Progress Note DATE OF SERVICE: 04/19/21 Patient remains in good control and quite pleasant on approach. He is cooperating with the medications and has no new complaint and is sleeping well. He understands the discharge plan and waiting for opening at respite place. HISTORY:. VITAL SIGNS: See below. NEW TEST RESULTS:. CURRENT MEDICATIONS: See below. MENTAL STATUS EXAMINATION: Patient is a 46-year old male, who is in no acute distress. Speech: Is relevant. Language skills are fair. Thought processes including: Productive but flighty. Thought content: Moderate grandiosity. Abstract reasoning, and computation:. Description of associations: Relevant. Description of abnormal or psychotic thoughts: Remains mildly grandiose and delusional. Judgment: Fair. Insight: Fair]. Orientation: Oriented. Recent and remote memory: No gross impairment. Attention span and concentration:. Language:. Fund of knowledge:. Mood: Euthymic. Affect: Pleasant. DIAGNOSES: 1.. Schizoaffective disorder 2.. 3.. ASSESSMENT: Continue current medicine and supportive therapy MANAGEMENT PLAN: Waiting for discharge to supervised living. TIME SPENT: 15 minutes. Vital Signs Vital Signs Date Time Temp Pulse Resp B/P (MAP) Pulse Ox O2 Delivery O2 Flow Rate FiO2 04/18/21 18:09 97.4 99 18 143/86 (105) 98 04/18/21 06:57 Room Air Current Medications Current Medications Medications (Trade) Dose Ordered Sig/Asim Route PRN Reason Start Time Stop Time Status Last Admin Dose Admin Acetaminophen (Tylenol Tab) 650 mg Q6HP PRN PO HEADACHE or MILD DISCOMFORT 03/29/21 12:50 04/19/21 09:59 Al Hydrox/Mg Hydrox/Simethicone (Mylanta) 30 ml Q4HP PRN PO HEARTBURN/INDIGESTION 03/29/21 12:50 04/13/21 14:17 Albuterol Sulfate (Proventil, Ventolin Hfa) 2 puff Q6HP PRN INH SHORTNESS OF BREATH 03/29/21 12:30 04/19/21 09:58 Benztropine Mesylate (Cogentin) 1 mg BID PO 03/29/21 21:00 03/31/21 09:57 DC 03/31/21 08:07 Benztropine Mesylate (Cogentin) 2 mg BID PO 03/31/21 21:00 04/19/21 07:54 Divalproex Sodium (Depakote Er) 500 mg QAM PO 03/30/21 09:00 04/02/21 12:37 DC 04/02/21 08:07 Divalproex Sodium (Depakote Er) 750 mg BID PO 04/03/21 09:00 04/19/21 07:55 Divalproex Sodium (Depakote Er) 750 mg QHS PO 03/29/21 21:00 04/02/21 23:00 DC 04/02/21 19:49 Fluphenazine HCl (Prolixin) 10 mg QAM PO 03/30/21 09:00 04/07/21 09:21 DC 04/07/21 08:01 Fluphenazine HCl (Prolixin) 10 mg QHS PO 04/03/21 21:00 04/07/21 09:21 DC 04/06/21 20:03 Fluphenazine HCl (Prolixin) 20 mg QHS PO 03/29/21 21:00 04/03/21 09:47 DC 04/02/21 19:49 Home Med (Med Rec Complete!) ASDIRECTED XX 03/28/21 20:35 03/28/21 20:37 DC Magnesium Hydroxide (Milk Of Magnesia) 30 ml DAILYPRN PRN PO CONSTIPATION 03/29/21 12:50 Nicotine (Nicoderm Cq 21mg) 1 patch DAILY TD 03/29/21 09:00 03/30/21 15:52 DC 03/30/21 08:45 Nicotine (Nicoderm Cq 21mg) 1 patch DAILY TD 03/29/21 18:35 04/19/21 07:56 Olanzapine (ZyPREXA ZYDIS) 5 mg Q6HP PRN PO ANXIETY/AGITATION 04/12/21 17:20 04/17/21 14:13 Olanzapine (ZyPREXA ZYDIS) 5 mg STAT STAT PO 04/08/21 18:30 04/08/21 18:32 DC 04/08/21 18:35 Paliperidone Palmitate (Invega Sustenna) 234 mg Q30D IM 05/03/21 09:00 04/03/21 10:23 DC Paliperidone Palmitate (Invega Sustenna) 234 mg Q30D@0900 IM 04/03/21 09:00 04/03/21 14:04 Quetiapine Fumarate (SEROquel) 100 mg QHS PO 03/29/21 21:00 04/07/21 08:32 DC 04/05/21 21:55 Quetiapine Fumarate (SEROquel) 200 mg QHS PO 04/07/21 21:00 04/18/21 19:58 Trazodone HCl (Desyrel) 50 mg QHSP PRN PO INSOMNIA 03/29/21 12:50 04/18/21 19:58 Allergies Coded Allergies: Penicillins (Verified Allergy, Severe, hives, SOB, 10/03/20) ibuprofen (Verified Allergy, Unknown, hives, 03/02/21) shellfish derived (Verified Allergy, Unknown, hives, 03/02/21) NANCY CANDELARIA M.D. Apr 19, 2021 11:31
[2021-04-19] MEDS: OLANZapine ORAL DISINTEGRATING TAB 5MG PO PRN (14:31)
[2021-04-19 17:39] VITALS: BP 130/79
[2021-04-19] MEDS: QUEtiapine FUMARATE 200 MG TAB PO SCH (20:14)
[2021-04-20] MEDS: ACETAMINOPHEN TAB 650MG DOSE (2X325MG) PO PRN ×2 (05:09→18:09)
[2021-04-20 06:15] VITALS: BP 137/68
[2021-04-20] MEDS: DIVALPROEX 250MG *ER* TAB PO SCH ×2 (08:29→20:43)
[2021-04-20] MEDS: BENZTROPINE 2 MG TAB PO SCH ×2 (08:29→20:43)
[2021-04-20] MEDS: NICOTINE 21MG/24HR 1 EA TRANSDERMAL TD SCH (08:30)
[2021-04-20] MEDS: ALBUTEROL 90 MCG/ACT 8GM HFA INHALER INH PRN ×2 (08:31→20:42)
[2021-04-20] MEDS: clonazePAM 0.5 MG TAB PO SCH ×3 (09:00→20:42)
[2021-04-20] MEDS: OLANZapine ORAL DISINTEGRATING TAB 5MG PO PRN (09:22)
--- NOTE | 2021-04-20 11:08 | MHIPNPDOC ---
[facility] Progress Note Progress Note DATE OF SERVICE: 04/20/21 Patient stated that he is feeling quite angry and frustrated because of delay in his discharge. Apparently his outpatient program is arranging for temporary h ousing prior to supervised living but is being delayed and patient is getting quite impatient. He is cooperating with his medications and maintaining control but reports feeling increasingly anxious and irritated. He is also showing moderate tardive dyskinesia-like symptoms on his right upper extremity and is being distressed. We will give him Klonopin to relieve some of his anxiety. HISTORY:. VITAL SIGNS: See below. NEW TEST RESULTS:. CURRENT MEDICATIONS: See below. MENTAL STATUS EXAMINATION: Patient is a 46-year old male, who is in no acute distress. Speech: Is pressured and rambling. Language skills are fair. Thought processes including: A little circumstantial. Thought content: Feeling frustrated and preoccupied about discharge plan. Abstract reasoning, and computation:. Description of associations: Somewhat loose and circumstantial. Description of abnormal or psychotic thoughts: Denies any command hallucination. Judgment: Fair. Insight:. poor. Orientation: Oriented. Recent and remote memory: No confusion. Attention span and concentration:. Language:. Fund of knowledge:. Mood: Moderately anxious and irritable. Affect: Little labile. DIAGNOSES: 1.. Schizoaffective disorder 2.. 3.. ASSESSMENT: More anxious and frustrated MANAGEMENT PLAN: Add Klonopin 1/2 mg 3 times a day. TIME SPENT: 15 minutes. Vital Signs Vital Signs Date Time Temp Pulse Resp B/P (MAP) Pulse Ox O2 Delivery O2 Flow Rate FiO2 04/20/21 06:15 97.3 81 18 137/68 (91) 95 Room Air Current Medications Current Medications Medications (Trade) Dose Ordered Sig/Asim Route PRN Reason Start Time Stop Time Status Last Admin Dose Admin Acetaminophen (Tylenol Tab) 650 mg Q6HP PRN PO HEADACHE or MILD DISCOMFORT 03/29/21 12:50 04/20/21 05:09 Al Hydrox/Mg Hydrox/Simethicone (Mylanta) 30 ml Q4HP PRN PO HEARTBURN/INDIGESTION 03/29/21 12:50 8 14:17 Albuterol Sulfate (Proventil, Ventolin Hfa) 2 puff Q6HP PRN INH SHORTNESS OF BREATH 03/29/21 12:30 8/12/21 08:31 Benztropine Mesylate (Cogentin) 1 mg BID PO 03/29/21 21:00 03/31/21 09:57 DC 03/31/21 08:07 Benztropine Mesylate (Cogentin) 2 mg BID PO 03/31/21 21:00 04/20/21 08:29 Divalproex Sodium (Depakote Er) 500 mg QAM PO 03/30/21 09:00 04/02/21 12:37 DC 04/02/21 08:07 Divalproex Sodium (Depakote Er) 750 mg BID PO 04/03/21 09:00 04/20/21 08:29 Divalproex Sodium (Depakote Er) 750 mg QHS PO 03/29/21 21:00 04/02/21 23:00 DC 04/02/21 19:49 Fluphenazine HCl (Prolixin) 10 mg QAM PO 03/30/21 09:00 04/07/21 09:21 DC 04/07/21 08:01 Fluphenazine HCl (Prolixin) 10 mg QHS PO 04/03/21 21:00 04/07/21 09:21 DC 04/06/21 20:03 Fluphenazine HCl (Prolixin) 20 mg QHS PO 03/29/21 21:00 04/03/21 09:47 DC 04/02/21 19:49 Home Med (Med Rec Complete!) ASDIRECTED XX 03/28/21 20:35 03/28/21 20:37 DC Magnesium Hydroxide (Milk Of Magnesia) 30 ml DAILYPRN PRN PO CONSTIPATION 03/29/21 12:50 Nicotine (Nicoderm Cq 21mg) 1 patch DAILY TD 03/29/21 09:00 03/30/21 15:52 DC 03/30/21 08:45 Nicotine (Nicoderm Cq 21mg) 1 patch DAILY TD 03/29/21 18:35 04/20/21 08:30 Olanzapine (ZyPREXA ZYDIS) 5 mg Q6HP PRN PO ANXIETY/AGITATION 04/12/21 17:20 04/20/21 09:22 Olanzapine (ZyPREXA ZYDIS) 5 mg STAT STAT PO 04/08/21 18:30 04/08/21 18:32 DC 04/08/21 18:35 Paliperidone Palmitate (Invega Sustenna) 234 mg Q30D IM 05/03/21 09:00 04/03/21 10:23 DC Paliperidone Palmitate (Invega Sustenna) 234 mg Q30D@0900 IM 04/03/21 09:00 04/03/21 14:04 Quetiapine Fumarate (SEROquel) 100 mg QHS PO 03/29/21 21:00 04/07/21 08:32 DC 04/05/21 21:55 Quetiapine Fumarate (SEROquel) 200 mg QHS PO 04/07/21 21:00 04/19/21 20:14 Trazodone HCl (Desyrel) 50 mg QHSP PRN PO INSOMNIA 03/29/21 12:50 04/18/21 19:58 Allergies Coded Allergies: Penicillins (Verified Allergy, Severe, hives, SOB, 10/03/20) ibuprofen (Verified Allergy, Unknown, hives, 03/02/21) shellfish derived (Verified Allergy, Unknown, hives, 03/02/21) NANCY CANDELARIA M.D. Apr 20, 2021 11:08
[2021-04-20 19:20] VITALS: BP 145/82
[2021-04-20] MEDS: QUEtiapine FUMARATE 200 MG TAB PO SCH ×2 (20:43→21:00)
[2021-04-21] MEDS: ACETAMINOPHEN TAB 650MG DOSE (2X325MG) PO PRN ×2 (05:24→12:40)
[2021-04-21 06:34] VITALS: BP 138/72
[2021-04-21] MEDS: BENZTROPINE 2 MG TAB PO SCH ×2 (08:14→20:12)
[2021-04-21] MEDS: clonazePAM 0.5 MG TAB PO SCH ×3 (08:14→20:12)
[2021-04-21] MEDS: DIVALPROEX 250MG *ER* TAB PO SCH ×2 (08:15→20:13)
[2021-04-21] MEDS: NICOTINE 21MG/24HR 1 EA TRANSDERMAL TD SCH (08:15)
--- NOTE | 2021-04-21 10:35 | MHIPNPDOC ---
[facility] Progress Note Progress Note DATE OF SERVICE: 04/21/21 Patient reports feeling a little less anxious and not as restless after taking Klonopin. He does not feel drowsy or sedated has no new complaints. He is stil l feeling quite frustrated for his delayed discharge but is quite pleasant on approach and fully cooperating with the treatment. HISTORY:. VITAL SIGNS: See below. NEW TEST RESULTS:. CURRENT MEDICATIONS: See below. MENTAL STATUS EXAMINATION: Patient is a 46-year old male, who is in no acute distress. Speech: Is relevant. Language skills are fair. Thought processes including: Responding appropriately. Thought content: Not expressing any delusional ideas. Abstract reasoning, and computation:. Description of associations: Rambling and circumstantial. Description of abnormal or psychotic thoughts: Remains somewhat grandiose and paranoid. Judgment: Poor. Insight:. poor. Orientation: Well oriented. Recent and remote memory: No gross impairment. Attention span and concentration:. Language:. Fund of knowledge:. Mood: Not as irritable or angry. Affect: Slightly elevated but overall appropriate. DIAGNOSES: 1.. Schizoaffective disorder 2.. 3.. ASSESSMENT: Maintaining his baseline mental status MANAGEMENT PLAN: Continue with the current treatment and waiting for placement. TIME SPENT: 15 minutes. Vital Signs Vital Signs Date Time Temp Pulse Resp B/P (MAP) Pulse Ox O2 Delivery O2 Flow Rate FiO2 04/21/21 06:34 96.9 88 18 138/72 (94) 98 Room Air Current Medications Current Medications Medications (Trade) Dose Ordered Sig/Asim Route PRN Reason Start Time Stop Time Status Last Admin Dose Admin Acetaminophen (Tylenol Tab) 650 mg Q6HP PRN PO HEADACHE or MILD DISCOMFORT 03/29/21 12:50 04/21/21 05:24 Al Hydrox/Mg Hydrox/Simethicone (Mylanta) 30 ml Q4HP PRN PO HEARTBURN/INDIGESTION 03/29/21 12:50 04/13/21 14:17 Albuterol Sulfate (Proventil, Ventolin Hfa) 2 puff Q6HP PRN INH SHORTNESS OF BREATH 03/29/21 12:30 04/20/21 20:42 Benztropine Mesylate (Cogentin) 1 mg BID PO 03/29/21 21:00 03/31/21 09:57 DC 03/31/21 08:07 Benztropine Mesylate (Cogentin) 2 mg BID PO 03/31/21 21:00 04/21/21 08:14 Clonazepam (KlonoPIN) 0.5 mg TID PO 04/20/21 09:00 04/21/21 08:14 Divalproex Sodium (Depakote Er) 500 mg QAM PO 03/30/21 09:00 04/02/21 12:37 DC 04/02/21 08:07 Divalproex Sodium (Depakote Er) 750 mg BID PO 04/03/21 09:00 04/21/21 08:15 Divalproex Sodium (Depakote Er) 750 mg QHS PO 03/29/21 21:00 04/02/21 23:00 DC 04/02/21 19:49 Fluphenazine HCl (Prolixin) 10 mg QAM PO 03/30/21 09:00 04/07/21 09:21 DC 04/07/21 08:01 Fluphenazine HCl (Prolixin) 10 mg QHS PO 04/03/21 21:00 04/07/21 09:21 DC 04/06/21 20:03 Fluphenazine HCl (Prolixin) 20 mg QHS PO 03/29/21 21:00 04/03/21 09:47 DC 04/02/21 19:49 Home Med (Med Rec Complete!) ASDIRECTED XX 03/28/21 20:35 03/28/21 20:37 DC Magnesium Hydroxide (Milk Of Magnesia) 30 ml DAILYPRN PRN PO CONSTIPATION 03/29/21 12:50 Nicotine (Nicoderm Cq 21mg) 1 patch DAILY TD 03/29/21 09:00 03/30/21 15:52 DC 03/30/21 08:45 Nicotine (Nicoderm Cq 21mg) 1 patch DAILY TD 03/29/21 18:35 04/21/21 08:15 Olanzapine (ZyPREXA ZYDIS) 5 mg Q6HP PRN PO ANXIETY/AGITATION 04/12/21 17:20 04/20/21 09:22 Olanzapine (ZyPREXA ZYDIS) 5 mg STAT STAT PO 04/08/21 18:30 04/08/21 18:32 DC 04/08/21 18:35 Paliperidone Palmitate (Invega Sustenna) 234 mg Q30D IM 05/03/21 09:00 04/03/21 10:23 DC Paliperidone Palmitate (Invega Sustenna) 234 mg Q30D@0900 IM 04/03/21 09:00 04/03/21 14:04 Quetiapine Fumarate (SEROquel) 100 mg QHS PO 03/29/21 21:00 04/07/21 08:32 DC 04/05/21 21:55 Quetiapine Fumarate (SEROquel) 200 mg QHS PO 04/07/21 21:00 04/19/21 20:14 Trazodone HCl (Desyrel) 50 mg QHSP PRN PO INSOMNIA 03/29/21 12:50 04/18/21 19:58 Allergies Coded Allergies: Penicillins (Verified Allergy, Severe, hives, SOB, 10/03/20) ibuprofen (Verified Allergy, Unknown, hives, 03/02/21) shellfish derived (Verified Allergy, Unknown, hives, 03/02/21) NANCY CANDELARIA M.D. Apr 21, 2021 10:35
[2021-04-21 17:13] VITALS: BP 145/72
[2021-04-21] MEDS: ALBUTEROL 90 MCG/ACT 8GM HFA INHALER INH PRN (18:32)
[2021-04-21] MEDS: QUEtiapine FUMARATE 200 MG TAB PO SCH (20:12)
[2021-04-22 07:19] VITALS: BP 132/90
[2021-04-22] MEDS: clonazePAM 0.5 MG TAB PO SCH ×3 (08:12→20:09)
[2021-04-22] MEDS: DIVALPROEX 250MG *ER* TAB PO SCH ×2 (08:13→20:09)
[2021-04-22] MEDS: BENZTROPINE 2 MG TAB PO SCH ×2 (08:14→20:09)
[2021-04-22] MEDS: NICOTINE 21MG/24HR 1 EA TRANSDERMAL TD SCH (08:15)
[2021-04-22] MEDS: ACETAMINOPHEN TAB 650MG DOSE (2X325MG) PO PRN (12:33)
[2021-04-22 17:11] VITALS: BP 122/78
[2021-04-22] MEDS: QUEtiapine FUMARATE 200 MG TAB PO SCH (20:09)
[2021-04-22] MEDS: ALBUTEROL 90 MCG/ACT 8GM HFA INHALER INH PRN (20:13)
[2021-04-23 06:38] VITALS: BP 123/74
[2021-04-23] MEDS: ALBUTEROL 90 MCG/ACT 8GM HFA INHALER INH PRN (08:08)
[2021-04-23] MEDS: BENZTROPINE 2 MG TAB PO SCH ×2 (08:10→20:23)
[2021-04-23] MEDS: clonazePAM 0.5 MG TAB PO SCH ×3 (08:10→20:23)
[2021-04-23] MEDS: DIVALPROEX 250MG *ER* TAB PO SCH ×2 (08:11→20:24)
[2021-04-23] MEDS: NICOTINE 21MG/24HR 1 EA TRANSDERMAL TD SCH (08:12)
[2021-04-23] MEDS: MAALOX 30 ML SUSP *UDC PO PRN (10:38)
[2021-04-23] MEDS: ACETAMINOPHEN TAB 650MG DOSE (2X325MG) PO PRN (14:44)
[2021-04-23 18:17] VITALS: BP 141/90
[2021-04-23] MEDS: QUEtiapine FUMARATE 200 MG TAB PO SCH (20:23)
[2021-04-24] MEDS: ACETAMINOPHEN TAB 650MG DOSE (2X325MG) PO PRN (06:38)
[2021-04-24] MEDS: ALBUTEROL 90 MCG/ACT 8GM HFA INHALER INH PRN (06:38)
[2021-04-24 06:42] VITALS: BP 140/88
[2021-04-24] MEDS: NICOTINE 21MG/24HR 1 EA TRANSDERMAL TD SCH (08:07)
[2021-04-24] MEDS: DIVALPROEX 250MG *ER* TAB PO SCH (08:10)
[2021-04-24] MEDS: BENZTROPINE 2 MG TAB PO SCH (08:10)
[2021-04-24] MEDS: clonazePAM 0.5 MG TAB PO SCH (08:11)
[2021-04-24] MEDS ORDERED: CLON0.5T2 PO (09:28)
--- NOTE | 2021-04-24 13:23 | MHDSPDOC ---
[facility] Discharge Summary Discharge Summary DATE OF ADMISSION: Mar 29, 2021 at 12:27 DATE OF DISCHARGE: Apr 24, 2021 at 09:35 DISCHARGE DIAGNOSES: 1. Schizoaffective disorder REASON FOR ADMISSION: Patient is a 45 -year-old Single, Disabled, Domiciled, , male, who has a long extensive psychiatric history including recent discharge from inpatient unit a week ago. Patient was brought to emergency room from his [facility] due to reported inappropriate sexual preoccupations and the behavior along with the threatening behavior to the female staff at his care home. The patient stated that he did not think he did anything wrong but he knew that he was trying to get very friendly with the staff. He is smiling inappropriately and very evasive about being threatening but admits that he could have been somewhat inappropriate. On admission exam patient denies any thoughts of harming anybody and denies any command hallucination but is expressing significant delusional thinking where he believes that people are jealous of him because he is a millionaire. Patient claims that he has been compliant with all his medications but was feeling upset and angry because he missed his brother's for some unclear reason at his care home. He is superficially denying any hallucination or paranoia but he appears somewhat elevated and inappropriate with very little understanding of his behavior. He denies any command hallucination and denies any thoughts of suicide or aggressive nature and is willing to cooperate with the treatment but does not know if he can return to the care home or not. VITAL SIGNS: See below. CONSULTANTS INVOLVED: See Medical H + P by Hospitalist TREATMENT AND PROGRESS ON THE UNIT: Patient was admitted to the [facility] on a legal status he was afforded the following treatment modalities: 1) Individual Therapy 2) Group Therapy 3) Medication Management 4) Milieu Therapy 5) Safe Environment HOSPITAL COURSE: Patient was admitted to [facility] on a legal status and eventually he was converted to voluntary. Patient was seen for supportive therapy and restarted on his Prolixin 10 mg in the morning and 20 mg at bedtime and continued on Depakote 500 mg in the morning and 750 mg at bedtime. He was also maintained on his regular paliperidone injection 234 mg IM every 30 days and he received his dose on April 03 and his next dose will be May 03, 2021. 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 Patient however is not showing no improvement and if any he is tremor is even worse and is affecting his postures also. Due to significant parkinsonian side effect his Prolixin was discontinued and he was given increased the Seroquel 200 mg at bedtime. Pt found medications beneficial and tolerated them well. He has fully cooperated with this and his tremor is significantly reduced and he is in no acute physical distress.. Planned discharge was canceled on April 10 after the [facility] recommended that he be placed in a supervised living. Patient stated that he was feeling quite angry and frustrated because of delay in his discharge. His outpatient program had arranged for temporary housing prior to supervised living but it was being delayed and patient became quite impatient waiting for the discharge plans to finalize. Mood, anxiety, and intrusive thoughts improved with treatment. Pt attended groups daily during stay. Pts symptoms improved with treatment. Patient has fully cooperated with the treatment and maintained good control. His delusional ideas persists but he is not preoccupied with his delusional thoughts of being a millionaire and is not bizarre or agitated. He has not shown any more sexually inappropriate behavior and he is much more pleasant appropriate and in good control. He is denying any command hallucination and denies any thoughts of harming anybody and is willing to return to his care home and cooperate with the treatment. Pt was discharged home with follow-up with [facility] and [facility]. Pt felt safe for discharge. DISCHARGE ASSESSMENT: In today's interview, patient is alert and oriented, pts dress is appropriate. Hygiene and grooming is well-kempt. Smiles on approach and is pleasant and engaged in the interview. Denies depression and anxiety. Denies suicidal and homicidal ideation, planning or intent. Denies and is not observed with ubaldo, psychotic symptoms of delusions, bizarre thinking, obsessions, paranoia, ruminations illogical thoughts, flight of ideas or having poor insight and judgement. Patient has baseline mentation, declines further hospitalization on a voluntary status and meets criteria for discharge today. Improved stable and not a danger to himself or other people. MENTAL STATUS EXAMINATION ON DISCHARGE: Patient is a 46-year old Single, Disabled, male, who due to report of increasing sexually inappropriate behavior and threatening behavior, at his discharge interview, he has improved and is in no acute distress. Speech: Is relevant. Language skills are fair. Thought processes including: Responding appropriately. Thought content: Not expressing any delusional ideas. Abstract reasoning, and computation: Fair Description of associations: Rambling and circumstantial. Description of abnormal or psychotic thoughts: Remains somewhat grandiose and paranoid. Judgment: Fair. Insight: Fair. Orientation: Well oriented. Recent and remote memory: No gross impairment. Attention span and concentration: Fair Language: Fair Fund of knowledge: Below average Mood: Not as irritable or angry. Affect: Slightly elevated but overall appropriate. MEDICATIONS ON DISCHARGE: See Medication Reconciliation PLAN/FOLLOWUP ARRANGEMENTS: Patient is returning to [facility]. And follow up with [facility] The amount of time spent in the coordination of care for this patient was approximately 25 minutes. ETOH/Disorder Med Rx ETOH/DRUG DISORDER RX: N/A Vital Signs/I&Os Vital Signs Date Time Temp Pulse Resp B/P (MAP) Pulse Ox O2 Delivery O2 Flow Rate FiO2 04/24/21 06:42 97.0 100 17 140/88 (105) 04/23/21 06:38 96 Room Air Medications Scheduled Benztropine Mesylate (Benztropine Mesylate) 2 Mg Tablet, 2 MG PO BID for side effect for 7 Days, #14 Clonazepam (Clonazepam) 0.5 Mg Tablet, 0.5 MG PO TID for Anxiety, #21 Divalproex Sodium (Divalproex Sodium ER) 250 Mg Tab.er.24h, 750 MG PO QHS, (Reported) Divalproex Sodium (Divalproex Sodium ER) 500 Mg Tab.er.24h, 500 MG PO QAM, (Reported) Paliperidone Palmitate (Invega Sustenna) 234 Mg/1.5 Ml Syringe, 234 MG IM Q30D@0900 for psychosis for 30 Days, #1 Quetiapine Fumarate (Quetiapine Fumarate) 200 Mg Tablet, 200 MG PO QHS for psychosis for 7 Days, #7 Allergies Coded Allergies: Penicillins (Verified Allergy, Severe, hives, SOB, 10/03/20) ibuprofen (Verified Allergy, Unknown, hives, 03/02/21) shellfish derived (Verified Allergy, Unknown, hives, 03/02/21) TAYO BARAJAS NP Apr 24, 2021 13:23
[2021-04-24] MEDS ORDERED: QUET200T2 PO (15:35)
[2021-04-24] MEDS ORDERED: BENZ2TAB5 PO (15:35)
[2021-04-24] MEDS ORDERED: INVE234I IM (15:35)
[2021-05-03] MEDS ORDERED: PALIPERIDONE PALMITATE 234MG/1.5ML INJ (INVEGA)(FREE PSY INPT ONLY) IM SCH (09:00)
== END 2021-04-24 09:35 | disposition home or self-care (01) | DRG 885 ==
LOC: M ED 14:04 → M ED INP 03-29 12:27 → M PSY 03-29 13:26
PROVIDERS: ADMIT Psychiatry & Neurology Psychiatry; ATTEND Psychiatry & Neurology Psychiatry
DX: F25.9 Schizoaffective disorder, unspecified (principal); Z79.899 Other long term (current) drug therapy; Z88.0 Allergy status to penicillin; Z88.6 Allergy status to analgesic agent; Z91.013 Allergy to seafood; M54.9 Dorsalgia, unspecified; F90.9 Attention-deficit hyperactivity disorder, unspecified type; F31.9 Bipolar disorder, unspecified; I10 Essential (primary) hypertension; E78.5 Hyperlipidemia, unspecified; J44.9 Chronic obstructive pulmonary disease, unspecified; G40.909 Epilepsy, unspecified, not intractable, without status epilepticus; F17.210 Nicotine dependence, cigarettes, uncomplicated; Z20.822 Contact with and (suspected) exposure to COVID-19

== ENCOUNTER 2021-04-26 22:55 | Emergency (ER) | payer MEDICARE, MEDICAID ==
[~2021-04-26] VITALS: Ht 175.3 cm; Wt 88.4 kg
[~2021-04-26 22:55] MED LIST changes: +BENZ-52 PO; +BENZ2TAB5 PO; +CLON0.5T2 PO; +DIVA250T7 PO; +DIVA500T9 PO; +INVE234I IM; +QUET200T2 PO
[2021-04-27] MEDS ORDERED: ACETAMINOPHEN TAB 650MG DOSE (2X325MG) PO ONE (01:10)
[2021-04-27 02:07] VITALS: BP 129/88
[2021-04-28] MEDS ORDERED: CLON0.5T2 PO (11:18)
== END 2021-04-27 01:31 | disposition left against medical advice (07) ==
LOC: M ED 22:55
DX: S93.402A Sprain of unspecified ligament of left ankle, initial encounter (principal); X50.9XXA Other and unspecified overexertion or strenuous movements or postures, initial encounter; Y92.018 Other place in single-family (private) house as the place of occurrence of the external cause; I10 Essential (primary) hypertension; E78.5 Hyperlipidemia, unspecified; G40.909 Epilepsy, unspecified, not intractable, without status epilepticus; F31.9 Bipolar disorder, unspecified; F90.9 Attention-deficit hyperactivity disorder, unspecified type; K76.9 Liver disease, unspecified; Z79.899 Other long term (current) drug therapy; Z88.0 Allergy status to penicillin; Z88.8 Allergy status to other drugs, medicaments and biological substances; Z91.018 Allergy to other foods; F17.210 Nicotine dependence, cigarettes, uncomplicated

== ENCOUNTER 2021-05-02 06:55 | Emergency (ER) | payer MEDICARE, MEDICAID ==
[~2021-05-02] VITALS: Ht 175.3 cm; Wt 86.7 kg
[2021-05-02 06:59] VITALS: BP 139/100
== END 2021-05-02 16:19 | disposition home or self-care (01) ==
LOC: M ED 06:55
DX: M25.561 Pain in right knee (principal); M25.562 Pain in left knee; I10 Essential (primary) hypertension; E78.5 Hyperlipidemia, unspecified; F33.9 Major depressive disorder, recurrent, unspecified; F90.9 Attention-deficit hyperactivity disorder, unspecified type; R56.9 Unspecified convulsions; Z88.0 Allergy status to penicillin; Z88.8 Allergy status to other drugs, medicaments and biological substances; Z91.018 Allergy to other foods; F17.210 Nicotine dependence, cigarettes, uncomplicated; Z79.899 Other long term (current) drug therapy

== ENCOUNTER 2021-05-08 15:00 | Emergency (ER) | payer MEDICARE, MEDICAID ==
[~2021-05-08] VITALS: Ht 175.3 cm; Wt 86.3 kg
[2021-05-08 15:01] VITALS: BP 128/76
[2021-05-10] MEDS ORDERED: ANOR1AER (03:17)
[2021-05-10] MEDS ORDERED: ALBU8.5H (03:17)
== END 2021-05-08 15:26 | disposition left against medical advice (07) ==
LOC: M ED 15:00
DX: Z53.29 Procedure and treatment not carried out because of patient's decision for other reasons (principal)

== ENCOUNTER 2021-05-10 03:03 | Emergency (ER) | payer MEDICARE, MEDICAID ==
[~2021-05-10] VITALS: Ht 175.3 cm; Wt 86.1 kg
[2021-05-10 03:03] VITALS: BP 126/88
[2021-05-10] MEDS ORDERED: ALBU8.5H INH (03:17)
[2021-05-10] MEDS ORDERED: ANOR1AER INH (03:17)
== END 2021-05-10 03:20 | disposition left against medical advice (07) ==
LOC: M ED 03:03
DX: Z53.29 Procedure and treatment not carried out because of patient's decision for other reasons (principal)

== ENCOUNTER 2021-05-12 14:08 | Inpatient (IN) | payer MEDICARE, MEDICAID ==
[~2021-05-12] VITALS: Ht 175.3 cm; Wt 87.5 kg
[~2021-05-12 14:08] MED LIST changes: +ALBU8.5H INH; +ANOR1AER INH
[2021-05-12 17:17] LABS: HEMATOCRIT 41.6 % (42.0-52.0); HEMOGLOBIN 13.6 g/dl (13.5-17.5); MEAN CORPUSCULAR HEMOGLOBIN 30.5 pg (27.0-33.0); MEAN CORPUSCULAR HGB CONC 32.7 g/dl (32.0-36.5); MEAN CORPUSCULAR VOLUME 93.3 fl (80.0-96.0); PLATELET COUNT, AUTOMATED 289 10^3/uL (150-450); RED BLOOD COUNT 4.46 10^6/uL (4.30-6.10); WHITE BLOOD COUNT 6.8 10^3/uL (4.0-10.0)
[2021-05-12 17:46] LABS: ACETAMINOPHEN LEVEL < 2.0 UG/ML (10.0-30.0); ALBUMIN 3.1 GM/DL (3.2-5.2); ALT/SGPT 65 U/L (12-78); BILIRUBIN,DIRECT < 0.1 MG/DL (0.0-0.2); BILIRUBIN,TOTAL 0.3 MG/DL (0.2-1.0); BLOOD UREA NITROGEN 4 MG/DL (7-18); CALCIUM LEVEL 8.8 MG/DL (8.5-10.1); CARBON DIOXIDE LEVEL 28 MEQ/L (21-32); CHLORIDE LEVEL 103 MEQ/L (98-107); CREATININE FOR GFR 0.52 MG/DL (0.70-1.30); ETHYL ALCOHOL (ETHANOL) 0.006 % (0.000-0.010); GLOMERULAR FILTRATION RATE > 60.0 (>60); GLUCOSE, FASTING 92 MG/DL (70-100); POTASSIUM SERUM 4.3 MEQ/L (3.5-5.1); SALICYLATE LEVEL 5.2 MG/DL (5.0-30.0); SODIUM LEVEL 137 MEQ/L (136-145); THYROID STIMULATING HORMONE 0.434 uIU/ML (0.358-3.740); TOTAL PROTEIN 6.5 GM/DL (6.4-8.2)
[2021-05-12 17:50] LABS: AMPHETAMINES LEVEL URINE NEGATIVE (NEGATIVE); BARBITURATES URINE NEGATIVE (NEGATIVE); BENZODIAZEPINES URINE NEGATIVE (NEGATIVE); CANNABINOIDS URINE NEGATIVE (NEGATIVE); COCAINE METABOLITE URINE NEGATIVE (NEGATIVE); METHADONE URINE NEGATIVE (NEGATIVE); OPIATES URINE NEGATIVE (NEGATIVE); PHENCYCLIDINE URINE NEGATIVE (NEGATIVE)
[2021-05-12] MEDS ORDERED: MAALOX 30 ML SUSP *UDC PO PRN (20:05)
[2021-05-12] MEDS ORDERED: MOM 30ML SUSPENSION UDC PO PRN (20:05)
[2021-05-12] MEDS ORDERED: QUET200T2 PO (20:13)
[2021-05-12] MEDS ORDERED: INVE156I IM (20:13)
[2021-05-12] MEDS ORDERED: CLON0.5T2 PO (20:13)
[2021-05-12] MEDS ORDERED: DIVA250T7 PO (20:13)
[2021-05-12] MEDS ORDERED: BENZ2TAB5 PO (20:13)
[2021-05-12] MEDS ORDERED: HOME MED LIST COMPLETE! XX SCH (20:20)
[2021-05-13] MEDS: BENZTROPINE 1 MG TAB PO SCH ×3 (00:22→21:52)
[2021-05-13] MEDS: clonazePAM 0.5 MG TAB PO SCH ×3 (00:22→21:52)
[2021-05-13 00:56] LABS: RSV AMPLIFICATION NEGATIVE (NEGATIVE)
[2021-05-13 01:36] VITALS: BP 136/87
[2021-05-13] MEDS: NICOTINE 21MG/24HR 1 EA TRANSDERMAL TD SCH (08:22)
--- NOTE | 2021-05-13 12:57 | HPEPDOC ---
[facility] Medical History & Physical Date of Admission May 12, 2021 Date of Service: May 13, 2021 History and Physical CHIEF COMPLAINT: Agitation HISTORY OF PRESENT ILLNESS: 46-year-old male brought in by police and admitted to inpatient mental health unit for agitated, and aggressive behaviors. As per documentation it appears he has also been making homicidal threats. PAST MEDICAL HISTORY: Denies PAST SURGICAL HISTORY: Denies SOCIAL HISTORY: Admits to nicotine abuse - 10 cigarettes/day x 5 years FAMILY HISTORY: Father: of CA/CAD as per patient Mother: at 77, had extensive cancer as per patient ALLERGIES: Please see below. REVIEW OF SYSTEMS: Negative except as per HPI HOME MEDICATIONS: Please see below. PHYSICAL EXAMINATION: Vital Signs: reviewed and within normal limits General: NAD, lying comfortably in bed HEENT: NC/AT, EOMI Neck: supple, no masses Chest: lungs CTA B/L Heart: +S1S2, RRR Abd: soft, NT, ND, +BS Ext: no edema Skin: no rashes MSK: full ROM at large joints Neuro: no gross focal deficits Psych: AAOx3 LABORATORY DATA: See below. MICROBIOLOGY: Please see below. A/P: 46-year-old male admitted to inpatient mental health unit for aggressive, agitated behavior with homicidal threats. #psychiatric disturbance - as per primary team Thank you for this consultation, please reconsult as needed. Vital Signs Vital Signs Date Time Temp Pulse Resp B/P (MAP) Pulse Ox O2 Delivery O2 Flow Rate FiO2 05/13/21 01:36 98.0 82 17 136/87 (103) 100 Room Air Laboratory Data Labs 24H Laboratory Tests 2 05/12/21 16:57: Nucleated Red Blood Cells % (auto) 0.0, Anion Gap 6L, Glomerular Filtration Rate > 60.0, Calcium Level 8.8, Total Bilirubin 0.3, Direct Bilirubin < 0.1, Aspartate Amino Transf (AST/SGOT) 47H, Alanine Aminotransferase (ALT/SGPT) 65, Alkaline Phosphatase 65, Total Protein 6.5, Albumin 3.1L, Albumin/Globulin Ratio 0.9, Thyroid Stimulating Hormone (TSH) 0.434, Salicylates Level 5.2, Urine Opiates Screen NEGATIVE, Urine Methadone Screen NEGATIVE, Acetaminophen Level < 2.0L, Urine Barbiturates Screen NEGATIVE, Urine Phencyclidine Screen NEGATIVE, Urine Amphetamines Screen NEGATIVE, Urine Benzodiazepines Screen NEGATIVE, Urine Cocaine Metabolite Screen NEGATIVE, Urine Cannabinoids Screen NEGATIVE, Ethyl Alcohol Level 0.006 05/12/21 23:59: Coronavirus (COVID-19)(PCR) NEGATIVE, Influenza Type A (RT-PCR) NEGATIVE, Influenza Type B (RT-PCR) NEGATIVE, Respiratory Syncytial Virus (PCR) NEGATIVE CBC/BMP Laboratory Tests 05/12/21 16:57 Home Medications Scheduled Benztropine Mesylate (Benztropine Mesylate) 2 Mg Tablet, 2 MG PO BID Divalproex Sodium (Divalproex Sodium ER) 250 Mg Tab.er.24h, 750 MG PO QHS Paliperidone Palmitate (Invega Sustenna) 156 Mg/1 Ml Syringe, 156 MG IM QMONTH Quetiapine Fumarate (Quetiapine Fumarate) 200 Mg Tablet, 200 MG PO QHS Umeclidinium Brm/Vilanterol Tr (Anoro Ellipta 62.5-25 Mcg INH) 1 Each Blst.w.dev, 1 PUFF INH DAILY Scheduled PRN Albuterol Sulfate (Albuterol Sulfate Hfa) 8.5 Gm Hfa.aer.ad, 2 PUFF INH Q4H PRN for SOB/WHEEZING Clonazepam (Clonazepam) 0.5 Mg Tablet, 0.5 MG PO TID PRN for ANXIETY Allergies Coded Allergies: Penicillins (Verified Allergy, Severe, hives, SOB, 10/03/20) ibuprofen (Verified Allergy, Unknown, hives, 03/02/21) shellfish derived (Verified Allergy, Unknown, hives, 03/02/21) A-FIB/CHADSVASC A-FIB History Current/History of A-Fib/PAF?: No TIKA HIGGINS MD May 13, 2021 12:57
[2021-05-13] MEDS: OLANZapine ORAL DISINTEGRATING TAB 5MG PO PRN (15:35)
[2021-05-13 16:07] VITALS: BP 114/63
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
[2021-05-13] MEDS ORDERED: QUEtiapine FUMARATE 100 MG TAB PO SCH (21:00)
[2021-05-13] MEDS: traZODone 50 MG TAB PO PRN (21:52)
[2021-05-13] MEDS: DIVALPROEX 250MG *ER* TAB PO SCH (21:53)
[2021-05-14 06:13] VITALS: BP 107/64
[2021-05-14] MEDS: clonazePAM 0.5 MG TAB PO SCH ×2 (08:22→20:05)
[2021-05-14] MEDS: BENZTROPINE 1 MG TAB PO SCH ×2 (08:22→20:05)
[2021-05-14] MEDS: NICOTINE 21MG/24HR 1 EA TRANSDERMAL TD SCH (08:22)
[2021-05-14] MEDS: ALBUTEROL 90 MCG/ACT 8GM HFA INHALER INH PRN (08:24)
[2021-05-14] MEDS ORDERED: INFLUENZA QUADRIVALENT PF VACCINE 0.5ML SYRINGE IM ONE (09:00)
[2021-05-14] MEDS: OLANZapine ORAL DISINTEGRATING TAB 5MG PO PRN (09:04)
--- NOTE | 2021-05-14 10:19 | MHIPNPDOC ---
[facility] Progress Note Progress Note DATE OF SERVICE: 05/14/21 HISTORY: : Patient was admitted because of inappropriateness, sexual preoccupation and aggressive behavior, as per the staff at [facility]. However, the patient denies any of those behaviors. Patient was recently discharged from this unit. He has a history of multiple psychiatric hospitalizations. He has been compliant with his medication. On the unit, he has been calm, not showing any aggressiveness; however, speaks in pressured speech. Denies any depressed mood. However, some manic symptoms of pressured speech. Denies any psychosis. Has some mild paranoia. He has been diagnosed with schizoaffective disorder, multiple psychiatric hospitalizations. Has reported a couple of admissions in March 2021. No reported suicide attempts. Currently linked to outpatient treatment. Has been compliant with his medications. Interval note :patient is disorganized, talking to self his speech is pressured and disorganized and is disheveled. Continues to have grandiose delusions, not exhibited any sexual preoccupations. Mental status examination: Patient seen wandering near the nurses station talking to self disorganized speaking to passersby, Make poor eye contact, psychomotor activity is increased, thought process disorganized, thought content grandiose Oriented to time place and person, memory immediate remote recent are good, denies any suicidal homicidal ideas. Insight and judgment are poor. Diagnosis: Schizoaffective disorder Plan is increase his Seroquel to 400 mg at night, consider increasing his Depakote Estimated length of stay 4 to 5 days Time spent is 25 minutes. Vital Signs Vital Signs Date Time Temp Pulse Resp B/P (MAP) Pulse Ox O2 Delivery O2 Flow Rate FiO2 05/14/21 06:13 97.5 74 16 107/64 (78) Room Air 05/13/21 16:07 97 Current Medications Current Medications Medications (Trade) Dose Ordered Sig/Asim Route PRN Reason Start Time Stop Time Status Last Admin Dose Admin Acetaminophen (Tylenol Tab) 650 mg Q6HP PRN PO HEADACHE or MILD DISCOMFORT 05/12/21 20:05 Al Hydrox/Mg Hydrox/Simethicone (Mylanta) 30 ml Q4HP PRN PO HEARTBURN/INDIGESTION 05/12/21 20:05 Albuterol Sulfate (Proventil, Ventolin Hfa) 2 puff Q4HP PRN INH SHORTNESS OF BREATH 05/13/21 12:55 05/14/21 08:24 Benztropine Mesylate (Cogentin) 1 mg BID PO 05/12/21 21:00 05/14/21 08:22 Clonazepam (KlonoPIN) 0.5 mg BID PO 05/12/21 21:00 05/14/21 08:22 Divalproex Sodium (Depakote Er) 750 mg QHS PO 05/13/21 21:00 05/13/21 21:53 Home Med (Home Med List Complete!) ASDIRECTED XX 05/12/21 20:20 05/12/21 20:21 DC Magnesium Hydroxide (Milk Of Magnesia) 30 ml DAILYPRN PRN PO CONSTIPATION 05/12/21 20:05 Nicotine (Nicoderm Cq 21mg) 1 patch DAILY TD 05/13/21 09:00 05/14/21 08:22 Olanzapine (ZyPREXA ZYDIS) 5 mg Q6HP PRN PO ANXIETY/AGITATION 05/12/21 20:05 05/14/21 09:04 Quetiapine Fumarate (SEROquel) 300 mg QHS PO 05/13/21 21:00 05/14/21 10:06 DC 05/13/21 21:53 Quetiapine Fumarate (SEROquel) 400 mg QHS PO 05/14/21 21:00 UNV Trazodone HCl (Desyrel) 50 mg QHSP PRN PO INSOMNIA 05/12/21 20:05 05/13/21 21:52 Allergies Coded Allergies: Penicillins (Verified Allergy, Severe, hives, SOB, 10/03/20) ibuprofen (Verified Allergy, Unknown, hives, 03/02/21) shellfish derived (Verified Allergy, Unknown, hives, 03/02/21) WALT KENNEDY MD May 14, 2021 10:19
[2021-05-14] MEDS: DIVALPROEX 500MG *ER* TAB PO SCH (11:45)
[2021-05-14] MEDS: ACETAMINOPHEN TAB 650MG DOSE (2X325MG) PO PRN (15:23)
[2021-05-14 16:39] VITALS: BP 135/82
[2021-05-14] MEDS: QUEtiapine FUMARATE 200 MG TAB PO SCH (20:05)
[2021-05-14] MEDS: DIVALPROEX 250MG *ER* TAB PO SCH (20:05)
[2021-05-14] MEDS: traZODone 50 MG TAB PO PRN (20:07)
[2021-05-15 06:21] VITALS: BP 152/70
[2021-05-15] MEDS: clonazePAM 0.5 MG TAB PO SCH ×2 (08:29→20:12)
[2021-05-15] MEDS: BENZTROPINE 1 MG TAB PO SCH ×2 (08:29→20:11)
[2021-05-15] MEDS: NICOTINE 21MG/24HR 1 EA TRANSDERMAL TD SCH (08:30)
[2021-05-15] MEDS: DIVALPROEX 500MG *ER* TAB PO SCH (08:30)
--- NOTE | 2021-05-15 10:38 | MHIPNPDOC ---
[facility] Progress Note Progress Note DATE OF SERVICE: 05/15/21 HISTORY: : Patient was admitted because of inappropriateness, sexual preoccupation and aggressive behavior, as per the staff at [facility]. However, the patient denies any of those behaviors. Patient was recently discharged from this unit. He has a history of multiple psychiatric hospitalizations. He has been compliant with his medication. On the unit, he has been calm, not showing any aggressiveness; however, speaks in pressured speech. Denies any depressed mood. However, some manic symptoms of pressured speech. Denies any psychosis. Has some mild paranoia. He has been diagnosed with schizoaffective disorder, multiple psychiatric hospitalizations. Has reported a couple of admissions in March 2021. No reported suicide attempts. Currently linked to outpatient treatment. Has been compliant with his medications. Interval note :patient is disorganized, talking to self his speech is pressured and disorganized and is disheveled. Continues to have grandiose delusions, not exhibited any sexual preoccupations. After increasing his Depakote and Seroquel patient seems to be doing little better, less pressured speech Less intrusive. Mental status examination: Patient seen wandering near the nurses station talking to self disorganized speaking to passersby, Make poor eye contact, psychomotor activity is increased, thought process disorganized, thought content grandiose Oriented to time place and person, memory immediate remote recent are good, denies any suicidal homicidal ideas. Insight and judgment are poor. Diagnosis: Schizoaffective disorder Plan is increase his Seroquel to 400 mg at night, consider increasing his Depakote Estimated length of stay 4 to 5 days Time spent is 25 minutes. Vital Signs Vital Signs Date Time Temp Pulse Resp B/P (MAP) Pulse Ox O2 Delivery O2 Flow Rate FiO2 05/15/21 06:21 98.6 72 20 152/70 (97) 95 Room Air Current Medications Current Medications Medications (Trade) Dose Ordered Sig/Asim Route PRN Reason Start Time Stop Time Status Last Admin Dose Admin Acetaminophen (Tylenol Tab) 650 mg Q6HP PRN PO HEADACHE or MILD DISCOMFORT 05/12/21 20:05 05/14/21 15:23 Al Hydrox/Mg Hydrox/Simethicone (Mylanta) 30 ml Q4HP PRN PO HEARTBURN/INDIGESTION 05/12/21 20:05 05/14/21 14:16 Albuterol Sulfate (Proventil, Ventolin Hfa) 2 puff Q4HP PRN INH SHORTNESS OF BREATH 05/13/21 12:55 05/14/21 08:24 Benztropine Mesylate (Cogentin) 1 mg BID PO 05/12/21 21:00 05/15/21 08:29 Clonazepam (KlonoPIN) 0.5 mg BID PO 05/12/21 21:00 05/15/21 08:29 Divalproex Sodium (Depakote Er) 500 mg QAM PO 05/14/21 09:00 05/15/21 08:30 Divalproex Sodium (Depakote Er) 750 mg QHS PO 05/13/21 21:00 05/14/21 20:05 Home Med (Home Med List Complete!) ASDIRECTED XX 05/12/21 20:20 05/12/21 20:21 DC Magnesium Hydroxide (Milk Of Magnesia) 30 ml DAILYPRN PRN PO CONSTIPATION 05/12/21 20:05 Nicotine (Nicoderm Cq 21mg) 1 patch DAILY TD 05/13/21 09:00 05/15/21 08:30 Olanzapine (ZyPREXA ZYDIS) 5 mg Q6HP PRN PO ANXIETY/AGITATION 05/12/21 20:05 05/14/21 09:04 Quetiapine Fumarate (SEROquel) 300 mg QHS PO 05/13/21 21:00 05/14/21 10:06 DC 05/13/21 21:53 Quetiapine Fumarate (SEROquel) 400 mg QHS PO 05/14/21 21:00 05/14/21 20:05 Trazodone HCl (Desyrel) 50 mg QHSP PRN PO INSOMNIA 05/12/21 20:05 05/14/21 20:07 Allergies Coded Allergies: Penicillins (Verified Allergy, Severe, hives, SOB, 10/03/20) ibuprofen (Verified Allergy, Unknown, hives, 03/02/21) shellfish derived (Verified Allergy, Unknown, hives, 03/02/21) WALT KENNEDY MD May 15, 2021 10:38
[2021-05-15] MEDS: OLANZapine ORAL DISINTEGRATING TAB 5MG PO PRN (13:55)
[2021-05-15] MEDS: ALBUTEROL 90 MCG/ACT 8GM HFA INHALER INH PRN (16:29)
[2021-05-15] MEDS: ACETAMINOPHEN TAB 650MG DOSE (2X325MG) PO PRN (16:29)
[2021-05-15 17:12] VITALS: BP 135/90
[2021-05-15] MEDS: DIVALPROEX 250MG *ER* TAB PO SCH (20:12)
[2021-05-15] MEDS: QUEtiapine FUMARATE 200 MG TAB PO SCH (20:12)
[2021-05-16 07:03] VITALS: BP 121/57
[2021-05-16] MEDS: DIVALPROEX 500MG *ER* TAB PO SCH (08:15)
[2021-05-16] MEDS: clonazePAM 0.5 MG TAB PO SCH ×2 (08:15→20:28)
[2021-05-16] MEDS: NICOTINE 21MG/24HR 1 EA TRANSDERMAL TD SCH (08:15)
[2021-05-16] MEDS: BENZTROPINE 1 MG TAB PO SCH ×2 (08:15→20:28)
--- NOTE | 2021-05-16 12:49 | MHIPNPDOC ---
[facility] Progress Note Progress Note DATE OF SERVICE: 05/16/21 HISTORY: Patient is familiar to this facility and was recently admitted and discharged 03/29/21-04/24/21. Shreya Ramesh called and stated pt is AOT, and she was issuing a 960 machine pecan picker order on this pt who resides at residential [facility] home. Per Shreya, pt at time of DC from [facility], 2 weeks ago, was not given a script for clozapine, and has been decompensating for the past 2 weeks, threatening staff, being sexually inappropriately, "not at his baseline." According to TLS (AOT) was brought in on a 9.60 due to decompensation for the past two weeks to include sexually inappropriate behavior, aggressive behaviors with staff, and making homicidal threats. VITAL SIGNS: See below. CURRENT MEDICATIONS: See below. MENTAL STATUS EXAMINATION: Patient is a 46-year old Single, Disabled and Domiciled male, who is tangential and delusional but pleasantly delusional and circumstantial Speech: Is spontaneous, tangential, hyperverbal and circumstantial Language skills are intact Thought processes including: flight of ideas (mild) Thought content: Denies depressed and anxiety, denies suicidal or homicidal ideation. Abstract reasoning, and computation: fair. Description of associations: delusional but mild Description of abnormal or psychotic thoughts: mild delusional thinking, Grandiose Judgment: poor Insight:poor Orientation: A + O x 3 Recent and remote memory: Intact Attention span and concentration: Average Language: Expansive Fund of knowledge: Average Mood: "I feel great" Affect: Euthymic DIAGNOSES: 1. Schizoaffective Disorder, Bipolar type ASSESSMENT: Patient is hyperverbal and tangential. He is grandiose in his interview and appears to be pleasant grandiose and delusional. States "I am registered at [facility] [employer] because I have a deadly fists. 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 He does appear to have some delusional statements none seem to be threatening to himself or others currently, but this changes throughout the day. Patient exhibits continued delusional statements that show poor insight and judgment. MANAGEMENT PLAN: Continue all medications and supportive therapy. Possible dis charge back to [facility] at the end of the week TIME SPENT: 20 minutes. Vital Signs Vital Signs Date Time Temp Pulse Resp B/P (MAP) Pulse Ox O2 Delivery O2 Flow Rate FiO2 05/16/21 07:03 98.8 69 20 121/57 (78) 95 Room Air Current Medications Current Medications Medications (Trade) Dose Ordered Sig/Asim Route PRN Reason Start Time Stop Time Status Last Admin Dose Admin Acetaminophen (Tylenol Tab) 650 mg Q6HP PRN PO HEADACHE or MILD DISCOMFORT 05/12/21 20:05 05/15/21 16:29 Al Hydrox/Mg Hydrox/Simethicone (Mylanta) 30 ml Q4HP PRN PO HEARTBURN/INDIGESTION 05/12/21 20:05 05/14/21 14:16 Albuterol Sulfate (Proventil, Ventolin Hfa) 2 puff Q4HP PRN INH SHORTNESS OF BREATH 05/13/21 12:55 05/15/21 16:29 Benztropine Mesylate (Cogentin) 1 mg BID PO 05/12/21 21:00 05/16/21 08:15 Clonazepam (KlonoPIN) 0.5 mg BID PO 05/12/21 21:00 05/16/21 08:15 Divalproex Sodium (Depakote Er) 500 mg QAM PO 05/14/21 09:00 05/16/21 08:15 Divalproex Sodium (Depakote Er) 750 mg QHS PO 05/13/21 21:00 05/15/21 20:12 Home Med (Home Med List Complete!) ASDIRECTED XX 05/12/21 20:20 05/12/21 20:21 DC Magnesium Hydroxide (Milk Of Magnesia) 30 ml DAILYPRN PRN PO CONSTIPATION 05/12/21 20:05 Nicotine (Nicoderm Cq 21mg) 1 patch DAILY TD 05/13/21 09:00 05/16/21 08:15 Olanzapine (ZyPREXA ZYDIS) 5 mg Q6HP PRN PO ANXIETY/AGITATION 05/12/21 20:05 05/15/21 13:55 Quetiapine Fumarate (SEROquel) 300 mg QHS PO 05/13/21 21:00 05/14/21 10:06 DC 05/13/21 21:53 Quetiapine Fumarate (SEROquel) 400 mg QHS PO 05/14/21 21:00 05/14/21 20:05 Trazodone HCl (Desyrel) 50 mg QHSP PRN PO INSOMNIA 05/12/21 20:05 05/14/21 20:07 Allergies Coded Allergies: Penicillins (Verified Allergy, Severe, hives, SOB, 10/03/20) ibuprofen (Verified Allergy, Unknown, hives, 03/02/21) shellfish derived (Verified Allergy, Unknown, hives, 03/02/21) TAYO BARAJAS NP May 16, 2021 09:34
[2021-05-16] MEDS: ACETAMINOPHEN TAB 650MG DOSE (2X325MG) PO PRN (15:47)
[2021-05-16 17:59] VITALS: BP 135/80
[2021-05-16] MEDS: DIVALPROEX 250MG *ER* TAB PO SCH (20:28)
[2021-05-16] MEDS: QUEtiapine FUMARATE 200 MG TAB PO SCH (20:29)
[2021-05-17 06:48] VITALS: BP 156/69
[2021-05-17] MEDS: BENZTROPINE 1 MG TAB PO SCH ×2 (08:50→21:05)
[2021-05-17] MEDS: NICOTINE 21MG/24HR 1 EA TRANSDERMAL TD SCH (08:50)
[2021-05-17] MEDS: clonazePAM 0.5 MG TAB PO SCH ×2 (08:50→21:04)
[2021-05-17] MEDS: DIVALPROEX 500MG *ER* TAB PO SCH (08:50)
[2021-05-17] MEDS: OLANZapine ORAL DISINTEGRATING TAB 5MG PO PRN (09:59)
[2021-05-17] MEDS: ACETAMINOPHEN TAB 650MG DOSE (2X325MG) PO PRN (11:01)
[2021-05-17] MEDS: QUEtiapine FUMARATE 200 MG TAB PO SCH (21:04)
[2021-05-17] MEDS: DIVALPROEX 250MG *ER* TAB PO SCH (21:04)
[2021-05-18 06:12] VITALS: BP 132/77
[2021-05-18] MEDS: ACETAMINOPHEN TAB 650MG DOSE (2X325MG) PO PRN ×2 (06:45→15:58)
[2021-05-18] MEDS: DIVALPROEX 500MG *ER* TAB PO SCH (08:16)
[2021-05-18] MEDS: BENZTROPINE 1 MG TAB PO SCH ×2 (08:16→20:07)
[2021-05-18] MEDS: clonazePAM 0.5 MG TAB PO SCH ×2 (08:16→20:07)
[2021-05-18] MEDS: NICOTINE 21MG/24HR 1 EA TRANSDERMAL TD SCH (08:18)
--- NOTE | 2021-05-18 09:34 | MHIPNPDOC ---
[facility] Progress Note Progress Note DATE OF SERVICE: 05/18/21 HISTORY: Patient is familiar to this facility and was recently admitted and discharged 03/29/21-04/24/21. Shreya Ramesh called and stated pt is AOT, and she was issuing a 960 slat pickler order on this pt who resides at residential [facility] home. Per Shreya, pt at time of DC from [facility], 2 weeks ago, was not given a script for clozapine, and has been decompensating for the past 2 weeks, threatening staff, being sexually inappropriately, "not at his baseline." According to TLS (AOT) was brought in on a 9.60 due to decompensation for the past two weeks to include sexually inappropriate behavior, aggressive behaviors with staff, and making homicidal threats. VITAL SIGNS: See below. CURRENT MEDICATIONS: See below. MENTAL STATUS EXAMINATION: Patient is a 46-year old Single, Disabled and Domiciled male, who is tangential and delusional but pleasantly delusional and circumstantial Speech: Is spontaneous, tangential, hyperverbal and circumstantial Language skills are intact Thought processes including: flight of ideas (mild) Thought content: Denies depressed and anxiety, denies suicidal or homicidal ideation. Abstract reasoning, and computation: fair. Description of associations: delusional but mild Description of abnormal or psychotic thoughts: mild delusional thinking, Grandiose, Patient thinks that he owns the hospital Judgment: improving Insight:improving Orientation: A + O x 3 Recent and remote memory: Intact Attention span and concentration: Average Language: Expansive Fund of knowledge: Average Mood: "I feel unique" Affect: Euthymic DIAGNOSES: 1. Schizoaffective Disorder, Bipolar type ASSESSMENT: Patient is hyperverbal and tangential. He is grandiose in his interview, patient was pleasantly delusional and stated, "Father owns the hospital, and the reason he is here is because he had a seizure." Patient also referenced that he was "in the " and does not like "racial bigotry". Patient also stated that he is "confucianist and does not talk like that, you talk like that and you go to hell." Patient denies any SI/HI. Patient is out in the milieu, hyperverbal in the hallways but non threatening. Patient reports he attends group, per staff he is participating and engaged. At this current writing patient made no sexually inappropriate statements, has not demonstrated any aggressive behaviors with staff, or made any homicidal threats. Patient appears to be at his baseline and is stable for discharge. MANAGEMENT PLAN: Continue all medications and supportive therapy. Discharge to [facility] tomorrow . TIME SPENT: 20 minutes. Vital Signs Vital Signs Date Time Temp Pulse Resp B/P (MAP) Pulse Ox O2 Delivery O2 Flow Rate FiO2 05/18/21 06:12 97.8 71 18 132/77 (95) 96 Room Air Current Medications Current Medications Medications (Trade) Dose Ordered Sig/Asim Route PRN Reason Start Time Stop Time Status Last Admin Dose Admin Acetaminophen (Tylenol Tab) 650 mg Q6HP PRN PO HEADACHE or MILD DISCOMFORT 05/12/21 20:05 05/18/21 06:45 Al Hydrox/Mg Hydrox/Simethicone (Mylanta) 30 ml Q4HP PRN PO HEARTBURN/INDIGESTION 05/12/21 20:05 05/14/21 14:16 Albuterol Sulfate (Proventil, Ventolin Hfa) 2 puff Q4HP PRN INH SHORTNESS OF BREATH 05/13/21 12:55 05/15/21 16:29 Benztropine Mesylate (Cogentin) 1 mg BID PO 05/12/21 21:00 05/18/21 08:16 Clonazepam (KlonoPIN) 0.5 mg BID PO 05/12/21 21:00 05/18/21 08:16 Divalproex Sodium (Depakote Er) 500 mg QAM PO 05/14/21 09:00 05/18/21 08:16 Divalproex Sodium (Depakote Er) 750 mg QHS PO 05/13/21 21:00 05/17/21 21:04 Home Med (Home Med List Complete!) ASDIRECTED XX 05/12/21 20:20 05/12/21 20:21 DC Magnesium Hydroxide (Milk Of Magnesia) 30 ml DAILYPRN PRN PO CONSTIPATION 05/12/21 20:05 Miscellaneous (Unresolved Clarification Entry) SEE LABEL COMMENTS DAILY XX 05/17/21 09:00 Cancel Nicotine (Nicoderm Cq 21mg) 1 patch DAILY TD 05/13/21 09:00 05/17/21 08:50 Olanzapine (ZyPREXA ZYDIS) 5 mg Q6HP PRN PO ANXIETY/AGITATION 05/12/21 20:05 05/17/21 09:59 Quetiapine Fumarate (SEROquel) 300 mg QHS PO 05/13/21 21:00 05/14/21 10:06 DC 05/13/21 21:53 Quetiapine Fumarate (SEROquel) 400 mg QHS PO 05/14/21 21:00 05/17/21 21:04 Trazodone HCl (Desyrel) 50 mg QHSP PRN PO INSOMNIA 05/12/21 20:05 05/14/21 20:07 Allergies Coded Allergies: Penicillins (Verified Allergy, Severe, hives, SOB, 10/03/20) ibuprofen (Verified Allergy, Unknown, hives, 03/02/21) shellfish derived (Verified Allergy, Unknown, hives, 03/02/21) TAYO BARAJAS NP May 18, 2021 09:34
--- NOTE | 2021-05-18 09:45 | MHIPNPDOC ---
[facility] Progress Note Progress Note DATE OF SERVICE: 05/17/21 HISTORY: Patient is familiar to this facility and was recently admitted and discharged 03/29/21-04/24/21. Shreya Ramesh called and stated pt is AOT, and she was issuing a 960 cotton picker order on this pt who resides at residential [facility] home. Per Shreya, pt at time of DC from [facility], 2 weeks ago, was not given a script for clozapine, and has been decompensating for the past 2 weeks, threatening staff, being sexually inappropriately, "not at his baseline." According to [facility] (AOT) was brought in on a 9.60 due to decompensation for the past two weeks to include sexually inappropriate behavior, aggressive behaviors with staff, and making homicidal threats. VITAL SIGNS: See below. CURRENT MEDICATIONS: See below. MENTAL STATUS EXAMINATION: Patient is a 46-year old Single, Disabled and Domiciled male, who is tangential and delusional but pleasantly delusional and circumstantial Speech: Is spontaneous, tangential, hyperverbal and circumstantial Language skills are intact Thought processes including: flight of ideas (mild) Thought content: Denies depressed and anxiety, denies suicidal or homicidal ideation. Abstract reasoning, and computation: fair. Description of associations: delusional but mild Description of abnormal or psychotic thoughts: mild delusional thinking, Grandiose Judgment: improving Insight:improving Orientation: A + O x 3 Recent and remote memory: Intact Attention span and concentration: Average Language: Expansive Fund of knowledge: Average Mood: "I feel good" Affect: Euthymic DIAGNOSES: 1. Schizoaffective Disorder, Bipolar type ASSESSMENT: Patient is hyperverbal and tangential. He is grandiose in his interview and appears to be pleasant grandiose and delusional. Patient ruminated about his son states, "will not take his Seroquel because my son that way." Further he states" you're not suppose to take 4 Seroquel, it will kill you." We discussed sons history, patient admitted he has a substance use hx. Patient stated "I'm not sure Seroquel was the reason he passed." Reinforced that the patient needs to take his medications as order as this is imperative he follows treatment planning. Patient wants to return to [facility] and states that he "feels better" and he is no longer "angry at [facility]". MANAGEMENT PLAN: Continue all medications and supportive therapy. Possible di scharge back to [facility] at the end of the week TIME SPENT: 20 minutes. Vital Signs Vital Signs Date Time Temp Pulse Resp B/P (MAP) Pulse Ox O2 Delivery O2 Flow Rate FiO2 05/18/21 06:12 97.8 71 18 132/77 (95) 96 Room Air Current Medications Current Medications Medications (Trade) Dose Ordered Sig/Asim Route PRN Reason Start Time Stop Time Status Last Admin Dose Admin Acetaminophen (Tylenol Tab) 650 mg Q6HP PRN PO HEADACHE or MILD DISCOMFORT 05/12/21 20:05 05/18/21 06:45 Al Hydrox/Mg Hydrox/Simethicone (Mylanta) 30 ml Q4HP PRN PO HEARTBURN/INDIGESTION 05/12/21 20:05 05/14/21 14:16 Albuterol Sulfate (Proventil, Ventolin Hfa) 2 puff Q4HP PRN INH SHORTNESS OF BREATH 05/13/21 12:55 05/15/21 16:29 Benztropine Mesylate (Cogentin) 1 mg BID PO 05/12/21 21:00 05/18/21 08:16 Clonazepam (KlonoPIN) 0.5 mg BID PO 05/12/21 21:00 05/18/21 08:16 Divalproex Sodium (Depakote Er) 500 mg QAM PO 05/14/21 09:00 05/18/21 08:16 Divalproex Sodium (Depakote Er) 750 mg QHS PO 05/13/21 21:00 05/17/21 21:04 Home Med (Home Med List Complete!) ASDIRECTED XX 05/12/21 20:20 05/12/21 20:21 DC Magnesium Hydroxide (Milk Of Magnesia) 30 ml DAILYPRN PRN PO CONSTIPATION 05/12/21 20:05 Miscellaneous (Unresolved Clarification Entry) SEE LABEL COMMENTS DAILY XX 05/17/21 09:00 Cancel Nicotine (Nicoderm Cq 21mg) 1 patch DAILY TD 05/13/21 09:00 05/17/21 08:50 Olanzapine (ZyPREXA ZYDIS) 5 mg Q6HP PRN PO ANXIETY/AGITATION 05/12/21 20:05 05/17/21 09:59 Quetiapine Fumarate (SEROquel) 300 mg QHS PO 05/13/21 21:00 05/14/21 10:06 DC 05/13/21 21:53 Quetiapine Fumarate (SEROquel) 400 mg QHS PO 05/14/21 21:00 05/17/21 21:04 Trazodone HCl (Desyrel) 50 mg QHSP PRN PO INSOMNIA 05/12/21 20:05 05/14/21 20:07 Allergies Coded Allergies: Penicillins (Verified Allergy, Severe, hives, SOB, 10/03/20) ibuprofen (Verified Allergy, Unknown, hives, 03/02/21) shellfish derived (Verified Allergy, Unknown, hives, 03/02/21) TAYO BARAJAS NP May 18, 2021 09:45
[2021-05-18] MEDS: OLANZapine ORAL DISINTEGRATING TAB 5MG PO PRN (10:57)
[2021-05-18] MEDS: ALBUTEROL 90 MCG/ACT 8GM HFA INHALER INH PRN ×2 (10:57→16:51)
[2021-05-18] MEDS ORDERED: DEPA500T2 PO (14:57)
[2021-05-18] MEDS ORDERED: DEPA250T2 PO (14:57)
[2021-05-18] MEDS ORDERED: QUET400T2 PO (14:57)
[2021-05-18] MEDS ORDERED: NICO21PAT TD (14:57)
[2021-05-18] MEDS ORDERED: BENZ2TAB5 PO (14:57)
[2021-05-18] MEDS ORDERED: CLON0.5T2 PO (14:57)
[2021-05-18 17:43] VITALS: BP 144/70
[2021-05-18] MEDS: QUEtiapine FUMARATE 200 MG TAB PO SCH (20:07)
[2021-05-18] MEDS: DIVALPROEX 250MG *ER* TAB PO SCH (20:08)
[2021-05-19 06:37] VITALS: BP 112/82
[2021-05-19] MEDS: clonazePAM 0.5 MG TAB PO SCH (08:31)
[2021-05-19] MEDS: BENZTROPINE 1 MG TAB PO SCH (08:31)
[2021-05-19] MEDS: DIVALPROEX 500MG *ER* TAB PO SCH (08:31)
[2021-05-19] MEDS: NICOTINE 21MG/24HR 1 EA TRANSDERMAL TD SCH (08:32)
--- NOTE | 2021-05-19 09:48 | MHDSPDOC ---
[facility] Discharge Summary Discharge Summary DATE OF ADMISSION: May 12, 2021 at 20:02 DATE OF DISCHARGE: May 19, 2021 at 0940 DISCHARGE DIAGNOSES: 1. Schizoaffective Disorder, Bipolar type REASON FOR ADMISSION: Patient is familiar to this facility and was recently admitted and discharged 03/29/21-04/24/21. Shreya Ramesh called and stated pt is AOT, and she was issuing a 960 filler picker order on this pt who resides at residential [facility] home. Per Shreya, pt at time of DC from [facility], 2 weeks ago, was not given a script for clozapine, and has been decompensating for the past 2 weeks, threatening staff, being sexually inappropriately, "not at his baseline." According to [facility] (AOT) was brought in on a 9.60 due to decompensation for the past two weeks to include sexually inappropriate behavior, aggressive behaviors with staff, and making homicidal threats. CONSULTANTS INVOLVED: See Medical H + P by Hospitalist TREATMENT AND PROGRESS ON THE UNIT: Patient was admitted to the [facility] on a 9.39 legal status was afforded the following treatment modalities: 1) Individual Therapy 2) Group Therapy 3) Medication Management 4) Milieu Therapy 5) Safe Environment HOSPITAL COURSE: Patient was admitted to [facility] on a 9.39 legal status. He refused medications, he was resumed on his medications. Patient's medications were titrated to therapeutic levels. He was compliant with medications and other treatment modalities. He was initially inappropriate with sexual comments, but that has diminishes and he did not have any aggressive behaviors in several days. Patient was in the milieu, social with peers and attended groups. Patient is normally tangential and hyperverbal at baseline. Patient is quite familiar to this [facility] hospital and at this time, staff and treatment team feel that patient is stable and appropriate for discharge. He ruminates about the location of his [facility] housing today, reinforced that he can accept any housing and should be agreeable to it. He states that he worries about his being in trouble if he does not let the authorities know where he is moving to. DISCHARGE ASSESSMENT:In today's interview, patient is alert and oriented, pt.s dress is appropriate. Hygiene and grooming is well-kempt. Smiles on approach and is pleasant and engaged in the interview. Denies depression and anxiety. Denies suicidal and homicidal ideation, planning or intent. Denies and is not observed with ubaldo, psychotic symptoms of delusions, bizarre thinking, obsessions, paranoia, ruminations illogical thoughts, flight of ideas or having poor insight and judgement. Reinforced with patient need to abstain from alcohol and drugs. At discharge patient has normal mentation, declines further hospitalization on a voluntary status and meets criteria for discharge today. MENTAL STATUS EXAMINATION ON DISCHARGE: Patient is a 46-year old Single, Disabled and Domiciled male, who is tangential and delusional but pleasantly delusional and circumstantial Speech: Is spontaneous, tangential, hyperverbal and circumstantial Language skills are intact Thought processes including: flight of ideas (mild) Thought content: Denies depressed and anxiety, denies suicidal or homicidal ideation. Abstract reasoning, and computation: fair. Description of associations: delusional but mild Description of abnormal or psychotic thoughts: mild delusional thinking, Grandiose Judgment: improving Insight:improving Orientation: A + O x 3 Recent and remote memory: Intact Attention span and concentration: Average Language: Expansive Fund of knowledge: Average Mood: "I feel good" Affect: Euthymic Suicide Risk Assessment: 1) Does the patient wish to be ? No 2) Since your admission, have you had any actual thought of killing yourself? No 3) Since your admission, have you been thinking about how you might do this? No 4) Since your admission, have you had these thoughts and had some intention of acting on them? No 5) Since your admission, have you started to work out or worked out the details of how to kill yourself? No 5A) Do you intent to carry out this plan? No and NA 6) Have you ever done anything, started anything, or prepared to do anything with any intent to ? No 6A) How long since your admission did you do any of these? NA MEDICATIONS ON DISCHARGE: See Medication Reconciliation. PLAN/FOLLOWUP ARRANGEMENTS: [facility] The amount of time spent in the coordination of care for this patient was approximately 25 minutes. ETOH/Disorder Med Rx ETOH/DRUG DISORDER RX: N/A Vital Signs/I&Os Vital Signs Date Time Temp Pulse Resp B/P (MAP) Pulse Ox O2 Delivery O2 Flow Rate FiO2 05/19/21 06:37 97.5 95 18 112/82 (92) 97 Room Air Medications Scheduled Benztropine Mesylate (Benztropine Mesylate) 2 Mg Tablet, 2 MG PO BID for EPS, #14 Clonazepam (Clonazepam) 0.5 Mg Tablet, 0.5 MG PO BID for anxiety, #14 Divalproex Sodium (Depakote ER) 500 Mg Tab.er.24h, 500 MG PO QAM for Mood for 7 Days, #7 Divalproex Sodium (Depakote ER) 250 Mg Tab.er.24h, 750 MG PO QHS for Mood for 7 Days, #21 Nicotine (Nicotine Patch) 21 Mg Patch.td24, 1 PATCH TD DAILY for Nicotine Withdrawal for 7 Days, #7 Paliperidone Palmitate (Invega Sustenna) 156 Mg/1 Ml Syringe, 156 MG IM QMONTH, (Reported) Quetiapine Fumarate (Quetiapine Fumarate) 400 Mg Tablet, 400 MG PO QHS for Mood for 7 Days, #7 Umeclidinium Brm/Vilanterol Tr (Anoro Ellipta 62.5-25 Mcg INH) 1 Each Blst.w.dev, 1 PUFF INH DAILY, (Reported) Scheduled PRN Albuterol Sulfate (Albuterol Sulfate Hfa) 8.5 Gm Hfa.aer.ad, 2 PUFF INH Q4H PRN for SOB/WHEEZING, (Reported) Allergies Coded Allergies: Penicillins (Verified Allergy, Severe, hives, SOB, 10/03/20) ibuprofen (Verified Allergy, Unknown, hives, 03/02/21) shellfish derived (Verified Allergy, Unknown, hives, 03/02/21) TAYO BARAJAS NP May 19, 2021 09:48
== END 2021-05-19 13:00 | disposition home or self-care (01) | DRG 885 ==
LOC: M ED 14:08 → M ED INP 20:02 → M PSY 05-13 01:22
PROVIDERS: ADMIT Psychiatry & Neurology Psychiatry; ATTEND Psychiatry & Neurology Psychiatry
DX: F25.0 Schizoaffective disorder, bipolar type (principal); F17.210 Nicotine dependence, cigarettes, uncomplicated; Z20.822 Contact with and (suspected) exposure to COVID-19; Z79.899 Other long term (current) drug therapy; Z88.0 Allergy status to penicillin; Z88.6 Allergy status to analgesic agent; Z91.013 Allergy to seafood; Z63.8 Other specified problems related to primary support group

== ENCOUNTER 2021-05-26 23:07 | Emergency (ER) | payer MEDICARE, MEDICAID ==
[~2021-05-26] VITALS: Ht 175.3 cm; Wt 87.3 kg
[2021-05-26 23:07] VITALS: BP 122/76
[~2021-05-26 23:07] MED LIST changes: +NICO21PAT TD; +QUET400T2 PO
== END 2021-05-27 03:03 | disposition left against medical advice (07) ==
LOC: M ED 23:07
DX: Z53.21 Procedure and treatment not carried out due to patient leaving prior to being seen by health care provider (principal)

== ENCOUNTER 2021-09-04 20:21 | Emergency (ER) | payer MEDICARE, MEDICAID ==
[~2021-09-04] VITALS: Ht 175.3 cm; Wt 87.3 kg
[2021-09-04 20:21] VITALS: BP 167/87
== END 2021-09-04 20:55 | disposition left against medical advice (07) ==
LOC: M ED 20:21
DX: Z53.29 Procedure and treatment not carried out because of patient's decision for other reasons (principal)

== ENCOUNTER 2021-09-09 03:10 | Emergency (ER) | payer MEDICARE, MEDICAID ==
[2021-09-09 03:11] VITALS: BP 143/67
== END 2021-09-09 04:08 | disposition left against medical advice (07) ==
LOC: M ED 03:10
DX: Z53.29 Procedure and treatment not carried out because of patient's decision for other reasons (principal)

== ENCOUNTER 2021-09-13 20:24 | Emergency (ER) | payer MEDICARE, MEDICAID ==
[~2021-09-13] VITALS: Ht 175.3 cm; Wt 87.3 kg
[2021-09-13 20:26] VITALS: BP 171/98
== END 2021-09-13 21:00 | disposition left against medical advice (07) ==
LOC: M ED 20:24
DX: Z53.29 Procedure and treatment not carried out because of patient's decision for other reasons (principal)

== ENCOUNTER 2021-09-30 16:46 | Emergency (ER) | payer MEDICARE, MEDICAID ==
[~2021-09-30] VITALS: Ht 175.3 cm; Wt 87.3 kg
[2021-09-30 16:50] VITALS: BP 126/73
== END 2021-09-30 18:05 | disposition left against medical advice (07) ==
LOC: EDBD 16:46 → M ED 16:46
DX: Z53.29 Procedure and treatment not carried out because of patient's decision for other reasons (principal)

== ENCOUNTER 2021-10-13 01:38 | Emergency (ER) | payer MEDICARE, MEDICAID ==
[~2021-10-13] VITALS: Ht 175.3 cm; Wt 87.3 kg
[2021-10-13 01:44] VITALS: BP 122/77
== END 2021-10-13 02:40 | disposition left against medical advice (07) ==
LOC: M ED 01:38
DX: Z53.29 Procedure and treatment not carried out because of patient's decision for other reasons (principal)

== ENCOUNTER 2021-10-15 17:04 | Emergency (ER) | payer MEDICARE, MEDICAID ==
[~2021-10-15] VITALS: Ht 175.3 cm; Wt 87.3 kg
[2021-10-15 17:17] VITALS: BP 177/104
[2021-10-15] MEDS ORDERED: ACET-897 PO (19:43)
[2021-10-15] MEDS ORDERED: ACETAMINOPHEN 500 MG TAB PO ONE (19:45)
== END 2021-10-15 19:53 | disposition home or self-care (01) ==
LOC: M ED 17:04 → EDBD 17:04 → M ED 19:53
DX: M54.50 Low back pain, unspecified (principal); I10 Essential (primary) hypertension; J45.909 Unspecified asthma, uncomplicated; E78.5 Hyperlipidemia, unspecified; F31.9 Bipolar disorder, unspecified; F90.9 Attention-deficit hyperactivity disorder, unspecified type; I25.2 Old myocardial infarction; R56.9 Unspecified convulsions; Z88.0 Allergy status to penicillin; Z88.8 Allergy status to other drugs, medicaments and biological substances; Z91.018 Allergy to other foods; Z79.899 Other long term (current) drug therapy; F17.210 Nicotine dependence, cigarettes, uncomplicated

== ENCOUNTER 2021-10-16 03:15 | Emergency (ER) | payer MEDICARE, MEDICAID ==
[~2021-10-16] VITALS: Ht 175.3 cm; Wt 92.9 kg
[~2021-10-16 03:15] MED LIST changes: +ACET-897 PO
[2021-10-16 03:17] VITALS: BP 142/82
== END 2021-10-16 03:59 | disposition left against medical advice (07) ==
LOC: M ED 03:15
DX: Z53.29 Procedure and treatment not carried out because of patient's decision for other reasons (principal)

== ENCOUNTER 2021-10-20 10:28 | Emergency (ER) | payer MEDICARE, MEDICAID ==
[~2021-10-20] VITALS: Ht 175.3 cm; Wt 96.3 kg
[2021-10-20 10:28] VITALS: BP 136/76
== END 2021-10-20 10:34 | disposition left against medical advice (07) ==
LOC: M ED 10:28
DX: Z53.21 Procedure and treatment not carried out due to patient leaving prior to being seen by health care provider (principal)

== ENCOUNTER 2021-10-22 20:37 | Emergency (ER) | payer MEDICARE, MEDICAID | END 2021-10-22 21:16 | disposition left against medical advice (07) | LOC: M ED 20:37 | DX: Z53.29 Procedure and treatment not carried out because of patient's decision for other reasons (principal) ==

== ENCOUNTER → 2021-11-03 | Outpatient (CLI) | payer MEDICARE, MEDICAID | LOC: M RAD 09:13 | PROVIDERS: ATTEND Pediatrics | DX: R74.01 Elevation of levels of liver transaminase levels (principal) ==

== ENCOUNTER 2021-11-07 03:37 | Emergency (ER) | payer MEDICARE, MEDICAID ==
[~2021-11-07] VITALS: Ht 175.3 cm; Wt 90.2 kg
[2021-11-07 03:50] VITALS: BP 138/98
== END 2021-11-07 04:32 | disposition left against medical advice (07) ==
LOC: M ED 03:37
DX: Z53.29 Procedure and treatment not carried out because of patient's decision for other reasons (principal)

== ENCOUNTER 2021-11-14 09:46 | Inpatient (IN) | payer MEDICARE, MEDICAID ==
[~2021-11-14] VITALS: Ht 175.3 cm; Wt 85.6 kg
[2021-11-14 10:40] LABS: HEMATOCRIT 43.6 % (42.0-52.0); HEMOGLOBIN 14.4 g/dl (13.5-17.5); MEAN CORPUSCULAR HEMOGLOBIN 30.9 pg (27.0-33.0); MEAN CORPUSCULAR VOLUME 93.6 fl (80.0-96.0); PLATELET COUNT, AUTOMATED 265 10^3/uL (150-450); RED BLOOD COUNT 4.66 10^6/uL (4.30-6.10); WHITE BLOOD COUNT 8.7 10^3/uL (4.0-10.0)
[2021-11-14] MEDS ORDERED: LORazepam 2 MG TAB PO STA (11:09)
[2021-11-14] MEDS ORDERED: OLANZapine ORAL DISINTEGRATING TAB 5MG PO ONE (11:10)
[2021-11-14 11:16] LABS: RSV AMPLIFICATION NEGATIVE (NEGATIVE)
[2021-11-14 11:17] LABS: AMPHETAMINES LEVEL URINE POSITIVE (NEGATIVE); BARBITURATES URINE NEGATIVE (NEGATIVE); BENZODIAZEPINES URINE NEGATIVE (NEGATIVE); CANNABINOIDS URINE NEGATIVE (NEGATIVE); COCAINE METABOLITE URINE NEGATIVE (NEGATIVE); METHADONE URINE NEGATIVE (NEGATIVE); OPIATES URINE NEGATIVE (NEGATIVE); PHENCYCLIDINE URINE NEGATIVE (NEGATIVE)
[2021-11-14 11:32] LABS: ACETAMINOPHEN LEVEL < 2.0 UG/ML (10.0-30.0); ALBUMIN 3.3 GM/DL (3.2-5.2); ALT/SGPT 153 U/L (12-78); BILIRUBIN,DIRECT 0.2 MG/DL (0.0-0.2); BILIRUBIN,TOTAL 0.4 MG/DL (0.2-1.0); BLOOD UREA NITROGEN 11 MG/DL (7-18); CALCIUM LEVEL 8.7 MG/DL (8.5-10.1); CARBON DIOXIDE LEVEL 27 MEQ/L (21-32); CHLORIDE LEVEL 108 MEQ/L (98-107); CREATININE FOR GFR 0.66 MG/DL (0.70-1.30); ETHYL ALCOHOL (ETHANOL) < 0.003 % (0.000-0.010); GLOMERULAR FILTRATION RATE > 60.0 (>60); GLUCOSE, FASTING 85 MG/DL (70-100); POTASSIUM SERUM 4.1 MEQ/L (3.5-5.1); SALICYLATE LEVEL 3.8 MG/DL (5.0-30.0); SODIUM LEVEL 141 MEQ/L (136-145); TOTAL PROTEIN 6.4 GM/DL (6.4-8.2)
[2021-11-15] MEDS ORDERED: BENZ2TAB5 PO (07:33)
[2021-11-15] MEDS ORDERED: CLON0.5T17 PO (07:35)
[2021-11-15] MEDS ORDERED: QUET400T2 PO (07:38)
[2021-11-15] MEDS ORDERED: DEPA1TAB3 PO (07:38)
[2021-11-15] MEDS ORDERED: DEPA250T32 PO (07:38)
[2021-11-15] MEDS ORDERED: MED NOTE (07:39)
[2021-11-15] MEDS ORDERED: HOME MED LIST COMPLETE! XX SCH (07:40)
[2021-11-15] MEDS: BENZTROPINE 2 MG TAB PO SCH ×2 (09:24→21:05)
[2021-11-15] MEDS: DIVALPROEX 250 MG TAB PO SCH ×2 (09:24→20:38)
[2021-11-15] MEDS: clonazePAM 0.5 MG TAB PO SCH ×2 (09:24→20:38)
[2021-11-15] MEDS ORDERED: DIVALPROEX 250 MG TAB PO SCH (16:00)
[2021-11-15] MEDS ORDERED: QUEtiapine FUMARATE 200 MG TAB PO SCH (21:00)
[2021-11-16] MEDS: clonazePAM 0.5 MG TAB PO SCH ×2 (09:14→20:17)
[2021-11-16] MEDS: DIVALPROEX 250 MG TAB PO SCH ×3 (09:14→20:16)
[2021-11-16] MEDS: BENZTROPINE 2 MG TAB PO SCH ×2 (11:13→20:16)
[2021-11-16] MEDS ORDERED: ALBUTEROL 90 MCG/ACT 8GM HFA INHALER INH PRN (13:00)
[2021-11-16] MEDS ORDERED: MOM 30ML SUSPENSION UDC PO PRN (13:00)
[2021-11-16] MEDS ORDERED: MAALOX 30 ML SUSP *UDC PO PRN (13:00)
[2021-11-16 14:11] VITALS: BP 156/87
[2021-11-16] MEDS: TIOTROPIUM INHALER/CAPSULE (SPIRIVA) INH SCH (14:45)
[2021-11-16] MEDS: ACETAMINOPHEN TAB 650MG DOSE (2X325MG) PO PRN (15:08)
[2021-11-16] MEDS: OLANZapine ORAL DISINTEGRATING TAB 5MG PO PRN (18:25)
[2021-11-16] MEDS ORDERED: FORMOTEROL FUMARATE 20 MCG/2 ML INHALATION SOLUTION (PERFOROMIST) INH SCH (20:00)
[2021-11-16] MEDS: DIVALPROEX 500 MG TAB PO SCH (20:17)
[2021-11-17 06:18] VITALS: BP 118/70
[2021-11-17] MEDS: DIVALPROEX 500 MG TAB PO SCH (08:40)
[2021-11-17] MEDS: clonazePAM 0.5 MG TAB PO SCH ×2 (08:40→20:04)
[2021-11-17] MEDS: DIVALPROEX 250 MG TAB PO SCH ×2 (08:40→20:04)
[2021-11-17] MEDS: TIOTROPIUM INHALER/CAPSULE (SPIRIVA) INH SCH (08:41)
[2021-11-17] MEDS: BENZTROPINE 2 MG TAB PO SCH ×2 (08:41→20:04)
[2021-11-17] MEDS: NICOTINE 21MG/24HR 1 EA TRANSDERMAL TD PRN (10:12)
[2021-11-17] MEDS: SYMBICORT 160/4.5MCG INHALER 6GM INH SCH ×2 (12:05→20:04)
[2021-11-17] MEDS: ACETAMINOPHEN TAB 650MG DOSE (2X325MG) PO PRN (15:03)
[2021-11-17 19:16] VITALS: BP 138/84
[2021-11-17] MEDS: QUEtiapine FUMARATE 200 MG TAB PO SCH (20:04)
[2021-11-18] MEDS: ACETAMINOPHEN TAB 650MG DOSE (2X325MG) PO PRN ×2 (02:58→19:27)
[2021-11-18 06:58] VITALS: BP 137/87
[2021-11-18] MEDS: TIOTROPIUM INHALER/CAPSULE (SPIRIVA) INH SCH (08:41)
[2021-11-18] MEDS: BENZTROPINE 2 MG TAB PO SCH ×2 (08:43→20:31)
[2021-11-18] MEDS: DIVALPROEX 250 MG TAB PO SCH ×2 (08:43→20:30)
[2021-11-18] MEDS: clonazePAM 0.5 MG TAB PO SCH ×2 (08:43→20:30)
[2021-11-18] MEDS: SYMBICORT 160/4.5MCG INHALER 6GM INH SCH ×2 (08:47→20:29)
[2021-11-18] MEDS: NICOTINE 21MG/24HR 1 EA TRANSDERMAL TD PRN (10:29)
[2021-11-18] MEDS: OLANZapine ORAL DISINTEGRATING TAB 5MG PO PRN (13:53)
[2021-11-18 18:42] VITALS: BP 140/80
[2021-11-18] MEDS: QUEtiapine FUMARATE 200 MG TAB PO SCH (20:31)
[2021-11-19 06:24] VITALS: BP 133/78
[2021-11-19] MEDS: SYMBICORT 160/4.5MCG INHALER 6GM INH SCH ×2 (08:51→20:19)
[2021-11-19] MEDS: clonazePAM 0.5 MG TAB PO SCH ×2 (08:51→20:20)
[2021-11-19] MEDS: BENZTROPINE 2 MG TAB PO SCH ×2 (08:52→20:20)
[2021-11-19] MEDS: TIOTROPIUM INHALER/CAPSULE (SPIRIVA) INH SCH (08:52)
[2021-11-19] MEDS: DIVALPROEX 250 MG TAB PO SCH ×2 (08:52→20:20)
[2021-11-19] MEDS: NICOTINE 21MG/24HR 1 EA TRANSDERMAL TD PRN (10:13)
[2021-11-19] MEDS: ACETAMINOPHEN TAB 650MG DOSE (2X325MG) PO PRN (15:08)
[2021-11-19 18:33] VITALS: BP 125/82
[2021-11-19] MEDS: OLANZapine ORAL DISINTEGRATING TAB 5MG PO PRN (18:39)
[2021-11-19] MEDS: QUEtiapine FUMARATE 200 MG TAB PO SCH (20:20)
[2021-11-20 06:27] VITALS: BP 117/76
[2021-11-20] MEDS: TIOTROPIUM INHALER/CAPSULE (SPIRIVA) INH SCH (08:57)
[2021-11-20] MEDS: clonazePAM 0.5 MG TAB PO SCH ×2 (08:57→20:46)
[2021-11-20] MEDS: SYMBICORT 160/4.5MCG INHALER 6GM INH SCH ×2 (08:57→20:47)
[2021-11-20] MEDS: BENZTROPINE 2 MG TAB PO SCH ×2 (08:57→20:46)
[2021-11-20] MEDS: DIVALPROEX 250 MG TAB PO SCH ×2 (08:57→20:46)
[2021-11-20] MEDS: ACETAMINOPHEN TAB 650MG DOSE (2X325MG) PO PRN (13:53)
[2021-11-20 14:31] LABS: ALBUMIN 3.8 GM/DL (3.2-5.2); ALT/SGPT 128 U/L (12-78); BILIRUBIN,TOTAL 0.2 MG/DL (0.2-1.0); BLOOD UREA NITROGEN 10 MG/DL (7-18); CALCIUM LEVEL 9.5 MG/DL (8.5-10.1); CARBON DIOXIDE LEVEL 31 MEQ/L (21-32); CHLORIDE LEVEL 106 MEQ/L (98-107); CREATININE FOR GFR 0.74 MG/DL (0.70-1.30); GLOMERULAR FILTRATION RATE > 60.0 (>60); GLUCOSE, FASTING 106 MG/DL (70-100); POTASSIUM SERUM 4.5 MEQ/L (3.5-5.1); SODIUM LEVEL 142 MEQ/L (136-145); TOTAL PROTEIN 6.9 GM/DL (6.4-8.2)
[2021-11-20 14:39] LABS: HEPATITIS B SURFACE ANTIBODY NEGATIVE (POSITIVE)
[2021-11-20 14:50] LABS: HEPATITIS B SURFACE ANTIGEN NEGATIVE (NEGATIVE)
[2021-11-20] MEDS: NICOTINE 21MG/24HR 1 EA TRANSDERMAL TD PRN (15:04)
[2021-11-20 15:19] LABS: HEPATITIS C VIRUS ABY INDEX 0.2 INDEX (<0.8)
[2021-11-20 16:16] VITALS: BP 136/94
[2021-11-20] MEDS: QUEtiapine FUMARATE 200 MG TAB PO SCH (20:46)
[2021-11-21 06:24] VITALS: BP 124/71
[2021-11-21] MEDS: SYMBICORT 160/4.5MCG INHALER 6GM INH SCH ×2 (08:50→20:26)
[2021-11-21] MEDS: DIVALPROEX 250 MG TAB PO SCH ×2 (08:51→20:26)
[2021-11-21] MEDS: TIOTROPIUM INHALER/CAPSULE (SPIRIVA) INH SCH (08:51)
[2021-11-21] MEDS: BENZTROPINE 2 MG TAB PO SCH ×2 (08:51→20:25)
[2021-11-21] MEDS: clonazePAM 0.5 MG TAB PO SCH ×2 (08:52→20:25)
[2021-11-21 09:50] LABS: CHOLESTEROL RISK RATIO 8.304 (<5)
[2021-11-21] MEDS: ACETAMINOPHEN TAB 650MG DOSE (2X325MG) PO PRN (14:29)
[2021-11-21 16:40] VITALS: BP 135/75
[2021-11-21] MEDS: QUEtiapine FUMARATE 200 MG TAB PO SCH (20:25)
[2021-11-22 06:18] VITALS: BP 175/91
[2021-11-22] MEDS: BENZTROPINE 2 MG TAB PO SCH ×2 (08:53→20:22)
[2021-11-22] MEDS: TIOTROPIUM INHALER/CAPSULE (SPIRIVA) INH SCH (08:53)
[2021-11-22] MEDS: SYMBICORT 160/4.5MCG INHALER 6GM INH SCH ×2 (08:53→19:43)
[2021-11-22] MEDS: DIVALPROEX 250 MG TAB PO SCH ×2 (08:54→20:21)
[2021-11-22] MEDS: clonazePAM 0.5 MG TAB PO SCH ×2 (08:54→20:21)
[2021-11-22] MEDS ORDERED: LORazepam 2 MG TAB PO ONE (10:00)
[2021-11-22] MEDS: ACETAMINOPHEN TAB 650MG DOSE (2X325MG) PO PRN (10:12)
[2021-11-22] MEDS: NICOTINE 21MG/24HR 1 EA TRANSDERMAL TD PRN (14:12)
[2021-11-22 17:13] VITALS: BP 100/70
[2021-11-22] MEDS: QUEtiapine FUMARATE 200 MG TAB PO SCH (20:22)
[2021-11-23 08:00] LABS: ALBUMIN 3.7 GM/DL (3.2-5.2); ALT/SGPT 119 U/L (12-78); BILIRUBIN,TOTAL 0.2 MG/DL (0.2-1.0); BLOOD UREA NITROGEN 10 MG/DL (7-18); CALCIUM LEVEL 9.6 MG/DL (8.5-10.1); CARBON DIOXIDE LEVEL 28 MEQ/L (21-32); CHLORIDE LEVEL 108 MEQ/L (98-107); CREATININE FOR GFR 0.73 MG/DL (0.70-1.30); GLOMERULAR FILTRATION RATE > 60.0 (>60); GLUCOSE, FASTING 115 MG/DL (70-100); POTASSIUM SERUM 4.5 MEQ/L (3.5-5.1); SODIUM LEVEL 142 MEQ/L (136-145); TOTAL PROTEIN 7.1 GM/DL (6.4-8.2)
[2021-11-23] MEDS: TIOTROPIUM INHALER/CAPSULE (SPIRIVA) INH SCH (08:20)
[2021-11-23] MEDS: SYMBICORT 160/4.5MCG INHALER 6GM INH SCH ×2 (08:20→20:24)
[2021-11-23] MEDS: BENZTROPINE 2 MG TAB PO SCH ×2 (08:20→20:25)
[2021-11-23] MEDS: clonazePAM 0.5 MG TAB PO SCH ×2 (08:20→20:25)
[2021-11-23] MEDS: DIVALPROEX 500 MG TAB PO SCH ×2 (08:21→20:25)
[2021-11-23] MEDS: NICOTINE 21MG/24HR 1 EA TRANSDERMAL TD PRN (09:45)
[2021-11-23] MEDS: ACETAMINOPHEN TAB 650MG DOSE (2X325MG) PO PRN (13:17)
[2021-11-23] MEDS: LORazepam 2 MG TAB PO PRN (15:37)
[2021-11-23 19:03] VITALS: BP 148/89
[2021-11-23] MEDS: QUEtiapine FUMARATE 200 MG TAB PO SCH (20:25)
[2021-11-24] MEDS: ACETAMINOPHEN TAB 650MG DOSE (2X325MG) PO PRN (06:54)
[2021-11-24 06:57] VITALS: BP 133/87
[2021-11-24] MEDS: BENZTROPINE 2 MG TAB PO SCH ×2 (08:13→20:04)
[2021-11-24] MEDS: SYMBICORT 160/4.5MCG INHALER 6GM INH SCH ×2 (08:13→20:04)
[2021-11-24] MEDS: DIVALPROEX 500 MG TAB PO SCH ×2 (08:14→20:05)
[2021-11-24] MEDS: clonazePAM 0.5 MG TAB PO SCH ×2 (08:14→20:04)
[2021-11-24] MEDS: TIOTROPIUM INHALER/CAPSULE (SPIRIVA) INH SCH (08:14)
[2021-11-24] MEDS: LORazepam 2 MG TAB PO PRN (09:29)
[2021-11-24] MEDS: NICOTINE 21MG/24HR 1 EA TRANSDERMAL TD PRN (09:44)
[2021-11-24 16:36] VITALS: BP 118/76
[2021-11-24] MEDS: QUEtiapine FUMARATE 200 MG TAB PO SCH (20:05)
[2021-11-24] MEDS: PALIPERIDONE 3 MG ER TAB (INVEGA) PO SCH (20:05)
[2021-11-25 06:32] VITALS: BP 131/72
[2021-11-25] MEDS: clonazePAM 0.5 MG TAB PO SCH ×2 (07:57→21:06)
[2021-11-25] MEDS: BENZTROPINE 2 MG TAB PO SCH ×2 (07:58→21:06)
[2021-11-25] MEDS: DIVALPROEX 500 MG TAB PO SCH ×2 (07:59→21:07)
[2021-11-25] MEDS: SYMBICORT 160/4.5MCG INHALER 6GM INH SCH ×2 (07:59→21:04)
[2021-11-25] MEDS: TIOTROPIUM INHALER/CAPSULE (SPIRIVA) INH SCH (07:59)
[2021-11-25] MEDS: NICOTINE 21MG/24HR 1 EA TRANSDERMAL TD PRN (09:54)
[2021-11-25] MEDS: ACETAMINOPHEN TAB 650MG DOSE (2X325MG) PO PRN (13:26)
[2021-11-25 16:17] VITALS: BP 133/89
[2021-11-25] MEDS: QUEtiapine FUMARATE 200 MG TAB PO SCH (21:06)
[2021-11-25] MEDS: PALIPERIDONE 3 MG ER TAB (INVEGA) PO SCH (21:06)
[2021-11-26 06:39] VITALS: BP 142/79
[2021-11-26] MEDS: ACETAMINOPHEN TAB 650MG DOSE (2X325MG) PO PRN ×2 (06:42→12:55)
[2021-11-26] MEDS: SYMBICORT 160/4.5MCG INHALER 6GM INH SCH ×2 (07:58→20:25)
[2021-11-26] MEDS: DIVALPROEX 500 MG TAB PO SCH ×2 (07:58→20:26)
[2021-11-26] MEDS: TIOTROPIUM INHALER/CAPSULE (SPIRIVA) INH SCH (07:58)
[2021-11-26] MEDS: BENZTROPINE 2 MG TAB PO SCH ×2 (07:58→20:25)
[2021-11-26] MEDS: clonazePAM 0.5 MG TAB PO SCH ×2 (07:59→20:26)
[2021-11-26 17:56] VITALS: BP 126/80
[2021-11-26] MEDS: QUEtiapine FUMARATE 200 MG TAB PO SCH (20:25)
[2021-11-26] MEDS: PALIPERIDONE 3 MG ER TAB (INVEGA) PO SCH (20:26)
[2021-11-27 06:54] VITALS: BP 125/72
[2021-11-27] MEDS: SYMBICORT 160/4.5MCG INHALER 6GM INH SCH ×2 (08:32→22:03)
[2021-11-27] MEDS: DIVALPROEX 500 MG TAB PO SCH ×2 (08:33→22:03)
[2021-11-27] MEDS: BENZTROPINE 2 MG TAB PO SCH ×2 (08:33→22:04)
[2021-11-27] MEDS: TIOTROPIUM INHALER/CAPSULE (SPIRIVA) INH SCH (08:33)
[2021-11-27] MEDS: clonazePAM 0.5 MG TAB PO SCH ×2 (08:33→22:03)
[2021-11-27] MEDS: NICOTINE 21MG/24HR 1 EA TRANSDERMAL TD PRN (10:35)
[2021-11-27] MEDS: LORazepam 2 MG TAB PO PRN (15:34)
[2021-11-27 17:52] VITALS: BP 134/86
[2021-11-27] MEDS: QUEtiapine FUMARATE 200 MG TAB PO SCH (22:03)
[2021-11-27] MEDS: PALIPERIDONE 6 MG ER TAB (INVEGA) PO SCH (22:04)
[2021-11-28 07:06] VITALS: BP 156/76
[2021-11-28 07:31] LABS: ALBUMIN 3.5 GM/DL (3.2-5.2); ALT/SGPT 107 U/L (12-78); BILIRUBIN,TOTAL 0.3 MG/DL (0.2-1.0); BLOOD UREA NITROGEN 7 MG/DL (7-18); CALCIUM LEVEL 9.1 MG/DL (8.5-10.1); CARBON DIOXIDE LEVEL 32 MEQ/L (21-32); CHLORIDE LEVEL 104 MEQ/L (98-107); CREATININE FOR GFR 0.63 MG/DL (0.70-1.30); GLOMERULAR FILTRATION RATE > 60.0 (>60); GLUCOSE, FASTING 88 MG/DL (70-100); POTASSIUM SERUM 4.4 MEQ/L (3.5-5.1); SODIUM LEVEL 139 MEQ/L (136-145); TOTAL PROTEIN 6.9 GM/DL (6.4-8.2); VALPROIC ACID (DEPAKOTE) 60.8 UG/ML (50.0-100.0)
[2021-11-28] MEDS: SYMBICORT 160/4.5MCG INHALER 6GM INH SCH ×2 (08:41→21:47)
[2021-11-28] MEDS: BENZTROPINE 2 MG TAB PO SCH ×2 (08:44→21:48)
[2021-11-28] MEDS: DIVALPROEX 500 MG TAB PO SCH (08:44)
[2021-11-28] MEDS: clonazePAM 0.5 MG TAB PO SCH ×2 (08:44→21:47)
[2021-11-28] MEDS: TIOTROPIUM INHALER/CAPSULE (SPIRIVA) INH SCH (08:44)
[2021-11-28] MEDS: ACETAMINOPHEN TAB 650MG DOSE (2X325MG) PO PRN ×2 (09:53→16:08)
[2021-11-28] MEDS: NICOTINE 21MG/24HR 1 EA TRANSDERMAL TD PRN (14:45)
[2021-11-28 18:00] VITALS: BP 142/86
[2021-11-28] MEDS: QUEtiapine FUMARATE 200 MG TAB PO SCH (21:47)
[2021-11-28] MEDS: DIVALPROEX 250 MG TAB PO SCH (21:47)
[2021-11-28] MEDS: PALIPERIDONE 6 MG ER TAB (INVEGA) PO SCH (21:48)
[2021-11-29 06:00] VITALS: BP 139/89
[2021-11-29] MEDS: BENZTROPINE 2 MG TAB PO SCH ×2 (09:03→20:49)
[2021-11-29] MEDS: DIVALPROEX 250 MG TAB PO SCH ×2 (09:03→20:50)
[2021-11-29] MEDS: clonazePAM 0.5 MG TAB PO SCH ×2 (09:03→20:50)
[2021-11-29] MEDS: TIOTROPIUM INHALER/CAPSULE (SPIRIVA) INH SCH (09:04)
[2021-11-29] MEDS: SYMBICORT 160/4.5MCG INHALER 6GM INH SCH ×2 (09:04→20:48)
[2021-11-29] MEDS: NICOTINE 21MG/24HR 1 EA TRANSDERMAL TD PRN (16:26)
[2021-11-29 18:14] VITALS: BP 141/79
[2021-11-29] MEDS: PALIPERIDONE 6 MG ER TAB (INVEGA) PO SCH (20:49)
[2021-11-29] MEDS: QUEtiapine FUMARATE 200 MG TAB PO SCH (20:50)
[2021-11-30 06:30] VITALS: BP 140/72
[2021-11-30] MEDS: SYMBICORT 160/4.5MCG INHALER 6GM INH SCH ×2 (08:00→20:14)
[2021-11-30] MEDS: TIOTROPIUM INHALER/CAPSULE (SPIRIVA) INH SCH ×2 (08:00→08:41)
[2021-11-30] MEDS: DIVALPROEX 250 MG TAB PO SCH ×2 (08:41→20:14)
[2021-11-30] MEDS: clonazePAM 0.5 MG TAB PO SCH ×2 (08:42→20:14)
[2021-11-30] MEDS: BENZTROPINE 2 MG TAB PO SCH ×2 (08:42→20:14)
[2021-11-30] MEDS: NICOTINE 21MG/24HR 1 EA TRANSDERMAL TD PRN (09:48)
[2021-11-30] MEDS: ACETAMINOPHEN TAB 650MG DOSE (2X325MG) PO PRN (12:04)
[2021-11-30 19:02] VITALS: BP 143/86
[2021-11-30] MEDS: QUEtiapine FUMARATE 200 MG TAB PO SCH (20:10)
[2021-11-30] MEDS: PALIPERIDONE 6 MG ER TAB (INVEGA) PO SCH (20:14)
[2021-11-30] MEDS: traZODone 50 MG TAB PO PRN (20:14)
[2021-12-01] MEDS: ACETAMINOPHEN TAB 650MG DOSE (2X325MG) PO PRN ×2 (05:21→14:51)
[2021-12-01 06:25] VITALS: BP 143/76
[2021-12-01] MEDS: SYMBICORT 160/4.5MCG INHALER 6GM INH SCH ×2 (07:47→19:55)
[2021-12-01] MEDS: DIVALPROEX 250 MG TAB PO SCH ×2 (08:35→20:33)
[2021-12-01] MEDS: clonazePAM 0.5 MG TAB PO SCH ×2 (08:35→20:32)
[2021-12-01] MEDS: TIOTROPIUM INHALER/CAPSULE (SPIRIVA) INH SCH (08:35)
[2021-12-01] MEDS: BENZTROPINE 2 MG TAB PO SCH ×2 (08:35→20:33)
[2021-12-01] MEDS ORDERED: QUET400T2 PO (10:03)
[2021-12-01] MEDS ORDERED: INVE156I IM (10:03)
[2021-12-01] MEDS ORDERED: BENZ2TAB5 PO (10:03)
[2021-12-01] MEDS ORDERED: CLON0.5T17 PO (10:03)
[2021-12-01] MEDS ORDERED: DEPA1TAB3 PO (10:04)
[2021-12-01] MEDS ORDERED: DEPA250T32 PO (10:04)
[2021-12-01] MEDS ORDERED: NICO21PAT TD (10:04)
[2021-12-01 18:53] VITALS: BP 139/78
[2021-12-01] MEDS: QUEtiapine FUMARATE 200 MG TAB PO SCH (20:32)
[2021-12-01] MEDS: PALIPERIDONE 6 MG ER TAB (INVEGA) PO SCH (20:33)
[2021-12-02 06:56] VITALS: BP 116/74
[2021-12-02] MEDS: SYMBICORT 160/4.5MCG INHALER 6GM INH SCH ×2 (08:12→19:59)
[2021-12-02] MEDS: BENZTROPINE 2 MG TAB PO SCH ×2 (08:13→20:03)
[2021-12-02] MEDS: DIVALPROEX 250 MG TAB PO SCH ×2 (08:15→20:07)
[2021-12-02] MEDS: clonazePAM 0.5 MG TAB PO SCH ×2 (08:15→20:05)
[2021-12-02] MEDS: TIOTROPIUM INHALER/CAPSULE (SPIRIVA) INH SCH (08:16)
[2021-12-02] MEDS: NICOTINE 21MG/24HR 1 EA TRANSDERMAL TD PRN (08:17)
[2021-12-02 19:45] VITALS: BP 128/81
[2021-12-02] MEDS: PALIPERIDONE 6 MG ER TAB (INVEGA) PO SCH (20:03)
[2021-12-02] MEDS: QUEtiapine FUMARATE 200 MG TAB PO SCH (20:04)
[2021-12-03 06:51] VITALS: BP 135/84
[2021-12-03] MEDS: SYMBICORT 160/4.5MCG INHALER 6GM INH SCH ×2 (07:42→21:17)
[2021-12-03] MEDS: clonazePAM 0.5 MG TAB PO SCH ×2 (08:32→20:22)
[2021-12-03] MEDS: DIVALPROEX 250 MG TAB PO SCH ×2 (08:32→20:23)
[2021-12-03] MEDS: BENZTROPINE 2 MG TAB PO SCH ×2 (08:32→20:23)
[2021-12-03] MEDS: TIOTROPIUM INHALER/CAPSULE (SPIRIVA) INH SCH (08:32)
[2021-12-03] MEDS: NICOTINE 21MG/24HR 1 EA TRANSDERMAL TD PRN (09:58)
[2021-12-03] MEDS: ACETAMINOPHEN TAB 650MG DOSE (2X325MG) PO PRN (16:41)
[2021-12-03 20:17] VITALS: BP 139/88
[2021-12-03] MEDS: QUEtiapine FUMARATE 200 MG TAB PO SCH ×2 (20:20→21:18)
[2021-12-03] MEDS: traZODone 50 MG TAB PO PRN (20:22)
[2021-12-03] MEDS: PALIPERIDONE 6 MG ER TAB (INVEGA) PO SCH (20:23)
[2021-12-04 06:37] VITALS: BP 126/83
[2021-12-04] MEDS: SYMBICORT 160/4.5MCG INHALER 6GM INH SCH (08:23)
[2021-12-04] MEDS: clonazePAM 0.5 MG TAB PO SCH (08:24)
[2021-12-04] MEDS: DIVALPROEX 250 MG TAB PO SCH (08:24)
[2021-12-04] MEDS: BENZTROPINE 2 MG TAB PO SCH (08:25)
[2021-12-04] MEDS: TIOTROPIUM INHALER/CAPSULE (SPIRIVA) INH SCH (08:25)
[2021-12-04] MEDS ORDERED: PALIPERIDONE PALMITATE 156MG/1ML INJ(INVEGA)(FREE PSY INPT ONLY) IM SCH (09:00)
[2021-12-04] MEDS ORDERED: INVE156I IM ×3 (09:49→10:52)
[2021-12-04] MEDS ORDERED: ALBU8.5H INH (10:52)
[2021-12-04] MEDS ORDERED: INCR1INH INH (10:52)
[2021-12-04] MEDS ORDERED: BENZ2TAB5 PO (10:52)
[2021-12-04] MEDS ORDERED: CLON0.5T17 PO (10:52)
[2021-12-04] MEDS ORDERED: DEPA250T32 PO ×2 (10:52→11:52)
[2021-12-04] MEDS ORDERED: NICO21DI37 TOP (10:52)
[2021-12-04] MEDS ORDERED: SERO400T PO (11:45)
[2021-12-04] MEDS ORDERED: DEPA1TAB3 PO (11:52)
== END 2021-12-04 13:58 | disposition home or self-care (01) | DRG 885 ==
LOC: M ED 09:46 → EDBD 09:46 → M ED INP 11-16 12:57 → M PSY 11-16 14:05
PROVIDERS: ADMIT Psychiatry & Neurology Psychiatry; ATTEND Psychiatry & Neurology Psychiatry
DX: F25.0 Schizoaffective disorder, bipolar type (principal); F17.210 Nicotine dependence, cigarettes, uncomplicated; F19.90 Other psychoactive substance use, unspecified, uncomplicated; Z20.822 Contact with and (suspected) exposure to COVID-19; Z79.899 Other long term (current) drug therapy; Z88.0 Allergy status to penicillin; Z88.6 Allergy status to analgesic agent; Z91.013 Allergy to seafood; Z60.9 Problem related to social environment, unspecified; M54.9 Dorsalgia, unspecified; F90.9 Attention-deficit hyperactivity disorder, unspecified type; I10 Essential (primary) hypertension; E78.5 Hyperlipidemia, unspecified; J44.9 Chronic obstructive pulmonary disease, unspecified; G40.909 Epilepsy, unspecified, not intractable, without status epilepticus; R74.01 Elevation of levels of liver transaminase levels; Z79.51 Long term (current) use of inhaled steroids

== ENCOUNTER 2022-03-22 00:39 | Emergency (ER) | payer MEDICARE, MEDICAID ==
[~2022-03-22] VITALS: Ht 175.3 cm; Wt 91.9 kg
[~2022-03-22 00:39] MED LIST changes: +CLON0.5T17 PO; +DEPA250T32 PO; +INCR1INH INH; +MED NOTE; +NICO21DI37 TOP; +SERO400T PO
[2022-03-22 00:53] VITALS: BP 136/83
== END 2022-03-22 04:00 | disposition left against medical advice (07) ==
LOC: EDBD 00:39 → M ED 00:39
DX: Z53.29 Procedure and treatment not carried out because of patient's decision for other reasons (principal)

== ENCOUNTER 2022-03-25 23:48 | Emergency (ER) | payer MEDICARE, MEDICAID ==
[~2022-03-25] VITALS: Ht 175.3 cm; Wt 91.4 kg
[2022-03-25 23:59] VITALS: BP 177/98
== END 2022-03-26 01:24 | disposition left against medical advice (07) ==
LOC: EDBD 23:48 → M ED 23:48
DX: Z53.29 Procedure and treatment not carried out because of patient's decision for other reasons (principal)

== ENCOUNTER 2022-08-04 22:31 | Emergency (ER) | payer MEDICARE, MEDICAID ==
[~2022-08-04] VITALS: Ht 170.2 cm; Wt 93.7 kg
[2022-08-04 22:36] VITALS: BP 143/75
== END 2022-08-05 03:05 | disposition left against medical advice (07) ==
LOC: M ED 22:31 → EDBD 22:31 → M ED 08-05 03:05
DX: Z53.21 Procedure and treatment not carried out due to patient leaving prior to being seen by health care provider (principal)

== ENCOUNTER 2022-08-05 20:16 | Emergency (ER) | payer MEDICARE, MEDICAID ==
[~2022-08-05] VITALS: Ht 170.2 cm; Wt 96.4 kg
[2022-08-05 20:20] VITALS: BP 148/94
== END 2022-08-05 20:35 | disposition left against medical advice (07) ==
LOC: M ED 20:16 → EDBD 20:16 → M ED 20:35
DX: Z53.21 Procedure and treatment not carried out due to patient leaving prior to being seen by health care provider (principal)

== ENCOUNTER 2022-08-07 02:39 | Emergency (ER) | payer MEDICARE, MEDICAID | END 2022-08-07 03:12 | disposition left against medical advice (07) | LOC: M ED 02:39 → EDBD 02:39 → M ED 03:12 | DX: Z53.21 Procedure and treatment not carried out due to patient leaving prior to being seen by health care provider (principal) ==

== ENCOUNTER → 2022-08-10 | Outpatient (REF) | payer MEDICARE, MEDICAID ==
[2022-08-10 18:42] LABS: BASO % 0.3 % (0.0-1.0); EOS # 0.2 10^3/uL (0.0-0.5); EOS % 2.1 % (0.0-3.0); HEMATOCRIT 44.3 % (42.0-52.0); HEMOGLOBIN 14.4 g/dl (13.5-17.5); LYMPH # 2.2 10^3/uL (1.5-5.0); LYMPH % 23.6 % (24.0-44.0); MEAN CORPUSCULAR HEMOGLOBIN 30.8 pg (27.0-33.0); MEAN CORPUSCULAR HGB CONC 32.5 g/dl (32.0-36.5); MEAN CORPUSCULAR VOLUME 94.7 fl (80.0-96.0); MONO # 0.8 10^3/uL (0.0-0.8); MONO % 8.2 % (2.0-8.0); NEUTROPHILS # 6.1 10^3/uL (1.5-8.5); NEUTROPHILS % 65.4 % (36.0-66.0); PLATELET COUNT, AUTOMATED 300 10^3/uL (150-450); RED BLOOD COUNT 4.68 10^6/uL (4.30-6.10); WHITE BLOOD COUNT 9.4 10^3/uL (4.0-10.0)
[2022-08-10 19:24] LABS: ALBUMIN 3.4 G/DL (3.2-5.2); ALKALINE PHOSPHATASE 72 U/L (46-116); ALT/SGPT 100 U/L (7.0-40); AST/SGOT 91 U/L (<34); BILIRUBIN,TOTAL 0.2 MG/DL (0.3-1.2); BLOOD UREA NITROGEN 6 MG/DL (9-23); CALCIUM LEVEL 9.4 MG/DL (8.5-10.1); CARBON DIOXIDE LEVEL 26 MMOL/L (20-31); CHLORIDE LEVEL 100 MMOL/L (98-107); CHOLESTEROL LEVEL 175 MG/DL (<200); CHOLESTEROL RISK RATIO 7.41 (<5); CREATININE FOR GFR 0.57 MG/DL (0.70-1.30); GLOMERULAR FILTRATION RATE > 60.0 (>60); GLUCOSE, FASTING 81 MG/DL (60-100); HDL CHOLESTEROL 23.6 MG/DL (>40); NON-HDL-C 151 MG/DL; POTASSIUM SERUM 4.5 MMOL/L (3.5-5.1); SODIUM LEVEL 134 MMOL/L (136-145); THYROID STIMULATING HORMONE 0.658 uIU/ML (0.55-4.78); TOTAL PROTEIN 6.5 G/DL (5.7-8.2); TRIGLYCERIDES LEVEL 307 MG/DL (<150)
[2022-08-10 19:35] LABS: HEMOGLOBIN A1c 4.9 % (4.0-6.0)
== END ==
LOC: M LAB REF 16:56
PROVIDERS: ATTEND Pediatrics
DX: E78.5 Hyperlipidemia, unspecified (principal); E66.3 Overweight; Z51.81 Encounter for therapeutic drug level monitoring; R73.9 Hyperglycemia, unspecified

== ENCOUNTER 2022-08-12 18:53 | Emergency (ER) | payer MEDICARE, MEDICAID ==
[~2022-08-12] VITALS: Ht 170.2 cm; Wt 94.5 kg
[2022-08-12 19:01] VITALS: BP 138/84
== END 2022-08-12 19:51 | disposition left against medical advice (07) ==
LOC: EDBD 18:53 → M ED 18:53
DX: Z53.21 Procedure and treatment not carried out due to patient leaving prior to being seen by health care provider (principal)

== ENCOUNTER 2022-09-06 14:11 | Inpatient (IN) | payer MEDICARE, MEDICAID ==
[2022-09-06 14:53] LABS: HEMATOCRIT 42.3 % (42.0-52.0); HEMOGLOBIN 14.2 g/dl (13.5-17.5); MEAN CORPUSCULAR HEMOGLOBIN 31.1 pg (27.0-33.0); MEAN CORPUSCULAR HGB CONC 33.6 g/dl (32.0-36.5); MEAN CORPUSCULAR VOLUME 92.8 fl (80.0-96.0); PLATELET COUNT, AUTOMATED 215 10^3/uL (150-450); RED BLOOD COUNT 4.56 10^6/uL (4.30-6.10); WHITE BLOOD COUNT 7.4 10^3/uL (4.0-10.0)
[2022-09-06 15:21] LABS: AMPHETAMINES LEVEL URINE NEGATIVE (NEGATIVE); BARBITURATES URINE NEGATIVE (NEGATIVE); BENZODIAZEPINES URINE NEGATIVE (NEGATIVE); CANNABINOIDS URINE NEGATIVE (NEGATIVE); COCAINE METABOLITE URINE NEGATIVE (NEGATIVE); METHADONE URINE NEGATIVE (NEGATIVE); OPIATES URINE NEGATIVE (NEGATIVE); PHENCYCLIDINE URINE NEGATIVE (NEGATIVE)
[2022-09-06 15:24] LABS: ETHYL ALCOHOL (ETHANOL) 0.003 % (0.000-0.010)
[2022-09-06 15:25] LABS: ACETAMINOPHEN LEVEL < 2.0 UG/ML (10.0-20.0); ALBUMIN 3.4 G/DL (3.2-5.2); ALKALINE PHOSPHATASE 67 U/L (46-116); ALT/SGPT 80 U/L (7.0-40); AST/SGOT 56 U/L (<34); BILIRUBIN,TOTAL 0.3 MG/DL (0.3-1.2); BLOOD UREA NITROGEN 10 MG/DL (9-23); CARBON DIOXIDE LEVEL 26 MMOL/L (20-31); CHLORIDE LEVEL 101 MMOL/L (98-107); CREATININE FOR GFR 0.49 MG/DL (0.70-1.30); GLOMERULAR FILTRATION RATE > 60.0 (>60); GLUCOSE, FASTING 107 MG/DL (60-100); POTASSIUM SERUM 4.4 MMOL/L (3.5-5.1); SALICYLATE LEVEL < 3.0 MG/DL (<30); SODIUM LEVEL 135 MMOL/L (136-145); TOTAL PROTEIN 6.5 G/DL (5.7-8.2)
[2022-09-06 15:26] LABS: BILIRUBIN,DIRECT 0.1 MG/DL (<0.4)
[2022-09-06 15:27] LABS: THYROID STIMULATING HORMONE 0.833 uIU/ML (0.55-4.78)
[2022-09-06 20:23] VITALS: BP 113/61
[2022-09-06] MEDS ORDERED: LORazepam 1 MG TAB PO ONE (22:40)
[2022-09-06] MEDS ORDERED: MAALOX 30 ML SUSP *UDC PO PRN (22:40)
[2022-09-06] MEDS ORDERED: OLANZapine ORAL DISINTEGRATING TAB 5MG PO PRN (22:40)
[2022-09-06] MEDS ORDERED: MOM 30ML SUSPENSION UDC PO PRN (22:40)
[2022-09-07 06:37] VITALS: BP 125/59
[2022-09-07] MEDS: NICOTINE 21MG/24HR 1 EA TRANSDERMAL TD SCH (07:54)
[2022-09-07] MEDS: ACETAMINOPHEN TAB 650MG DOSE (2X325MG) PO PRN ×2 (08:08→16:36)
[2022-09-07] MEDS ORDERED: ALBUTEROL SULFATE 2.5MG/0.5ML INH NEB SOLN NEB PRN (11:45)
[2022-09-07] MEDS ORDERED: CLON0.5T2 PO (15:17)
[2022-09-07] MEDS ORDERED: ANOR1AER INH (15:17)
[2022-09-07] MEDS ORDERED: D200CAP PO (15:17)
[2022-09-07] MEDS ORDERED: VASC1CAP2 PO (15:17)
[2022-09-07] MEDS ORDERED: INVE6TAB3 PO (15:17)
[2022-09-07] MEDS ORDERED: DIVA500T94 PO (15:17)
[2022-09-07] MEDS ORDERED: TRAZ-252 PO (15:17)
[2022-09-07] MEDS ORDERED: QUET400T2 PO (15:17)
[2022-09-07] MEDS ORDERED: INVE234I IM (15:17)
[2022-09-07] MEDS ORDERED: VENTAER INH (15:17)
[2022-09-07] MEDS ORDERED: BENZ2TAB5 PO (15:17)
[2022-09-07] MEDS ORDERED: HOME MED LIST COMPLETE! XX SCH (15:20)
[2022-09-07 18:14] VITALS: BP 122/79
[2022-09-07] MEDS: ADVAIR HFA 115/21MCG INHALER INH SCH (20:00)
[2022-09-07] MEDS: traZODone 50 MG TAB PO PRN (20:02)
[2022-09-07] MEDS: QUEtiapine FUMARATE 200 MG TAB PO SCH (20:02)
[2022-09-07] MEDS: BENZTROPINE 2 MG TAB PO SCH (20:02)
[2022-09-07] MEDS: clonazePAM 0.5 MG TAB PO SCH (20:03)
[2022-09-07] MEDS: DIVALPROEX 500 MG TAB PO SCH (20:03)
[2022-09-08 06:35] VITALS: BP 128/78
[2022-09-08] MEDS: ADVAIR HFA 115/21MCG INHALER INH SCH ×2 (07:59→20:05)
[2022-09-08] MEDS: TIOTROPIUM INHALER/CAPSULE (SPIRIVA) INH SCH (07:59)
[2022-09-08] MEDS: BENZTROPINE 2 MG TAB PO SCH ×2 (08:00→20:06)
[2022-09-08] MEDS: DIVALPROEX 500 MG TAB PO SCH ×2 (08:01→20:06)
[2022-09-08] MEDS: NICOTINE 21MG/24HR 1 EA TRANSDERMAL TD SCH (08:02)
[2022-09-08] MEDS: clonazePAM 0.5 MG TAB PO SCH ×2 (08:02→20:06)
[2022-09-08] MEDS: ACETAMINOPHEN TAB 650MG DOSE (2X325MG) PO PRN (10:35)
[2022-09-08] MEDS: OLANZapine ORAL DISINTEGRATING TAB 5MG PO PRN (10:35)
[2022-09-08] MEDS: NICOTINE POLACRILEX 2 MG GUM PO PRN (17:05)
[2022-09-08 17:38] VITALS: BP 141/95
[2022-09-08] MEDS: QUEtiapine FUMARATE 200 MG TAB PO SCH (20:06)
[2022-09-08] MEDS: traZODone 50 MG TAB PO PRN (20:06)
[2022-09-09 06:54] VITALS: BP 114/59
[2022-09-09] MEDS: BENZTROPINE 2 MG TAB PO SCH ×2 (08:25→19:54)
[2022-09-09] MEDS: TIOTROPIUM INHALER/CAPSULE (SPIRIVA) INH SCH (08:25)
[2022-09-09] MEDS: DIVALPROEX 500 MG TAB PO SCH ×2 (08:25→19:55)
[2022-09-09] MEDS: ADVAIR HFA 115/21MCG INHALER INH SCH ×2 (08:25→19:54)
[2022-09-09] MEDS: clonazePAM 0.5 MG TAB PO SCH ×2 (08:26→19:54)
[2022-09-09] MEDS: OLANZapine ORAL DISINTEGRATING TAB 5MG PO PRN ×2 (11:38→23:00)
[2022-09-09] MEDS: ACETAMINOPHEN TAB 650MG DOSE (2X325MG) PO PRN (11:38)
[2022-09-09 18:00] VITALS: BP 143/98
[2022-09-09] MEDS: NICOTINE POLACRILEX 2 MG GUM PO PRN (18:01)
[2022-09-09] MEDS: QUEtiapine FUMARATE 200 MG TAB PO SCH (19:55)
[2022-09-09] MEDS: traZODone 50 MG TAB PO PRN (19:55)
[2022-09-10] MEDS: NICOTINE POLACRILEX 2 MG GUM PO PRN ×3 (00:09→17:56)
[2022-09-10] MEDS: ACETAMINOPHEN TAB 650MG DOSE (2X325MG) PO PRN ×2 (03:38→12:38)
[2022-09-10] MEDS: ADVAIR HFA 115/21MCG INHALER INH SCH ×2 (07:50→20:10)
[2022-09-10] MEDS: TIOTROPIUM INHALER/CAPSULE (SPIRIVA) INH SCH (07:50)
[2022-09-10] MEDS: BENZTROPINE 2 MG TAB PO SCH ×2 (07:50→20:10)
[2022-09-10] MEDS: clonazePAM 0.5 MG TAB PO SCH ×2 (07:50→20:10)
[2022-09-10] MEDS: DIVALPROEX 500 MG TAB PO SCH ×2 (07:51→20:10)
[2022-09-10] MEDS: OLANZapine ORAL DISINTEGRATING TAB 5MG PO PRN (10:49)
[2022-09-10 16:19] VITALS: BP 146/82
[2022-09-10] MEDS: QUEtiapine FUMARATE 200 MG TAB PO SCH (20:10)
[2022-09-11] MEDS: NICOTINE POLACRILEX 2 MG GUM PO PRN ×3 (02:00→17:18)
[2022-09-11] MEDS: traZODone 50 MG TAB PO PRN (02:29)
[2022-09-11] MEDS: ADVAIR HFA 115/21MCG INHALER INH SCH ×2 (08:17→20:16)
[2022-09-11] MEDS: TIOTROPIUM INHALER/CAPSULE (SPIRIVA) INH SCH (08:18)
[2022-09-11] MEDS: clonazePAM 0.5 MG TAB PO SCH ×2 (08:19→20:16)
[2022-09-11] MEDS: DIVALPROEX 500 MG TAB PO SCH ×2 (08:19→20:16)
[2022-09-11] MEDS: BENZTROPINE 2 MG TAB PO SCH ×2 (08:19→20:16)
[2022-09-11] MEDS: ACETAMINOPHEN TAB 650MG DOSE (2X325MG) PO PRN (12:49)
[2022-09-11] MEDS: OLANZapine ORAL DISINTEGRATING TAB 5MG PO PRN (16:00)
[2022-09-11 16:22] VITALS: BP 140/76
[2022-09-11] MEDS: QUEtiapine FUMARATE 200 MG TAB PO SCH (20:16)
[2022-09-12] MEDS: traZODone 50 MG TAB PO PRN ×2 (00:27→20:29)
[2022-09-12] MEDS: ACETAMINOPHEN TAB 650MG DOSE (2X325MG) PO PRN ×2 (03:29→18:49)
[2022-09-12] MEDS: NICOTINE POLACRILEX 2 MG GUM PO PRN ×3 (06:13→23:29)
[2022-09-12 06:32] VITALS: BP 126/76
[2022-09-12] MEDS: DIVALPROEX 500 MG TAB PO SCH ×2 (08:42→20:08)
[2022-09-12] MEDS: ADVAIR HFA 115/21MCG INHALER INH SCH ×2 (08:42→20:07)
[2022-09-12] MEDS: clonazePAM 0.5 MG TAB PO SCH ×2 (08:42→20:07)
[2022-09-12] MEDS: TIOTROPIUM INHALER/CAPSULE (SPIRIVA) INH SCH (08:42)
[2022-09-12] MEDS: BENZTROPINE 2 MG TAB PO SCH ×2 (08:42→20:07)
[2022-09-12 16:21] VITALS: BP 130/74
[2022-09-12] MEDS: QUEtiapine FUMARATE 200 MG TAB PO SCH (20:07)
[2022-09-13 06:38] VITALS: BP 139/67
[2022-09-13] MEDS: NICOTINE POLACRILEX 2 MG GUM PO PRN (06:39)
[2022-09-13] MEDS: ADVAIR HFA 115/21MCG INHALER INH SCH (08:06)
[2022-09-13] MEDS: BENZTROPINE 2 MG TAB PO SCH (08:06)
[2022-09-13] MEDS: clonazePAM 0.5 MG TAB PO SCH (08:07)
[2022-09-13] MEDS: TIOTROPIUM INHALER/CAPSULE (SPIRIVA) INH SCH (08:08)
[2022-09-13] MEDS: DIVALPROEX 500 MG TAB PO SCH (08:09)
[2022-09-13] MEDS ORDERED: PALIPERIDONE 6MG ER TAB (INVEGA) PO SCH (09:00)
[2022-09-13] MEDS ORDERED: INVE6TAB3 PO (10:31)
[2022-09-13] MEDS ORDERED: NICO2GUM PO (10:31)
[2022-09-13] MEDS ORDERED: TRAZ-252 PO (10:31)
[2022-09-13] MEDS ORDERED: QUET200T2 PO (10:31)
[2022-09-13] MEDS ORDERED: INVE234I IM ×2 (10:31→10:32)
[2022-09-13] MEDS ORDERED: DEPA1TAB3 PO (10:31)
[2022-09-13] MEDS ORDERED: PALIPERIDONE PAL 234MG/1.5ML INJ (INVEGA)(FREE PSY INPT ONLY) IM ONE (11:00)
== END 2022-09-13 12:51 | disposition home or self-care (01) | DRG 885 ==
LOC: M ED 14:11 → M ED INP 17:56 → M PSY 19:58
PROVIDERS: ADMIT Psychiatry & Neurology Psychiatry; ATTEND Student in an Organized Health Care Education/Training Program
DX: F25.0 Schizoaffective disorder, bipolar type (principal); F17.210 Nicotine dependence, cigarettes, uncomplicated; I10 Essential (primary) hypertension; E78.5 Hyperlipidemia, unspecified; M54.9 Dorsalgia, unspecified; G89.29 Other chronic pain; G40.909 Epilepsy, unspecified, not intractable, without status epilepticus; J44.9 Chronic obstructive pulmonary disease, unspecified; Z20.822 Contact with and (suspected) exposure to COVID-19; Z79.899 Other long term (current) drug therapy; Z88.0 Allergy status to penicillin; Z88.6 Allergy status to analgesic agent; Z91.013 Allergy to seafood; F43.10 Post-traumatic stress disorder, unspecified; F90.9 Attention-deficit hyperactivity disorder, unspecified type; R74.01 Elevation of levels of liver transaminase levels

== ENCOUNTER 2023-05-15 09:10 | Emergency (ER) | payer MEDICARE, MEDICAID ==
[~2023-05-15] VITALS: Ht 175.3 cm; Wt 97.3 kg
[~2023-05-15 09:10] MED LIST changes: -BENZ-52 PO; +BENZ1TAB5 PO; +BENZ2TAB48 PO; -BENZ2TAB5 PO; +D200CAP PO; +DIVA500T94 PO; +INVE6TAB3 PO; +NICO2GUM PO; +VASC1CAP2 PO; +VENTAER INH
[2023-05-15] MEDS ORDERED: MED REC IN PROGRESS XX SCH ×2 (10:05→13:10)
[2023-05-15 10:07] LABS: HEMATOCRIT 45.8 % (42.0-52.0); HEMOGLOBIN 15.1 g/dl (13.5-17.5); MEAN CORPUSCULAR HEMOGLOBIN 30.1 pg (27.0-33.0); MEAN CORPUSCULAR VOLUME 91.4 fl (80.0-96.0); PLATELET COUNT, AUTOMATED 255 10^3/uL (150-450); RED BLOOD COUNT 5.01 10^6/uL (4.30-6.10)
[2023-05-15] MEDS ORDERED: MED REC CURRENTLY UNOBTAINABLE XX SCH (10:20)
[2023-05-15 10:24] LABS: ABG pH (ARTERIAL) 7.404 UNITS (7.350-7.450)
[2023-05-15 10:25] LABS: ABG BASE EXCESS -3.4 (-2.0-2.0); ABG HCO3 20.4 MMOL/L (22.0-26.0); ABG O2 SATURATION 93.3 % (95.0-99.0); ABG PARTIAL PRESSURE CO2 33.3 mmHg (35.0-45.0); ABG STANDARD HCO3 21.6 MMOL/L. (22.0-26.0); ABG TOTAL CO2 21.4 MMOL/L (22.0-29.0)
[2023-05-15 10:33] LABS: VALPROIC ACID (DEPAKOTE) 74.8 UG/ML (50.0-100.0)
[2023-05-15 10:34] LABS: SALICYLATE LEVEL < 3.0 MG/DL (<30)
[2023-05-15 10:35] LABS: ACETAMINOPHEN LEVEL < 2.0 UG/ML (10.0-20.0); ALBUMIN 3.2 G/DL (3.2-5.2); ALKALINE PHOSPHATASE 71 U/L (46-116); ALT/SGPT 107 U/L (7.0-40); AST/SGOT 82 U/L (<34); BILIRUBIN,DIRECT 0.1 MG/DL (<0.4); BILIRUBIN,TOTAL 0.3 MG/DL (0.3-1.2); BLOOD UREA NITROGEN 5 MG/DL (9-23); CALCIUM LEVEL 8.8 MG/DL (8.5-10.1); CARBON DIOXIDE LEVEL 29 MMOL/L (20-31); CHLORIDE LEVEL 103 MMOL/L (98-107); CREATININE FOR GFR 0.56 MG/DL (0.70-1.30); GLOMERULAR FILTRATION RATE > 60.0 (>60); GLUCOSE, FASTING 96 MG/DL (60-100); POTASSIUM SERUM 4.5 MMOL/L (3.5-5.1); SODIUM LEVEL 135 MMOL/L (136-145); TOTAL PROTEIN 6.4 G/DL (5.7-8.2)
[2023-05-15 10:37] LABS: THYROID STIMULATING HORMONE 1.002 uIU/ML (0.55-4.78)
[2023-05-15 11:13] LABS: ETHYL ALCOHOL (ETHANOL) 0.004 % (0.000-0.010)
[2023-05-15 11:34] LABS: AMPHETAMINES LEVEL URINE NEGATIVE (NEGATIVE); BARBITURATES URINE NEGATIVE (NEGATIVE); BENZODIAZEPINES URINE NEGATIVE (NEGATIVE); COCAINE METABOLITE URINE NEGATIVE (NEGATIVE); METHADONE URINE NEGATIVE (NEGATIVE); OPIATES URINE NEGATIVE (NEGATIVE); PHENCYCLIDINE URINE NEGATIVE (NEGATIVE)
[2023-05-15 11:35] LABS: CANNABINOIDS URINE NEGATIVE (NEGATIVE)
[2023-05-15] MEDS ORDERED: CLON1TAB8 PO (13:37)
[2023-05-15] MEDS ORDERED: PALI1TAB3 PO (13:37)
[2023-05-15] MEDS ORDERED: DEPA1TAB3 PO (13:37)
[2023-05-15] MEDS ORDERED: QUET200T2 PO (13:37)
[2023-05-15] MEDS ORDERED: INVE234I IM (13:37)
[2023-05-15] MEDS ORDERED: HOME MED LIST COMPLETE! XX SCH (13:40)
[2023-05-15] MEDS ORDERED: ALBUTEROL 90 MCG/ACT 8GM HFA INHALER INH PRN (18:55)
[2023-05-15] MEDS ORDERED: DIVALPROEX 500 MG TAB PO SCH (21:00)
[2023-05-15] MEDS ORDERED: QUEtiapine FUMARATE 200 MG TAB PO SCH (21:00)
[2023-05-15] MEDS ORDERED: clonazePAM 1 MG TAB PO SCH (21:00)
[2023-05-15] MEDS ORDERED: PALIPERIDONE 6MG ER TAB (INVEGA) PO SCH (21:00)
[2023-05-15] MEDS ORDERED: BENZTROPINE 2 MG TAB PO SCH (21:00)
[2023-05-15 21:11] VITALS: BP 159/84; TEMP 96.8; O2SAT 99
== END 2023-05-15 21:15 ==
LOC: M ED 09:10
DX: F25.0 Schizoaffective disorder, bipolar type (principal); Z79.899 Other long term (current) drug therapy; Z79.51 Long term (current) use of inhaled steroids; F17.200 Nicotine dependence, unspecified, uncomplicated

== ENCOUNTER → 2023-09-11 | Outpatient (REF) | payer MEDICARE, MEDICAID ==
[~2023-09-11] MED LIST changes: +CLON1TAB8 PO; +PALI1TAB3 PO
[2023-09-12 13:09] LABS: HEMOGLOBIN A1c 5.3 % (4.0-6.0)
[2023-09-12 13:16] LABS: ALBUMIN 3.7 G/DL (3.2-5.2); ALKALINE PHOSPHATASE 58 U/L (46-116); ALT/SGPT 88 U/L (7.0-40); AST/SGOT 61 U/L (<34); BILIRUBIN,TOTAL 0.5 MG/DL (0.3-1.2); BLOOD UREA NITROGEN 11 MG/DL (9-23); CARBON DIOXIDE LEVEL 27 MMOL/L (20-31); CHLORIDE LEVEL 100 MMOL/L (98-107); CHOLESTEROL LEVEL 217 MG/DL (<200); CHOLESTEROL RISK RATIO 8.93 (<5); CREATININE FOR GFR 0.48 MG/DL (0.70-1.30); GLOMERULAR FILTRATION RATE > 60.0 (>60); GLUCOSE, FASTING 78 MG/DL (60-100); HDL CHOLESTEROL 24.3 MG/DL (>40); LDL CHOLESTEROL 127.9 MG/DL (<100); NON-HDL-C 192.7 MG/DL; SODIUM LEVEL 129 MMOL/L (136-145); TOTAL PROTEIN 6.9 G/DL (5.7-8.2); TRIGLYCERIDES LEVEL 324 MG/DL (<150)
[2023-09-12 13:21] LABS: THYROID STIMULATING HORMONE 0.895 uIU/ML (0.55-4.78)
== END ==
LOC: M LAB REF 11:55
PROVIDERS: ATTEND Pediatrics
DX: E78.5 Hyperlipidemia, unspecified (principal); K76.0 Fatty (change of) liver, not elsewhere classified; E66.3 Overweight; Z79.899 Other long term (current) drug therapy

== ENCOUNTER 2023-09-13 14:32 | Emergency (ER) | payer MEDICARE, MEDICAID ==
[~2023-09-13] VITALS: Ht 175.3 cm; Wt 100.2 kg
[2023-09-13 15:39] LABS: BLOOD UREA NITROGEN 10 MG/DL (9-23); CALCIUM LEVEL 8.9 MG/DL (8.5-10.1); CARBON DIOXIDE LEVEL 30 MMOL/L (20-31); CHLORIDE LEVEL 101 MMOL/L (98-107); CREATININE FOR GFR 0.47 MG/DL (0.70-1.30); GLOMERULAR FILTRATION RATE > 60.0 (>60); GLUCOSE, FASTING 92 MG/DL (60-100); SODIUM LEVEL 133 MMOL/L (136-145)
[2023-09-13 18:58] VITALS: BP 136/75; TEMP 98.7; O2SAT 95
== END 2023-09-13 21:11 | disposition home or self-care (01) ==
LOC: M ED 14:32
DX: Z04.89 Encounter for examination and observation for other specified reasons (principal); R79.9 Abnormal finding of blood chemistry, unspecified; I10 Essential (primary) hypertension; J44.9 Chronic obstructive pulmonary disease, unspecified; F31.78 Bipolar disorder, in full remission, most recent episode mixed; F90.9 Attention-deficit hyperactivity disorder, unspecified type; F25.9 Schizoaffective disorder, unspecified; Z88.0 Allergy status to penicillin; Z88.8 Allergy status to other drugs, medicaments and biological substances; Z91.013 Allergy to seafood; Z79.51 Long term (current) use of inhaled steroids; Z79.899 Other long term (current) drug therapy

== ENCOUNTER → 2023-10-18 | Outpatient (REF) | payer MEDICARE, MEDICAID ==
[2023-10-18 18:42] LABS: BLOOD UREA NITROGEN 10 MG/DL (9-23); CALCIUM LEVEL 9.2 MG/DL (8.5-10.1); CARBON DIOXIDE LEVEL 28 MMOL/L (20-31); CHLORIDE LEVEL 101 MMOL/L (98-107); CREATININE FOR GFR 0.61 MG/DL (0.70-1.30); GLOMERULAR FILTRATION RATE > 60.0 (>60); GLUCOSE, FASTING 82 MG/DL (60-100); POTASSIUM SERUM 5.1 MMOL/L (3.5-5.1); SODIUM LEVEL 133 MMOL/L (136-145)
== END ==
LOC: M LAB REF 16:18
PROVIDERS: ATTEND Pediatrics
DX: E87.1 Hypo-osmolality and hyponatremia (principal)

== ENCOUNTER → 2023-11-06 | Outpatient (CLI) | payer MEDICARE, MEDICAID ==
[2023-11-06 11:10] LABS: BASO % 0.3 % (0.0-1.0); EOS # 0.2 10^3/uL (0.0-0.5); EOS % 1.9 % (0.0-3.0); HEMATOCRIT 41.1 % (42.0-52.0); HEMOGLOBIN 14.3 g/dl (13.5-17.5); LYMPH # 3.4 10^3/uL (1.5-5.0); LYMPH % 26.7 % (24.0-44.0); MEAN CORPUSCULAR HEMOGLOBIN 31.7 pg (27.0-33.0); MEAN CORPUSCULAR HGB CONC 34.8 g/dl (32.0-36.5); MEAN CORPUSCULAR VOLUME 91.1 fl (80.0-96.0); MONO # 1.1 10^3/uL (0.0-0.8); MONO % 8.8 % (2.0-8.0); NEUTROPHILS # 7.8 10^3/uL (1.5-8.5); NEUTROPHILS % 60.9 % (36.0-66.0); PLATELET COUNT, AUTOMATED 278 10^3/uL (150-450); RED BLOOD COUNT 4.51 10^6/uL (4.30-6.10); WHITE BLOOD COUNT 12.8 10^3/uL (4.0-10.0)
[2023-11-06 11:36] LABS: ALBUMIN 3.3 G/DL (3.2-5.2); ALKALINE PHOSPHATASE 57 U/L (46-116); ALT/SGPT 109 U/L (7.0-40); AST/SGOT 76 U/L (<34); BILIRUBIN,TOTAL 0.3 MG/DL (0.3-1.2); BLOOD UREA NITROGEN 12 MG/DL (9-23); CARBON DIOXIDE LEVEL 25 MMOL/L (20-31); CHLORIDE LEVEL 103 MMOL/L (98-107); CREATININE FOR GFR 0.42 MG/DL (0.70-1.30); GLOMERULAR FILTRATION RATE > 60.0 (>60); GLUCOSE, FASTING 87 MG/DL (60-100); POTASSIUM SERUM 4.5 MMOL/L (3.5-5.1); SODIUM LEVEL 131 MMOL/L (136-145); TOTAL PROTEIN 6.2 G/DL (5.7-8.2)
== END ==
LOC: M LAB 10:28
PROVIDERS: ATTEND Student in an Organized Health Care Education/Training Program
DX: F31.9 Bipolar disorder, unspecified (principal)

== ENCOUNTER → 2023-12-20 | Outpatient (CLI) | payer MEDICARE, MEDICAID ==
[2023-12-20 12:35] LABS: BASO # 0.1 10^3/uL (0.0-0.2); BASO % 0.5 % (0.0-1.0); EOS # 0.3 10^3/uL (0.0-0.5); EOS % 3.2 % (0.0-3.0); HEMATOCRIT 42.9 % (42.0-52.0); HEMOGLOBIN 14.5 g/dl (13.5-17.5); LYMPH # 2.5 10^3/uL (1.5-5.0); LYMPH % 25.9 % (24.0-44.0); MEAN CORPUSCULAR HEMOGLOBIN 31.7 pg (27.0-33.0); MEAN CORPUSCULAR HGB CONC 33.8 g/dl (32.0-36.5); MEAN CORPUSCULAR VOLUME 93.9 fl (80.0-96.0); MONO # 0.7 10^3/uL (0.0-0.8); MONO % 7.2 % (2.0-8.0); NEUTROPHILS # 5.8 10^3/uL (1.5-8.5); NEUTROPHILS % 61.2 % (36.0-66.0); PLATELET COUNT, AUTOMATED 268 10^3/uL (150-450); RED BLOOD COUNT 4.57 10^6/uL (4.30-6.10); WHITE BLOOD COUNT 9.5 10^3/uL (4.0-10.0)
[2023-12-20 12:50] LABS: VALPROIC ACID (DEPAKOTE) 90.8 UG/ML (50.0-100.0)
[2023-12-20 12:52] LABS: ALBUMIN 3.1 G/DL (3.2-5.2); ALKALINE PHOSPHATASE 57 U/L (46-116); ALT/SGPT 118 U/L (7.0-40); AST/SGOT 127 U/L (<34); BILIRUBIN,TOTAL 0.2 MG/DL (0.3-1.2); BLOOD UREA NITROGEN 6 MG/DL (9-23); CALCIUM LEVEL 9.2 MG/DL (8.5-10.1); CARBON DIOXIDE LEVEL 25 MMOL/L (20-31); CHLORIDE LEVEL 105 MMOL/L (98-107); CREATININE FOR GFR 0.42 MG/DL (0.70-1.30); GLOMERULAR FILTRATION RATE > 60.0 (>60); GLUCOSE, FASTING 97 MG/DL (60-100); POTASSIUM SERUM 4.4 MMOL/L (3.5-5.1); SODIUM LEVEL 138 MMOL/L (136-145); TOTAL PROTEIN 6.2 G/DL (5.7-8.2)
[2023-12-20 13:56] LABS: LITHIUM LEVEL 0.43 MMOL/L (1.0-1.20)
== END ==
LOC: M LAB 11:12
PROVIDERS: ATTEND Student in an Organized Health Care Education/Training Program
DX: F31.9 Bipolar disorder, unspecified (principal)

== ENCOUNTER → 2024-03-11 | Outpatient (REF) | payer MEDICARE, MEDICAID ==
[2024-03-11 17:44] LABS: ALBUMIN 3.5 G/DL (3.2-5.2); ALKALINE PHOSPHATASE 67 U/L (46-116); ALT/SGPT 114 U/L (7.0-40); AST/SGOT 56 U/L (<34); BASO # 0.1 10^3/uL (0.0-0.2); BASO % 0.5 % (0.0-1.0); BILIRUBIN,DIRECT < 0.1 MG/DL (<0.4); BILIRUBIN,TOTAL 0.3 MG/DL (0.3-1.2); CHOLESTEROL LEVEL 228 MG/DL (<200); CHOLESTEROL RISK RATIO 10.65 (<5); EOS # 0.3 10^3/uL (0.0-0.5); EOS % 3.2 % (0.0-3.0); HDL CHOLESTEROL 21.4 MG/DL (>40); HEMATOCRIT 49.9 % (42.0-52.0); HEMOGLOBIN 16.4 g/dl (13.5-17.5); LYMPH # 2.6 10^3/uL (1.5-5.0); LYMPH % 27.8 % (24.0-44.0); MEAN CORPUSCULAR HEMOGLOBIN 31.7 pg (27.0-33.0); MEAN CORPUSCULAR HGB CONC 32.9 g/dl (32.0-36.5); MEAN CORPUSCULAR VOLUME 96.3 fl (80.0-96.0); MONO # 0.7 10^3/uL (0.0-0.8); MONO % 7.7 % (2.0-8.0); NEUTROPHILS # 5.5 10^3/uL (1.5-8.5); NEUTROPHILS % 59.5 % (36.0-66.0); NON-HDL-C 206.6 MG/DL; PLATELET COUNT, AUTOMATED 262 10^3/uL (150-450); RED BLOOD COUNT 5.18 10^6/uL (4.30-6.10); TOTAL PROTEIN 6.9 G/DL (5.7-8.2); TRIGLYCERIDES LEVEL 426 MG/DL (<150); WHITE BLOOD COUNT 9.3 10^3/uL (4.0-10.0)
[2024-03-11 17:47] LABS: THYROID STIMULATING HORMONE 1.363 uIU/ML (0.55-4.78)
[2024-03-11 17:48] LABS: LITHIUM LEVEL 0.62 MMOL/L (1.0-1.20)
== END ==
LOC: M LAB REF 16:30
PROVIDERS: ATTEND Pediatrics
DX: J44.9 Chronic obstructive pulmonary disease, unspecified (principal); K76.0 Fatty (change of) liver, not elsewhere classified; E66.3 Overweight; E78.5 Hyperlipidemia, unspecified; F25.9 Schizoaffective disorder, unspecified; Z79.899 Other long term (current) drug therapy

== ENCOUNTER 2024-05-12 02:21 | Emergency (ER) | payer MEDICARE, MEDICAID ==
[~2024-05-12] VITALS: Ht 175.3 cm; Wt 103.1 kg
[2024-05-12 02:21] VITALS: BP 122/82; TEMP 97; O2SAT 99
[2024-05-13] MEDS ORDERED: LITH300C PO (07:22)
[2024-05-13] MEDS ORDERED: OMEG-28 (07:22)
[2024-05-13] MEDS ORDERED: IBUP1TAB6 PO (15:53)
[2024-05-13] MEDS ORDERED: LIDO5DIS41 TOP (15:53)
[2024-05-13] MEDS ORDERED: CYCL-707 PO (15:53)
== END 2024-05-12 03:08 | disposition left against medical advice (07) ==
LOC: M ED 02:21
DX: Z53.21 Procedure and treatment not carried out due to patient leaving prior to being seen by health care provider (principal)

== ENCOUNTER 2024-05-12 05:38 | Emergency (ER) | payer MEDICARE, MEDICAID ==
[~2024-05-12] VITALS: Ht 175.3 cm; Wt 103.1 kg
[2024-05-12 05:38] VITALS: BP 145/90; TEMP 97.1; O2SAT 100
[2024-05-13] MEDS ORDERED: OMEG-28 (07:22)
[2024-05-13] MEDS ORDERED: LITH300C PO (07:22)
[2024-05-13] MEDS ORDERED: IBUP1TAB6 PO (15:53)
[2024-05-13] MEDS ORDERED: CYCL-707 PO (15:53)
[2024-05-13] MEDS ORDERED: LIDO5DIS41 TOP (15:53)
== END 2024-05-12 05:48 | disposition left against medical advice (07) ==
LOC: M ED 05:38
DX: Z53.21 Procedure and treatment not carried out due to patient leaving prior to being seen by health care provider (principal)

== ENCOUNTER 2024-05-12 21:06 | Emergency (ER) | payer MEDICARE, MEDICAID ==
[~2024-05-12] VITALS: Ht 175.3 cm; Wt 102.7 kg
[2024-05-12 21:13] VITALS: BP 117/75; TEMP 97.6; O2SAT 97
[2024-05-13] MEDS ORDERED: OMEG-28 (07:22)
[2024-05-13] MEDS ORDERED: LITH300C PO (07:22)
[2024-05-13] MEDS ORDERED: LIDO5DIS41 TOP (15:53)
[2024-05-13] MEDS ORDERED: CYCL-707 PO (15:53)
[2024-05-13] MEDS ORDERED: IBUP1TAB6 PO (15:53)
== END 2024-05-12 21:28 | disposition left against medical advice (07) ==
LOC: M ED 21:06
DX: Z53.21 Procedure and treatment not carried out due to patient leaving prior to being seen by health care provider (principal)

== ENCOUNTER 2024-05-13 01:30 | Emergency (ER) | payer MEDICARE, MEDICAID ==
[~2024-05-13] VITALS: Ht 175.3 cm; Wt 102.7 kg
[2024-05-13 05:04] VITALS: BP 136/103; TEMP 96.8; O2SAT 99
[2024-05-13] MEDS ORDERED: OMEG-28 (07:22)
[2024-05-13] MEDS ORDERED: LITH300C PO (07:22)
[2024-05-13] MEDS ORDERED: LIDO5DIS41 TOP (15:53)
[2024-05-13] MEDS ORDERED: CYCL-707 PO (15:53)
[2024-05-13] MEDS ORDERED: IBUP1TAB6 PO (15:53)
== END 2024-05-13 05:20 | disposition home or self-care (01) ==
LOC: M ED 01:30
DX: M54.9 Dorsalgia, unspecified (principal)

== ENCOUNTER 2024-05-13 07:12 | Emergency (ER) | payer MEDICARE, MEDICAID ==
[~2024-05-13] VITALS: Ht 175.3 cm; Wt 103.7 kg
[2024-05-13 07:12] VITALS: BP 138/90; TEMP 97.4; O2SAT 96
[2024-05-13] MEDS ORDERED: LITH300C PO (07:22)
[2024-05-13] MEDS ORDERED: OMEG-28 (07:22)
[2024-05-13] MEDS ORDERED: LIDO5DIS41 TOP (15:53)
[2024-05-13] MEDS ORDERED: CYCL-707 PO (15:53)
[2024-05-13] MEDS ORDERED: IBUP1TAB6 PO (15:53)
== END 2024-05-13 07:36 | disposition left against medical advice (07) ==
LOC: M ED 07:12
DX: Z53.21 Procedure and treatment not carried out due to patient leaving prior to being seen by health care provider (principal)

== ENCOUNTER 2024-05-13 14:03 | Inpatient (IN) | payer MEDICARE, MEDICAID ==
[~2024-05-13] VITALS: Ht 175.3 cm; Wt 104.1 kg
[~2024-05-13 14:03] MED LIST changes: +LITH300C PO; +OMEG-28
[2024-05-13] MEDS ORDERED: LIDO5DIS41 TOP (15:53)
[2024-05-13] MEDS ORDERED: CYCL-707 PO (15:53)
[2024-05-13] MEDS ORDERED: IBUP1TAB6 PO (15:53)
[2024-05-13] MEDS ORDERED: HOME MED LIST COMPLETE! XX SCH (15:55)
[2024-05-13 16:19] LABS: HEMOGLOBIN 14.2 g/dl (13.5-17.5); MEAN CORPUSCULAR HEMOGLOBIN 31.3 pg (27.0-33.0); MEAN CORPUSCULAR HGB CONC 33.8 g/dl (32.0-36.5); MEAN CORPUSCULAR VOLUME 92.5 fl (80.0-96.0); PLATELET COUNT, AUTOMATED 252 10^3/uL (150-450); RED BLOOD COUNT 4.54 10^6/uL (4.30-6.10); WHITE BLOOD COUNT 8.7 10^3/uL (4.0-10.0)
[2024-05-13 16:51] LABS: VALPROIC ACID (DEPAKOTE) 86.9 UG/ML (50.0-100.0)
[2024-05-13 16:52] LABS: ETHYL ALCOHOL (ETHANOL) < 0.003 % (0.000-0.010)
[2024-05-13 16:54] LABS: ALBUMIN 3.4 G/DL (3.2-5.2); ALKALINE PHOSPHATASE 71 U/L (46-116); ALT/SGPT 161 U/L (7.0-40); AST/SGOT 157 U/L (<34); BILIRUBIN,DIRECT 0.2 MG/DL (<0.4); BILIRUBIN,TOTAL 0.6 MG/DL (0.3-1.2); BLOOD UREA NITROGEN 8 MG/DL (9-23); CALCIUM LEVEL 9.3 MG/DL (8.5-10.1); CARBON DIOXIDE LEVEL 26 MMOL/L (20-31); CHLORIDE LEVEL 107 MMOL/L (98-107); CREATININE FOR GFR 0.48 MG/DL (0.70-1.30); GLOMERULAR FILTRATION RATE > 60.0 (>60); GLUCOSE, FASTING 90 MG/DL (60-100); LITHIUM LEVEL 0.61 MMOL/L (1.0-1.20); POTASSIUM SERUM 4.4 MMOL/L (3.5-5.1); SALICYLATE LEVEL < 3.0 MG/DL (<30); SODIUM LEVEL 136 MMOL/L (136-145); TOTAL PROTEIN 6.6 G/DL (5.7-8.2)
[2024-05-13 18:06] LABS: AMPHETAMINES LEVEL URINE NEGATIVE (NEGATIVE)
[2024-05-13 18:07] LABS: BARBITURATES URINE NEGATIVE (NEGATIVE); BENZODIAZEPINES URINE NEGATIVE (NEGATIVE); CANNABINOIDS URINE NEGATIVE (NEGATIVE); COCAINE METABOLITE URINE NEGATIVE (NEGATIVE); METHADONE URINE NEGATIVE (NEGATIVE); OPIATES URINE NEGATIVE (NEGATIVE); PHENCYCLIDINE URINE NEGATIVE (NEGATIVE)
[2024-05-13] MEDS ORDERED: MOM 30ML SUSPENSION UDC PO PRN (18:35)
[2024-05-13] MEDS: LITHIUM CARBONATE 300 MG CAP PO SCH (22:55)
[2024-05-13] MEDS: clonazePAM 1 MG TAB PO SCH (22:55)
[2024-05-13] MEDS: DIVALPROEX 500 MG TAB PO SCH (22:55)
[2024-05-14 06:13] VITALS: BP 138/63; TEMP 97.8; O2SAT 97
[2024-05-14] MEDS: TIOTROPIUM INHALER/CAPSULE (SPIRIVA) INH SCH (12:20)
[2024-05-14] MEDS: BUDESONIDE 180MCG INHALER (PULMICORT FLEXHALER) INH SCH (13:26)
[2024-05-14 15:24] VITALS: BP 140/76; TEMP 97.1; O2SAT 98
[2024-05-14] MEDS: QUEtiapine FUMARATE 200 MG TAB PO SCH (20:27)
[2024-05-14] MEDS ORDERED: ADVAIR HFA 115/21MCG INHALER INH SCH (21:00)
[2024-05-15 06:30] VITALS: BP 151/70; TEMP 96.2; O2SAT 99
[2024-05-15 15:30] VITALS: BP 140/84; TEMP 98.4; O2SAT 97
[2024-05-15] MEDS: traZODone 50 MG TAB PO PRN (20:27)
[2024-05-16] MEDS: ACETAMINOPHEN TAB 650MG DOSE (2X325MG) PO PRN (01:30)
[2024-05-16] MEDS: MAALOX 30 ML SUSP *UDC PO PRN (01:53)
[2024-05-16 06:31] VITALS: BP 142/79; TEMP 97.2
[2024-05-16 16:32] VITALS: BP 150/79; TEMP 96.9; O2SAT 100
[2024-05-16 16:38] LABS: HEPATITIS B SURFACE ANTIGEN NEGATIVE (NEGATIVE)
[2024-05-16 16:58] LABS: HEPATITIS B CORE ANTIBODY IGM NEGATIVE (NEGATIVE); HEPATITIS C VIRUS ABY INDEX < 0.02 INDEX (<0.8)
[2024-05-17] MEDS: diphenhydrAMINE 25MG CAP PO PRN (04:03)
[2024-05-17 06:13] VITALS: BP 170/82; TEMP 97.7; O2SAT 96
[2024-05-17] MEDS: NICOTINE 21MG/24HR 1 EA TRANSDERMAL TD SCH (09:30)
[2024-05-17 16:41] VITALS: BP 140/94; TEMP 97.1; O2SAT 97
[2024-05-17] MEDS: LITHIUM CARBONATE 150 MG CAP PO SCH (20:22)
[2024-05-18 06:28] VITALS: BP 146/96; TEMP 97.1; O2SAT 95
[2024-05-18 17:11] VITALS: BP 138/78; TEMP 97.2; O2SAT 97
[2024-05-18] MEDS: LITHIUM CARBONATE 300 MG CAP PO SCH (20:03)
[2024-05-18] MEDS: DIVALPROEX 500 MG TAB PO SCH (20:03)
[2024-05-18] MEDS: clonazePAM 1 MG TAB PO SCH (20:04)
[2024-05-19] MEDS ORDERED: UNRESOLVED CLARIFICATION ENTRY XX SCH (00:01)
[2024-05-19 06:20] VITALS: BP 144/89; TEMP 98.6; O2SAT 98
[2024-05-19 15:37] VITALS: BP 139/88; TEMP 97; O2SAT 95
[2024-05-20 06:14] VITALS: BP 149/99; TEMP 96.9; O2SAT 100
[2024-05-20 17:10] VITALS: BP 138/91; TEMP 97; O2SAT 98
[2024-05-20] MEDS: QUEtiapine FUMARATE 100 MG TAB PO SCH (20:12)
[2024-05-21 06:32] VITALS: BP 128/78; TEMP 96.9; O2SAT 98
== END 2024-05-21 11:35 | disposition home or self-care (01) | DRG 885 ==
LOC: M ED 14:03 → M ED INP 18:34 → M PSY 23:27
PROVIDERS: ADMIT Psychiatry & Neurology Psychiatry; ATTEND Psychiatry & Neurology Psychiatry
DX: F25.9 Schizoaffective disorder, unspecified (principal); F17.210 Nicotine dependence, cigarettes, uncomplicated; K76.0 Fatty (change of) liver, not elsewhere classified; J44.9 Chronic obstructive pulmonary disease, unspecified; E78.5 Hyperlipidemia, unspecified; E55.9 Vitamin D deficiency, unspecified; Z79.899 Other long term (current) drug therapy; Z88.0 Allergy status to penicillin; Z88.6 Allergy status to analgesic agent; Z91.013 Allergy to seafood; R33.9 Retention of urine, unspecified; R35.0 Frequency of micturition

== ENCOUNTER 2024-05-25 02:38 | Emergency (ER) | payer MEDICARE, MEDICAID ==
[~2024-05-25] VITALS: Ht 175.3 cm; Wt 99.8 kg
[2024-05-25 02:38] VITALS: BP 137/87; TEMP 97; O2SAT 96
[~2024-05-25 02:38] MED LIST changes: +CYCL-707 PO; +IBUP1TAB6 PO; +LIDO5DIS41 TOP
[2024-05-25] MEDS ORDERED: QUET300T2 PO (14:33)
[2024-05-25] MEDS ORDERED: ALBU8.5H INH (14:43)
== END 2024-05-25 04:53 | disposition left against medical advice (07) ==
LOC: M ED 02:38
DX: Z53.21 Procedure and treatment not carried out due to patient leaving prior to being seen by health care provider (principal)

== ENCOUNTER 2024-05-25 11:04 | Inpatient (IN) | payer MEDICAID, MEDICARE, OTHER ==
[~2024-05-25] VITALS: Ht 175.3 cm; Wt 100.3 kg
[~2024-05-25 11:04] MED LIST changes: +CLIN150C17 PO; +DICL100G10 TOP; +DIVA250T67 PO; +FISH1CAP26 PO; +METH-1164 PO; +NICO21PAT TOP; +TRAZ-186 PO
[2024-05-25 11:55] LABS: HEMOGLOBIN 14.6 g/dl (13.5-17.5); MEAN CORPUSCULAR HEMOGLOBIN 31.5 pg (27.0-33.0); MEAN CORPUSCULAR VOLUME 92.7 fl (80.0-96.0); PLATELET COUNT, AUTOMATED 300 10^3/uL (150-450); RED BLOOD COUNT 4.64 10^6/uL (4.30-6.10); WHITE BLOOD COUNT 9.6 10^3/uL (4.0-10.0)
[2024-05-25 12:06] LABS: AMPHETAMINES LEVEL URINE NEGATIVE (NEGATIVE)
[2024-05-25 12:08] LABS: ETHYL ALCOHOL (ETHANOL) < 0.003 % (0.000-0.010)
[2024-05-25 12:09] LABS: SALICYLATE LEVEL < 3.0 MG/DL (<30)
[2024-05-25 12:10] LABS: ALBUMIN 3.7 G/DL (3.2-5.2); ALKALINE PHOSPHATASE 78 U/L (46-116); ALT/SGPT 163 U/L (7.0-40); AST/SGOT 178 U/L (<34); BILIRUBIN,DIRECT 0.1 MG/DL (<0.4); BILIRUBIN,TOTAL 0.4 MG/DL (0.3-1.2); BLOOD UREA NITROGEN 12 MG/DL (9-23); CALCIUM LEVEL 10.1 MG/DL (8.5-10.1); CANNABINOIDS URINE NEGATIVE (NEGATIVE); CARBON DIOXIDE LEVEL 24 MMOL/L (20-31); CHLORIDE LEVEL 105 MMOL/L (98-107); COCAINE METABOLITE URINE NEGATIVE (NEGATIVE); GLOMERULAR FILTRATION RATE > 60.0 (>60); GLUCOSE, FASTING 91 MG/DL (60-100); METHADONE URINE NEGATIVE (NEGATIVE); OPIATES URINE NEGATIVE (NEGATIVE); PHENCYCLIDINE URINE NEGATIVE (NEGATIVE); POTASSIUM SERUM 4.4 MMOL/L (3.5-5.1); SODIUM LEVEL 137 MMOL/L (136-145); TOTAL PROTEIN 7.3 G/DL (5.7-8.2)
[2024-05-25 12:11] LABS: BARBITURATES URINE NEGATIVE (NEGATIVE); BENZODIAZEPINES URINE NEGATIVE (NEGATIVE); THYROID STIMULATING HORMONE 1.907 uIU/ML (0.55-4.78)
[2024-05-25] MEDS ORDERED: IBUPROFEN 400MG TAB PO PRN (14:20)
[2024-05-25] MEDS ORDERED: traZODone 50 MG TAB PO PRN (14:20)
[2024-05-25] MEDS ORDERED: ACETAMINOPHEN TAB 650MG DOSE (2X325MG) PO PRN (14:20)
[2024-05-25] MEDS ORDERED: MOM 30ML SUSPENSION UDC PO PRN (14:20)
[2024-05-25] MEDS ORDERED: diphenhydrAMINE 25MG CAP PO PRN (14:20)
[2024-05-25] MEDS ORDERED: MAALOX 30 ML SUSP *UDC PO PRN (14:20)
[2024-05-25] MEDS ORDERED: QUET300T2 PO (14:33)
[2024-05-25] MEDS ORDERED: ALBU8.5H INH (14:43)
[2024-05-25] MEDS ORDERED: HOME MED LIST COMPLETE! XX SCH (14:45)
[2024-05-26] MEDS ORDERED: MOM 30ML SUSPENSION UDC PO PRN (12:45)
[2024-05-26 14:33] VITALS: BP 144/90; TEMP 97.6; O2SAT 97
[2024-05-26] MEDS: ACETAMINOPHEN TAB 650MG DOSE (2X325MG) PO PRN (17:28)
[2024-05-26] MEDS: diphenhydrAMINE 25MG CAP PO PRN (19:58)
[2024-05-26] MEDS: LITHIUM CARBONATE 300 MG CAP PO SCH (20:34)
[2024-05-26] MEDS: traZODone 50 MG TAB PO PRN (20:35)
[2024-05-26] MEDS: clonazePAM 1 MG TAB PO SCH (20:35)
[2024-05-26] MEDS: QUEtiapine FUMARATE 100 MG TAB PO SCH (20:35)
[2024-05-26] MEDS: DIVALPROEX 500 MG TAB PO SCH (20:42)
[2024-05-26] MEDS ORDERED: DIVALPROEX 500 MG TAB PO SCH (21:00)
[2024-05-27] MEDS: MAALOX 30 ML SUSP *UDC PO PRN (01:35)
[2024-05-27] MEDS: NICOTINE 21MG/24HR 1 EA TRANSDERMAL TD SCH (10:25)
[2024-05-27 15:38] VITALS: BP 132/98; TEMP 98; O2SAT 98
[2024-05-27] MEDS ORDERED: ALBUTEROL 90 MCG/ACT 8GM HFA INHALER INH PRN (18:10)
[2024-05-27] MEDS: ADVAIR HFA 115/21MCG INHALER INH SCH (20:17)
[2024-05-27] MEDS: QUEtiapine FUMARATE 200 MG TAB PO SCH (20:17)
[2024-05-28 06:36] VITALS: BP 123/73; TEMP 98.2; O2SAT 97
[2024-05-28 16:20] VITALS: BP 139/92; TEMP 98.5; O2SAT 99
[2024-05-29 16:24] VITALS: BP 122/80; TEMP 97.8; O2SAT 99
[2024-05-30 15:53] VITALS: BP 138/90; TEMP 98.1; O2SAT 100
[2024-05-31 06:23] VITALS: BP 140/84; TEMP 97.1; O2SAT 98
[2024-05-31 15:58] VITALS: BP 142/92; TEMP 97.7; O2SAT 96
[2024-06-01] MEDS: LIDOCAINE 5% (LIDODERM) PATCH TOP PRN (09:10)
[2024-06-01 12:16] LABS: ALBUMIN 3.4 G/DL (3.2-5.2); ALKALINE PHOSPHATASE 73 U/L (46-116); ALT/SGPT 100 U/L (7.0-40); AST/SGOT 72 U/L (<34); BILIRUBIN,TOTAL 0.3 MG/DL (0.3-1.2); BLOOD UREA NITROGEN 7 MG/DL (9-23); CALCIUM LEVEL 8.9 MG/DL (8.5-10.1); CARBON DIOXIDE LEVEL 27 MMOL/L (20-31); CHLORIDE LEVEL 103 MMOL/L (98-107); CREATININE FOR GFR 0.54 MG/DL (0.70-1.30); GLOMERULAR FILTRATION RATE > 60.0 (>60); GLUCOSE, FASTING 81 MG/DL (60-100); POTASSIUM SERUM 4.4 MMOL/L (3.5-5.1); SODIUM LEVEL 133 MMOL/L (136-145); TOTAL PROTEIN 6.8 G/DL (5.7-8.2)
[2024-06-01 15:52] VITALS: BP 137/84; TEMP 98.1; O2SAT 97
[2024-06-02 06:16] VITALS: BP 156/86; TEMP 97.3; O2SAT 97
[2024-06-02 10:20] LABS: VALPROIC ACID (DEPAKOTE) 54.7 UG/ML (50.0-100.0)
[2024-06-02 10:22] LABS: LITHIUM LEVEL 0.33 MMOL/L (1.0-1.20)
[2024-06-02 15:37] VITALS: BP 132/84; TEMP 98; O2SAT 95
[2024-06-03 08:37] VITALS: BP 137/72; TEMP 97.7; O2SAT 96
[2024-06-03 15:42] VITALS: BP 130/80; TEMP 98.3; O2SAT 100
[2024-06-04 06:17] VITALS: BP 118/78; TEMP 97.4; O2SAT 97
[2024-06-04 14:33] VITALS: BP 149/76; TEMP 97.6; O2SAT 100
[2024-06-05 15:01] VITALS: BP 144/82; TEMP 98.3; O2SAT 98
[2024-06-06 14:39] VITALS: BP 158/84; TEMP 98; O2SAT 99
[2024-06-07 15:45] VITALS: BP 146/88; TEMP 98; O2SAT 98
[2024-06-08] MEDS: QUEtiapine FUMARATE 200 MG TAB PO ONE (00:01)
[2024-06-08 06:30] VITALS: BP 138/88; TEMP 96.8; O2SAT 99
[2024-06-08 09:46] LABS: ALBUMIN 3.6 G/DL (3.2-5.2); ALKALINE PHOSPHATASE 71 U/L (46-116); ALT/SGPT 101 U/L (7.0-40); AST/SGOT 79 U/L (<34); BILIRUBIN,TOTAL 0.3 MG/DL (0.3-1.2); BLOOD UREA NITROGEN 7 MG/DL (9-23); CALCIUM LEVEL 9.1 MG/DL (8.5-10.1); CARBON DIOXIDE LEVEL 26 MMOL/L (20-31); CHLORIDE LEVEL 101 MMOL/L (98-107); CREATININE FOR GFR 0.48 MG/DL (0.70-1.30); GLOMERULAR FILTRATION RATE > 60.0 (>60); GLUCOSE, FASTING 99 MG/DL (60-100); POTASSIUM SERUM 4.3 MMOL/L (3.5-5.1); SODIUM LEVEL 133 MMOL/L (136-145); TOTAL PROTEIN 6.8 G/DL (5.7-8.2)
[2024-06-08 14:31] VITALS: BP 120/70; TEMP 98.1; O2SAT 97
[2024-06-09 06:17] VITALS: BP 120/80; TEMP 97.6; O2SAT 99
[2024-06-09] MEDS ORDERED: PALIPERIDONE PAL 234MG/1.5ML INJ (INVEGA)(FREE PSY INPT ONLY) IM SCH (09:00)
[2024-06-09] MEDS: PALIPERIDONE PAL 234MG/1.5ML INJ (INVEGA)(FREE PSY INPT ONLY) IM ONE (10:12)
[2024-06-09 15:27] VITALS: BP 130/80; TEMP 97.8; O2SAT 97
[2024-06-10 06:20] VITALS: BP 130/86; TEMP 98.6; O2SAT 98
== END 2024-06-10 15:24 | disposition home or self-care (01) | DRG 885 ==
LOC: M ED 11:04 → M ED INP 14:19 → M PSY 05-26 14:04
PROVIDERS: ADMIT Psychiatry & Neurology Psychiatry; ATTEND Psychiatry & Neurology Psychiatry
DX: F25.9 Schizoaffective disorder, unspecified (principal); K76.0 Fatty (change of) liver, not elsewhere classified; J44.9 Chronic obstructive pulmonary disease, unspecified; E78.5 Hyperlipidemia, unspecified; Z79.899 Other long term (current) drug therapy; Z88.0 Allergy status to penicillin; Z88.6 Allergy status to analgesic agent; Z91.013 Allergy to seafood

== ENCOUNTER 2024-06-11 04:47 | Emergency (ER) | payer MEDICARE, MEDICAID ==
[~2024-06-11] VITALS: Ht 175.3 cm; Wt 98.8 kg
[~2024-06-11 04:47] MED LIST changes: +QUET300T2 PO
[2024-06-11 04:50] VITALS: BP 124/73; TEMP 97; O2SAT 96
== END 2024-06-11 05:10 | disposition left against medical advice (07) ==
LOC: MERGE 04:47 → M ED 04:47
DX: Z53.21 Procedure and treatment not carried out due to patient leaving prior to being seen by health care provider (principal)

== ENCOUNTER 2024-06-12 02:36 | Emergency (ER) | payer MEDICARE, MEDICAID ==
[~2024-06-12] VITALS: Ht 175.3 cm; Wt 99.8 kg
[2024-06-12 02:39] VITALS: BP 120/85; TEMP 97.9; O2SAT 97
== END 2024-06-12 03:59 | disposition left against medical advice (07) ==
LOC: M ED 02:36
DX: Z53.21 Procedure and treatment not carried out due to patient leaving prior to being seen by health care provider (principal)

== ENCOUNTER 2024-06-12 10:29 | Inpatient (IN) | payer MEDICARE, MEDICAID ==
[~2024-06-12] VITALS: Ht 175.3 cm; Wt 99.0 kg
[2024-06-12 11:28] LABS: HEMATOCRIT 39.2 % (42.0-52.0); HEMOGLOBIN 13.2 g/dl (13.5-17.5); MEAN CORPUSCULAR HGB CONC 33.7 g/dl (32.0-36.5); PLATELET COUNT, AUTOMATED 233 10^3/uL (150-450); RED BLOOD COUNT 4.26 10^6/uL (4.30-6.10); WHITE BLOOD COUNT 7.4 10^3/uL (4.0-10.0)
[2024-06-12 11:47] LABS: ETHYL ALCOHOL (ETHANOL) < 0.003 % (0.000-0.010)
[2024-06-12 11:49] LABS: ALBUMIN 3.2 G/DL (3.2-5.2); ALKALINE PHOSPHATASE 64 U/L (46-116); ALT/SGPT 131 U/L (7.0-40); AST/SGOT 161 U/L (<34); BILIRUBIN,DIRECT 0.1 MG/DL (<0.4); BILIRUBIN,TOTAL 0.2 MG/DL (0.3-1.2); BLOOD UREA NITROGEN 8 MG/DL (9-23); CALCIUM LEVEL 9.2 MG/DL (8.5-10.1); CARBON DIOXIDE LEVEL 26 MMOL/L (20-31); CHLORIDE LEVEL 100 MMOL/L (98-107); CREATININE FOR GFR 0.63 MG/DL (0.70-1.30); GLOMERULAR FILTRATION RATE > 60.0 (>60); GLUCOSE, FASTING 90 MG/DL (60-100); POTASSIUM SERUM 4.5 MMOL/L (3.5-5.1); SALICYLATE LEVEL < 3.0 MG/DL (<30); SODIUM LEVEL 130 MMOL/L (136-145); TOTAL PROTEIN 6.3 G/DL (5.7-8.2)
[2024-06-12 11:51] LABS: THYROID STIMULATING HORMONE 1.018 uIU/ML (0.55-4.78)
[2024-06-12 12:10] LABS: AMPHETAMINES LEVEL URINE NEGATIVE (NEGATIVE); BARBITURATES URINE NEGATIVE (NEGATIVE); BENZODIAZEPINES URINE NEGATIVE (NEGATIVE); CANNABINOIDS URINE NEGATIVE (NEGATIVE); COCAINE METABOLITE URINE NEGATIVE (NEGATIVE); METHADONE URINE NEGATIVE (NEGATIVE); OPIATES URINE NEGATIVE (NEGATIVE); PHENCYCLIDINE URINE NEGATIVE (NEGATIVE)
[2024-06-12] MEDS ORDERED: IBUPROFEN 400MG TAB PO PRN (13:40)
[2024-06-12] MEDS ORDERED: ACETAMINOPHEN TAB 650MG DOSE (2X325MG) PO PRN (13:40)
[2024-06-12] MEDS ORDERED: HOME MED LIST COMPLETE! XX SCH (14:40)
[2024-06-12 17:30] VITALS: BP 137/82; TEMP 99.7; O2SAT 91
[2024-06-12] MEDS: DIVALPROEX 500 MG TAB PO SCH (20:53)
[2024-06-12] MEDS: clonazePAM 1 MG TAB PO SCH (20:53)
[2024-06-12] MEDS: QUEtiapine FUMARATE 100 MG TAB PO SCH (20:53)
[2024-06-12] MEDS: LITHIUM CARBONATE 300 MG CAP PO SCH (20:53)
[2024-06-13 02:37] VITALS: BP 126/56; TEMP 101.7; O2SAT 95
[2024-06-13] MEDS: ACETAMINOPHEN 325 MG TAB PO ONE (03:07)
[2024-06-13 03:48] LABS: BASO % 0.3 % (0.0-1.0); EOS # 0.1 10^3/uL (0.0-0.5); EOS % 0.7 % (0.0-3.0); HEMATOCRIT 40.2 % (42.0-52.0); HEMOGLOBIN 13.3 g/dl (13.5-17.5); LYMPH # 1.1 10^3/uL (1.5-5.0); LYMPH % 15.5 % (24.0-44.0); MEAN CORPUSCULAR HGB CONC 33.1 g/dl (32.0-36.5); MEAN CORPUSCULAR VOLUME 93.7 fl (80.0-96.0); MONO % 13.8 % (2.0-8.0); NEUTROPHILS # 4.9 10^3/uL (1.5-8.5); NEUTROPHILS % 67.8 % (36.0-66.0); PLATELET COUNT, AUTOMATED 197 10^3/uL (150-450); RED BLOOD COUNT 4.29 10^6/uL (4.30-6.10); WHITE BLOOD COUNT 7.3 10^3/uL (4.0-10.0)
[2024-06-13] MEDS ORDERED: COMBIVENT RESPIMAT 100-20MCG INHALER 4GM INH SCH (04:00)
[2024-06-13 04:20] LABS: ALKALINE PHOSPHATASE 58 U/L (46-116); ALT/SGPT 128 U/L (7.0-40); AST/SGOT 153 U/L (<34); BILIRUBIN,TOTAL 0.2 MG/DL (0.3-1.2); BLOOD UREA NITROGEN 13 MG/DL (9-23); CALCIUM LEVEL 8.6 MG/DL (8.5-10.1); CARBON DIOXIDE LEVEL 24 MMOL/L (20-31); CHLORIDE LEVEL 102 MMOL/L (98-107); CREATININE FOR GFR 0.67 MG/DL (0.70-1.30); GLOMERULAR FILTRATION RATE > 60.0 (>60); GLUCOSE, FASTING 100 MG/DL (60-100); MAGNESIUM LEVEL 1.9 MG/DL (1.8-2.4); POTASSIUM SERUM 4.3 MMOL/L (3.5-5.1); SODIUM LEVEL 131 MMOL/L (136-145); TOTAL PROTEIN 6.1 G/DL (5.7-8.2)
[2024-06-13 04:47] LABS: VENOUS BASE EXCESS -3.6 (-2.0-2.0); VENOUS HCO3 20.2 MMOL/L (23.0-27.0); VENOUS O2 SATURATION 97.3 % (60.0-80.0); VENOUS PARTIAL PRESSURE CO2 33.2 mmHg (38.0-50.0); VENOUS PH 7.402 UNITS (7.330-7.430); VENOUS STANDARD HCO3 21.5 MMOL/L; VENOUS TOTAL CO2 21.2 MMOL/L (24.0-28.0)
[2024-06-13 05:11] LABS: PROCALCITONIN 0.18 ng/ml
[2024-06-13] MEDS ORDERED: COMBIVENT RESPIMAT 100-20MCG INHALER 4GM INH PRN (06:05)
[2024-06-13] MEDS ORDERED: ALBUTEROL 90 MCG/ACT 8GM HFA INHALER INH PRN (06:35)
[2024-06-13 07:10] VITALS: BP 122/59; TEMP 99.4; O2SAT 93
[2024-06-13 08:00] VITALS: TEMP 98.3
[2024-06-13 08:53] VITALS: BP 111/56; TEMP 99.7; O2SAT 99
[2024-06-13] MEDS: VITAMIN D 1,000 INTERNATIONAL UNITS TABLET PO SCH (09:28)
[2024-06-13] MEDS: METOPROLOL TART 25 MG TABLET PO SCH (09:28)
[2024-06-13] MEDS: ACETAMINOPHEN 500 MG TAB PO SCH (11:18)
[2024-06-13 16:59] VITALS: BP 134/93; TEMP 98.1; O2SAT 97
[2024-06-13] MEDS: CEPACOL LOZENGE PO PRN (18:38)
[2024-06-13] MEDS: traZODone 50 MG TAB PO PRN (21:05)
[2024-06-14 06:56] VITALS: BP 131/90; TEMP 98.7; O2SAT 99
[2024-06-14 09:33] VITALS: BP 124/79; TEMP 98.9; O2SAT 97
[2024-06-14] MEDS: NICOTINE 7 MG/24 HR TRANSDERMAL TD SCH (10:08)
[2024-06-14 16:43] VITALS: BP 102/64; TEMP 98; O2SAT 98
[2024-06-14] MEDS: diphenhydrAMINE 25MG CAP PO PRN (18:19)
[2024-06-15 09:00] VITALS: BP 135/84
[2024-06-15 15:16] VITALS: BP 130/99; TEMP 97.6; O2SAT 99
[2024-06-16 08:47] VITALS: BP 145/83
[2024-06-16 16:11] VITALS: BP 127/94; TEMP 97; O2SAT 97
[2024-06-17 15:32] VITALS: BP 148/90; TEMP 97.8; O2SAT 97
[2024-06-18 06:41] VITALS: BP 162/90; TEMP 97.4; O2SAT 98
[2024-06-18 08:49] VITALS: BP 160/84
[2024-06-18 14:47] VITALS: BP 147/92; TEMP 97.9; O2SAT 97
[2024-06-19 06:54] VITALS: BP 135/66; TEMP 97.5; O2SAT 100
[2024-06-19 08:38] VITALS: BP 122/88
[2024-06-19 15:36] VITALS: BP 118/72; TEMP 99.2; O2SAT 96
[2024-06-20 05:57] VITALS: BP 154/86; TEMP 97.4; O2SAT 99
[2024-06-20] MEDS: MAALOX 30 ML SUSP *UDC PO PRN (14:40)
[2024-06-20 15:35] VITALS: BP 144/80; TEMP 98.3; O2SAT 98
[2024-06-21 05:59] VITALS: BP 118/75; TEMP 97.6; O2SAT 99
[2024-06-21 08:55] VITALS: BP 102/64
[2024-06-21 15:51] VITALS: BP 132/84; TEMP 98.1; O2SAT 99
[2024-06-21] MEDS: QUEtiapine FUMARATE 200 MG TAB PO SCH (21:00)
[2024-06-22 15:51] VITALS: BP 130/84; TEMP 97; O2SAT 96
[2024-06-23 06:31] VITALS: BP 153/81; TEMP 97.3; O2SAT 100
[2024-06-23 08:05] VITALS: BP 154/81
[2024-06-23 17:15] VITALS: BP 116/80; TEMP 97.3
[2024-06-24 06:38] VITALS: BP 120/82; TEMP 97.1; O2SAT 98
[2024-06-24 06:59] LABS: VALPROIC ACID (DEPAKOTE) 81.9 UG/ML (50.0-100.0)
[2024-06-24 07:02] LABS: ALBUMIN 3.4 G/DL (3.2-5.2); ALKALINE PHOSPHATASE 58 U/L (46-116); ALT/SGPT 81 U/L (7.0-40); AST/SGOT 56 U/L (<34); BILIRUBIN,TOTAL 0.4 MG/DL (0.3-1.2); BLOOD UREA NITROGEN 8 MG/DL (9-23); CALCIUM LEVEL 9.6 MG/DL (8.5-10.1); CARBON DIOXIDE LEVEL 24 MMOL/L (20-31); CHLORIDE LEVEL 101 MMOL/L (98-107); CREATININE FOR GFR 0.41 MG/DL (0.70-1.30); GLOMERULAR FILTRATION RATE > 60.0 (>60); GLUCOSE, FASTING 80 MG/DL (60-100); POTASSIUM SERUM 4.4 MMOL/L (3.5-5.1); SODIUM LEVEL 133 MMOL/L (136-145); TOTAL PROTEIN 6.9 G/DL (5.7-8.2)
[2024-06-24 07:03] LABS: LITHIUM LEVEL 0.38 MMOL/L (1.0-1.20)
[2024-06-24 08:10] VITALS: BP 140/81
[2024-06-24 15:15] VITALS: BP 137/65; TEMP 97.8; O2SAT 97
[2024-06-25 07:01] VITALS: BP 114/60; TEMP 97.8; O2SAT 96
[2024-06-25 14:43] VITALS: BP 122/76; TEMP 98; O2SAT 98
[2024-06-25] MEDS: CYCLOBENZAPRINE 10MG TABLET PO PRN (20:14)
[2024-06-26 06:17] VITALS: BP 124/81; TEMP 97; O2SAT 100
[2024-06-26 15:18] VITALS: BP 119/69; TEMP 98.1; O2SAT 98
[2024-06-27 06:37] VITALS: BP 123/69; TEMP 97.5; O2SAT 97
[2024-06-27 15:17] VITALS: BP 136/63; TEMP 97; O2SAT 97
[2024-06-29 06:18] VITALS: BP 135/88; TEMP 97.1; O2SAT 100
[2024-06-29 15:15] VITALS: BP 149/67; TEMP 97.5; O2SAT 98
[2024-06-30] MEDS: MOM 30ML SUSPENSION UDC PO PRN (01:37)
[2024-06-30] MEDS: ACETAMINOPHEN 500 MG TAB PO PRN (03:43)
[2024-06-30 06:23] VITALS: BP 149/85; TEMP 97; O2SAT 98
[2024-06-30] MEDS ORDERED: QUET200T2 PO (07:46)
[2024-06-30] MEDS ORDERED: METO1TAB87 PO (07:46)
[2024-06-30 07:58] VITALS: BP 124/63
[2024-06-30 08:02] VITALS: BP 124/63
== END 2024-06-30 11:22 | disposition home or self-care (01) | DRG 885 ==
LOC: M ED 10:29 → M ED INP 13:36 → M PSY 15:49
PROVIDERS: ADMIT Psychiatry & Neurology Psychiatry; ATTEND Psychiatry & Neurology Psychiatry
DX: F25.0 Schizoaffective disorder, bipolar type (principal); U07.1 COVID-19; F17.210 Nicotine dependence, cigarettes, uncomplicated; K76.0 Fatty (change of) liver, not elsewhere classified; J44.9 Chronic obstructive pulmonary disease, unspecified; R00.0 Tachycardia, unspecified; E78.5 Hyperlipidemia, unspecified; E55.9 Vitamin D deficiency, unspecified; Z88.0 Allergy status to penicillin; Z88.6 Allergy status to analgesic agent; Z91.013 Allergy to seafood; Z79.899 Other long term (current) drug therapy

== ENCOUNTER 2024-11-25 02:27 | Emergency (ER) | payer MEDICARE, MEDICAID ==
[~2024-11-25] VITALS: Ht 167.6 cm; Wt 102.3 kg
[~2024-11-25 02:27] MED LIST changes: +METO1TAB87 PO
[2024-11-25 02:34] VITALS: BP 131/95; TEMP 98; O2SAT 96
== END 2024-11-25 02:47 | disposition left against medical advice (07) ==
LOC: M ED 02:27
DX: Z53.21 Procedure and treatment not carried out due to patient leaving prior to being seen by health care provider (principal)

== ENCOUNTER 2024-11-28 00:15 | Emergency (ER) | payer MEDICARE, MEDICAID ==
[~2024-11-28] VITALS: Ht 167.6 cm; Wt 105.6 kg
[2024-11-28 00:35] VITALS: BP 161/83; TEMP 98.4; O2SAT 98
== END 2024-11-28 00:56 | disposition left against medical advice (07) ==
LOC: M ED 00:15 → EDBD 00:15 → M ED 00:56
DX: Z53.21 Procedure and treatment not carried out due to patient leaving prior to being seen by health care provider (principal)

== ENCOUNTER 2024-11-29 00:03 | Emergency (ER) | payer MEDICARE, MEDICAID ==
[~2024-11-29] VITALS: Ht 167.6 cm; Wt 108.0 kg
[2024-11-29 00:09] VITALS: BP 143/82; TEMP 98.2; O2SAT 97
== END 2024-11-29 00:57 | disposition left against medical advice (07) ==
LOC: M ED 00:03
DX: Z53.21 Procedure and treatment not carried out due to patient leaving prior to being seen by health care provider (principal)

== ENCOUNTER 2024-12-01 22:26 | Emergency (ER) | payer MEDICARE, MEDICAID ==
[~2024-12-01] VITALS: Ht 167.6 cm; Wt 104.3 kg
[2024-12-01 22:29] VITALS: BP 168/90; TEMP 100.9; O2SAT 96
== END 2024-12-01 23:01 | disposition left against medical advice (07) ==
LOC: M ED 22:26
DX: Z53.21 Procedure and treatment not carried out due to patient leaving prior to being seen by health care provider (principal)

== ENCOUNTER 2024-12-02 00:48 | Emergency (ER) | payer MEDICARE, MEDICAID ==
[~2024-12-02] VITALS: Ht 175.3 cm; Wt 117.9 kg
[2024-12-02 01:04] VITALS: BP 142/86; TEMP 100.4; O2SAT 96
== END 2024-12-02 04:01 | disposition left against medical advice (07) ==
LOC: M ED 00:48
DX: Z53.21 Procedure and treatment not carried out due to patient leaving prior to being seen by health care provider (principal)

== ENCOUNTER 2024-12-02 20:48 | Emergency (ER) | payer MEDICARE, MEDICAID ==
[~2024-12-02] VITALS: Ht 172.7 cm; Wt 108.0 kg
[2024-12-03 00:46] VITALS: TEMP 98.3
[2024-12-03 01:52] VITALS: BP 136/60; O2SAT 92
== END 2024-12-03 04:29 | disposition left against medical advice (07) ==
LOC: M ED 20:48 → EDBD 20:48 → M ED 12-03 04:29
DX: R22.41 Localized swelling, mass and lump, right lower limb (principal); Z79.899 Other long term (current) drug therapy; Z88.0 Allergy status to penicillin; Z88.6 Allergy status to analgesic agent; Z91.013 Allergy to seafood

== ENCOUNTER 2024-12-13 01:28 | Emergency (ER) | payer MEDICARE, MEDICAID ==
[~2024-12-13] VITALS: Ht 167.6 cm; Wt 105.1 kg
[2024-12-13 01:32] VITALS: BP 134/86; TEMP 98.7; O2SAT 98
[2024-12-14] MEDS ORDERED: DOXY-441 PO (01:12)
[2024-12-14] MEDS ORDERED: BENZ1LOZ9 PO (01:12)
== END 2024-12-13 02:19 | disposition left against medical advice (07) ==
LOC: EDBD 01:28 → M ED 01:28
DX: Z53.21 Procedure and treatment not carried out due to patient leaving prior to being seen by health care provider (principal)

== ENCOUNTER 2024-12-13 20:58 | Emergency (ER) | payer MEDICARE, MEDICAID ==
[~2024-12-13] VITALS: Ht 180.3 cm; Wt 102.9 kg
[2024-12-13 21:02] VITALS: BP 105/73; TEMP 97.8; O2SAT 97
[2024-12-14] MEDS ORDERED: BENZ1LOZ9 PO (01:12)
[2024-12-14] MEDS ORDERED: DOXY-441 PO (01:12)
[2024-12-14] MEDS: DOXYCYCLINE HYCLATE 100MG TABLET PO ONE (01:20)
[2024-12-14] MEDS: CEPACOL LOZENGE MT ONE (01:20)
== END 2024-12-14 04:46 | disposition home or self-care (01) ==
LOC: EDBD 20:58 → M ED 20:58
DX: J02.9 Acute pharyngitis, unspecified (principal); L60.0 Ingrowing nail; I11.0 Hypertensive heart disease with heart failure; I50.9 Heart failure, unspecified; I25.2 Old myocardial infarction; J45.909 Unspecified asthma, uncomplicated; F25.9 Schizoaffective disorder, unspecified; F17.200 Nicotine dependence, unspecified, uncomplicated; K21.9 Gastro-esophageal reflux disease without esophagitis; Z88.0 Allergy status to penicillin; Z88.6 Allergy status to analgesic agent; Z79.899 Other long term (current) drug therapy

== ENCOUNTER 2024-12-17 21:53 | Emergency (ER) | payer MEDICARE, MEDICAID ==
[~2024-12-17 21:53] MED LIST changes: +BENZ1LOZ9 PO; +DOXY-441 PO
[2024-12-18 00:42] VITALS: BP 125/62; TEMP 98.2; O2SAT 93
[2024-12-18] MEDS: ACETAMINOPHEN 325 MG TAB PO ONE (00:46)
[2024-12-18] MEDS ORDERED: ACET-907 PO (00:57)
== END 2024-12-18 01:03 | disposition home or self-care (01) ==
LOC: M ED 21:53
DX: Z76.0 Encounter for issue of repeat prescription (principal); G89.29 Other chronic pain; M54.50 Low back pain, unspecified; Z88.0 Allergy status to penicillin; Z88.6 Allergy status to analgesic agent; I25.10 Atherosclerotic heart disease of native coronary artery without angina pectoris; I50.9 Heart failure, unspecified; I25.2 Old myocardial infarction; J44.9 Chronic obstructive pulmonary disease, unspecified; Z79.899 Other long term (current) drug therapy

== ENCOUNTER 2024-12-19 00:27 | Emergency (ER) | payer MEDICARE, MEDICAID ==
[~2024-12-19] VITALS: Ht 167.6 cm; Wt 105.7 kg
[~2024-12-19 00:27] MED LIST changes: +ACET-907 PO
[2024-12-19 02:43] VITALS: BP 137/91; TEMP 98.7; O2SAT 94
[2024-12-20] MEDS ORDERED: CLEO300C2 PO (07:39)
== END 2024-12-19 04:35 | disposition left against medical advice (07) ==
LOC: M ED 00:27
DX: Z53.21 Procedure and treatment not carried out due to patient leaving prior to being seen by health care provider (principal)

== ENCOUNTER 2024-12-20 04:13 | Emergency (ER) | payer MEDICARE, MEDICAID ==
[~2024-12-20] VITALS: Ht 180.3 cm; Wt 104.1 kg
[2024-12-20] MEDS ORDERED: CLEO300C2 PO (07:39)
[2024-12-20] MEDS: CLINDAMYCIN 150MG CAPSULE PO ONE (07:45)
[2024-12-20 07:53] VITALS: BP 171/90; TEMP 98.4; O2SAT 98
== END 2024-12-20 07:57 | disposition home or self-care (01) ==
LOC: M ED 04:13
DX: J02.9 Acute pharyngitis, unspecified (principal); Z88.0 Allergy status to penicillin; Z88.6 Allergy status to analgesic agent; F17.200 Nicotine dependence, unspecified, uncomplicated; J44.9 Chronic obstructive pulmonary disease, unspecified; F25.9 Schizoaffective disorder, unspecified; Z79.899 Other long term (current) drug therapy

== ENCOUNTER 2024-12-21 03:22 | Emergency (ER) | payer MEDICARE, MEDICAID ==
[~2024-12-21] VITALS: Ht 167.6 cm; Wt 102.3 kg
[~2024-12-21 03:22] MED LIST changes: +CLEO300C2 PO
[2024-12-21 03:26] VITALS: BP 138/68; TEMP 97.8; O2SAT 99
== END 2024-12-21 03:45 | disposition left against medical advice (07) ==
LOC: M ED 03:22
DX: Z53.21 Procedure and treatment not carried out due to patient leaving prior to being seen by health care provider (principal)

== ENCOUNTER → 2024-12-24 | Outpatient (CLI) | payer MEDICARE, MEDICAID ==
[2024-12-24 13:23] LABS: HEMATOCRIT 42.3 % (42.0-52.0); HEMOGLOBIN 13.9 g/dl (13.5-17.5); MEAN CORPUSCULAR HEMOGLOBIN 30.8 pg (27.0-33.0); MEAN CORPUSCULAR HGB CONC 32.9 g/dl (32.0-36.5); MEAN CORPUSCULAR VOLUME 93.8 fl (80.0-96.0); PLATELET COUNT, AUTOMATED 280 10^3/uL (150-450); RED BLOOD COUNT 4.51 10^6/uL (4.30-6.10); WHITE BLOOD COUNT 9.8 10^3/uL (4.0-10.0)
[2024-12-24 13:27] LABS: APPEARANCE, URINE CLEAR (CLEAR); BACTERIA, URINE AUTO NEGATIVE (NEGATIVE); BILIRUBIN, URINE AUTO NEGATIVE (NEGATIVE); BLOOD, URINE BLOOD NEGATIVE (NEGATIVE); COLOR, URINE YELLOW (YELLOW); GLUCOSE, URINE (UA) AUTO NEGATIVE (NEGATIVE); KETONE, URINE AUTO NEGATIVE (NEGATIVE); LEUKOCYTE ESTERASE, URINE AUTO NEGATIVE (NEGATIVE); NITRITE, URINE AUTO NEGATIVE (NEGATIVE); PROTEIN, URINE AUTO NEGATIVE (NEGATIVE); RBC, URINE AUTO 0 /HPF (0-3); SPECIFIC GRAVITY URINE AUTO 1.011 (1.002-1.035); SQUAMOUS EPITHELIAL CELL UR AU 0 /HPF (0-6); UROBILINOGEN, URINE AUTO 0.2 mg/dL (0.0-2.0); WBC, URINE AUTO 0 /HPF (0-3)
[2024-12-24 13:47] LABS: VALPROIC ACID (DEPAKOTE) 70.3 UG/ML (50.0-100.0)
[2024-12-24 13:49] LABS: ALBUMIN 3.3 G/DL (3.2-5.2); ALKALINE PHOSPHATASE 74 U/L (40-129); ALT/SGPT 118 U/L (7.0-40); AST/SGOT 77 U/L (<34); BILIRUBIN,TOTAL 0.4 MG/DL (0.3-1.2); BLOOD UREA NITROGEN 10 MG/DL (9-23); CALCIUM LEVEL 9.1 MG/DL (8.5-10.1); CARBON DIOXIDE LEVEL 28 MMOL/L (20-31); CHLORIDE LEVEL 101 MMOL/L (98-107); CREATININE FOR GFR 0.44 MG/DL (0.70-1.30); GLOMERULAR FILTRATION RATE > 90.0 (>60); GLUCOSE, FASTING 97 MG/DL (60-100); LITHIUM LEVEL 0.43 MMOL/L (1.0-1.20); POTASSIUM SERUM 4.6 MMOL/L (3.5-5.1); SODIUM LEVEL 133 MMOL/L (136-145); TOTAL PROTEIN 6.8 G/DL (5.7-8.2)
== END ==
LOC: M LAB 12:49
PROVIDERS: ATTEND Student in an Organized Health Care Education/Training Program
DX: F25.0 Schizoaffective disorder, bipolar type (principal)

== ENCOUNTER 2024-12-25 22:26 | Emergency (ER) | payer MEDICARE, MEDICAID ==
[~2024-12-25] VITALS: Ht 172.7 cm; Wt 103.5 kg
[2024-12-25 22:31] VITALS: TEMP 98.2
[2024-12-26 00:42] VITALS: BP 169/88; O2SAT 98
== END 2024-12-26 00:44 | disposition home or self-care (01) ==
LOC: M ED 22:26
DX: S93.401A Sprain of unspecified ligament of right ankle, initial encounter (principal); W01.0XXA Fall on same level from slipping, tripping and stumbling without subsequent striking against object, initial encounter; Y92.007 Garden or yard of unspecified non-institutional (private) residence as the place of occurrence of the external cause; Y93.9 Activity, unspecified; Y99.9 Unspecified external cause status; Z79.899 Other long term (current) drug therapy; Z88.0 Allergy status to penicillin; Z88.6 Allergy status to analgesic agent; Z91.013 Allergy to seafood

== ENCOUNTER 2024-12-26 23:54 | Emergency (ER) | payer MEDICARE, MEDICAID ==
[~2024-12-26] VITALS: Ht 170.2 cm; Wt 101.3 kg
[2024-12-27 04:42] VITALS: BP 157/84; TEMP 98; O2SAT 97
== END 2024-12-27 05:48 | disposition left against medical advice (07) ==
LOC: M ED 23:54
DX: Z53.21 Procedure and treatment not carried out due to patient leaving prior to being seen by health care provider (principal)

== ENCOUNTER 2024-12-31 23:58 | Emergency (ER) | payer MEDICARE, MEDICAID | END 2025-01-01 00:14 | disposition left against medical advice (07) | LOC: M ED 23:58 | DX: Z53.21 Procedure and treatment not carried out due to patient leaving prior to being seen by health care provider (principal) ==

== ENCOUNTER 2025-01-06 05:48 | Emergency (ER) | payer MEDICARE, MEDICAID ==
[~2025-01-06] VITALS: Ht 170.2 cm; Wt 99.3 kg
[2025-01-06 06:05] VITALS: BP 163/91; TEMP 97.3; O2SAT 98
== END 2025-01-06 06:44 | disposition left against medical advice (07) ==
LOC: EDBD 05:48 → M ED 05:48
DX: Z53.21 Procedure and treatment not carried out due to patient leaving prior to being seen by health care provider (principal)

== ENCOUNTER 2025-01-07 01:18 | Emergency (ER) | payer MEDICARE, MEDICAID ==
[~2025-01-07] VITALS: Ht 170.2 cm; Wt 93.2 kg
[2025-01-07 01:23] VITALS: BP 139/84; TEMP 97.9; O2SAT 98
== END 2025-01-07 02:40 | disposition left against medical advice (07) ==
LOC: M ED 01:18
DX: Z53.21 Procedure and treatment not carried out due to patient leaving prior to being seen by health care provider (principal)

== ENCOUNTER 2025-01-08 22:47 | Emergency (ER) | payer MEDICARE, MEDICAID ==
[~2025-01-08] VITALS: Ht 170.2 cm; Wt 98.4 kg
[~2025-01-08 22:47] MED LIST changes: +LIDO1ADH93 TOP; -LIDO5DIS41 TOP
[2025-01-08 22:54] VITALS: BP 110/60; TEMP 98.8; O2SAT 97
[2025-01-08 23:39] LABS: KETONE, URINE AUTO RFX NEGATIVE (NEGATIVE); LEUKOCYTE ESTERASE UR AUTO RFX NEGATIVE (NEGATIVE); NITRITE, URINE AUTO RFX NEGATIVE (NEGATIVE); RBC, URINE AUTO RFX 0 /HPF (0-3); SQUAM EPITHELIAL CELL UR AURFX 0 /HPF (0-6); WBC, URINE AUTO RFX 0 /HPF (0-3)
[2025-01-09 00:10] LABS: LIPASE 31 U/L (12-53)
[2025-01-09 00:13] LABS: ALBUMIN 3.3 G/DL (3.2-5.2); ALKALINE PHOSPHATASE 71 U/L (40-129); ALT/SGPT 114 U/L (7.0-40); AST/SGOT 137 U/L (<34); BILIRUBIN,DIRECT 0.1 MG/DL (<0.4); BILIRUBIN,TOTAL 0.3 MG/DL (0.3-1.2); BLOOD UREA NITROGEN 10 MG/DL (9-23); CARBON DIOXIDE LEVEL 27 MMOL/L (20-31); CHLORIDE LEVEL 103 MMOL/L (98-107); CREATININE FOR GFR 0.48 MG/DL (0.70-1.30); GLOMERULAR FILTRATION RATE > 90.0 (>60); GLUCOSE, FASTING 94 MG/DL (60-100); POTASSIUM SERUM 4.1 MMOL/L (3.5-5.1); SODIUM LEVEL 136 MMOL/L (136-145); TOTAL PROTEIN 6.6 G/DL (5.7-8.2)
[2025-01-09 00:51] LABS: BASO % 0.3 % (0.0-1.0); EOS # 0.3 10^3/uL (0.0-0.5); HEMATOCRIT 41.9 % (42.0-52.0); LYMPH # 2.6 10^3/uL (1.5-5.0); LYMPH % 26.7 % (24.0-44.0); MEAN CORPUSCULAR HEMOGLOBIN 30.8 pg (27.0-33.0); MEAN CORPUSCULAR HGB CONC 33.4 g/dl (32.0-36.5); MEAN CORPUSCULAR VOLUME 92.1 fl (80.0-96.0); MONO # 0.8 10^3/uL (0.0-0.8); MONO % 7.8 % (2.0-8.0); NEUTROPHILS % 61.6 % (36.0-66.0); PLATELET COUNT, AUTOMATED 289 10^3/uL (150-450); RED BLOOD COUNT 4.55 10^6/uL (4.30-6.10); WHITE BLOOD COUNT 9.7 10^3/uL (4.0-10.0)
[2025-01-26] MEDS ORDERED: SERO200T PO (15:56)
[2025-01-26] MEDS ORDERED: HYDR-3490 PO (15:57)
== END 2025-01-08 23:43 | disposition left against medical advice (07) ==
LOC: M ED 22:47
DX: Z53.21 Procedure and treatment not carried out due to patient leaving prior to being seen by health care provider (principal)

== ENCOUNTER 2025-01-09 04:04 | Emergency (ER) | payer MEDICARE, MEDICAID ==
[~2025-01-09] VITALS: Ht 170.2 cm; Wt 98.6 kg
[2025-01-09 04:13] VITALS: BP 165/90; TEMP 98.3; O2SAT 97
[2025-01-26] MEDS ORDERED: SERO200T PO (15:56)
[2025-01-26] MEDS ORDERED: HYDR-3490 PO (15:57)
== END 2025-01-09 04:55 | disposition left against medical advice (07) ==
LOC: M ED 04:04
DX: Z53.21 Procedure and treatment not carried out due to patient leaving prior to being seen by health care provider (principal)

== ENCOUNTER 2025-01-09 19:23 | Emergency (ER) | payer MEDICARE, MEDICAID ==
[~2025-01-09] VITALS: Ht 170.2 cm; Wt 100.6 kg
[~2025-01-09 19:23] MED LIST changes: -LIDO1ADH93 TOP; +LIDO5DIS41 TOP
[2025-01-09 19:25] VITALS: BP 139/83; TEMP 97.1; O2SAT 98
== END 2025-01-09 22:00 | disposition left against medical advice (07) ==
LOC: M ED 19:23
DX: Z53.21 Procedure and treatment not carried out due to patient leaving prior to being seen by health care provider (principal)

== ENCOUNTER 2025-01-19 04:06 | Emergency (ER) | payer MEDICARE, MEDICAID ==
[~2025-01-19] VITALS: Ht 170.2 cm; Wt 98.4 kg
[~2025-01-19 04:06] MED LIST changes: +LIDO1ADH93 TOP; -LIDO5DIS41 TOP
[2025-01-19 04:33] VITALS: BP 135/89; TEMP 98.5; O2SAT 99
[2025-01-26] MEDS ORDERED: SERO200T PO (15:56)
[2025-01-26] MEDS ORDERED: HYDR-3490 PO (15:57)
== END 2025-01-19 05:00 | disposition left against medical advice (07) ==
LOC: M ED 04:06
DX: Z53.21 Procedure and treatment not carried out due to patient leaving prior to being seen by health care provider (principal)

== ENCOUNTER 2025-01-21 11:04 | Emergency (ER) | payer MEDICARE, MEDICAID ==
[~2025-01-21] VITALS: Ht 170.2 cm; Wt 97.2 kg
[~2025-01-21 11:04] MED LIST changes: +DEPA250T PO; -DEPA250T2 PO; -DEPA250T32 PO; +DIVA-41 PO; +DIVA-65 PO; -DIVA500T94 PO
[2025-01-21 13:04] VITALS: BP 132/84; TEMP 98.3; O2SAT 96
[2025-01-26] MEDS ORDERED: SERO200T PO (15:56)
[2025-01-26] MEDS ORDERED: HYDR-3490 PO (15:57)
== END 2025-01-21 13:06 | disposition home or self-care (01) ==
LOC: EDBD → MERGE 11:04 → M ED 11:04
DX: S60.221A Contusion of right hand, initial encounter (principal); X58.XXXA Exposure to other specified factors, initial encounter; Y92.009 Unspecified place in unspecified non-institutional (private) residence as the place of occurrence of the external cause; Y93.89 Activity, other specified; Y99.9 Unspecified external cause status; I10 Essential (primary) hypertension; F39 Unspecified mood [affective] disorder; Z88.0 Allergy status to penicillin; Z91.013 Allergy to seafood

== ENCOUNTER 2025-01-22 03:18 | Emergency (ER) | payer MEDICAID, OTHER ==
[~2025-01-22] VITALS: Ht 170.2 cm; Wt 97.2 kg
[~2025-01-22 03:18] MED LIST changes: -DEPA250T PO; +DEPA250T2 PO; +DEPA250T32 PO; -DIVA-41 PO; -DIVA-65 PO; +DIVA500T94 PO
[2025-01-22 03:26] VITALS: BP 137/80; TEMP 98.6; O2SAT 98
[2025-01-26] MEDS ORDERED: SERO200T PO (15:56)
[2025-01-26] MEDS ORDERED: HYDR-3490 PO (15:57)
== END 2025-01-22 05:21 | disposition left against medical advice (07) ==
LOC: EDBD → M ED 03:18 → MERGE 03:18 → M ED 05:21
DX: Z53.21 Procedure and treatment not carried out due to patient leaving prior to being seen by health care provider (principal)

== ENCOUNTER 2025-01-24 20:34 | Emergency (ER) | payer MEDICARE, MEDICAID ==
[~2025-01-24] VITALS: Ht 170.2 cm; Wt 99.6 kg
[2025-01-24 20:36] VITALS: BP 135/64; TEMP 96.8; O2SAT 97
[2025-01-26] MEDS ORDERED: SERO200T PO (15:56)
[2025-01-26] MEDS ORDERED: HYDR-3490 PO (15:57)
== END 2025-01-24 22:32 | disposition left against medical advice (07) ==
LOC: EDBD → M ED 20:34 → MERGE 20:34 → M ED 22:32
DX: Z53.21 Procedure and treatment not carried out due to patient leaving prior to being seen by health care provider (principal)

== ENCOUNTER 2025-01-24 22:45 | Emergency (ER) | payer MEDICARE, MEDICAID ==
[~2025-01-24] VITALS: Ht 170.2 cm; Wt 97.8 kg
[2025-01-25 00:23] VITALS: BP 138/70; TEMP 97.6; O2SAT 98
[2025-01-26] MEDS ORDERED: SERO200T PO (15:56)
[2025-01-26] MEDS ORDERED: HYDR-3490 PO (15:57)
== END 2025-01-25 00:36 | disposition home or self-care (01) ==
LOC: MERGE 22:45 → M ED 22:45 → EDBD 22:45 → M ED 01-25 00:36
DX: S69.91XA Unspecified injury of right wrist, hand and finger(s), initial encounter (principal); X58.XXXA Exposure to other specified factors, initial encounter; Y92.9 Unspecified place or not applicable; Y93.89 Activity, other specified; Y99.9 Unspecified external cause status; F17.200 Nicotine dependence, unspecified, uncomplicated; Z79.899 Other long term (current) drug therapy; Z88.0 Allergy status to penicillin; Z88.6 Allergy status to analgesic agent; Z91.013 Allergy to seafood

== ENCOUNTER 2025-03-12 22:37 | Emergency (ER) | payer MEDICARE, MEDICAID ==
[~2025-03-12] VITALS: Ht 170.2 cm; Wt 97.5 kg
[~2025-03-12 22:37] MED LIST changes: +DEPA250T PO; -DEPA250T2 PO; -DEPA250T32 PO; +DIVA-41 PO; +DIVA-65 PO; -DIVA500T94 PO; +HYDR-3490 PO; +SERO200T PO
[2025-03-12 23:09] VITALS: BP 139/82; TEMP 97.9; O2SAT 98
== END 2025-03-13 00:44 | disposition left against medical advice (07) ==
LOC: M ED 22:37
DX: Z53.21 Procedure and treatment not carried out due to patient leaving prior to being seen by health care provider (principal)

== ENCOUNTER 2025-03-14 22:08 | Emergency (ER) | payer MEDICARE, MEDICAID ==
[~2025-03-14] VITALS: Ht 170.2 cm; Wt 88.6 kg
[2025-03-14 22:23] VITALS: BP 134/75; TEMP 98.8; O2SAT 98
[2025-03-15] MEDS ORDERED: ACETAMINOPHEN 500 MG TAB PO ONE (00:30)
== END 2025-03-15 00:48 | disposition left against medical advice (07) ==
LOC: M ED 22:08
DX: S40.022A Contusion of left upper arm, initial encounter (principal); Z53.9 Procedure and treatment not carried out, unspecified reason; X58.XXXA Exposure to other specified factors, initial encounter; Y92.9 Unspecified place or not applicable; Y93.9 Activity, unspecified; Y99.9 Unspecified external cause status; I11.0 Hypertensive heart disease with heart failure; I25.2 Old myocardial infarction; E78.00 Pure hypercholesterolemia, unspecified; J44.9 Chronic obstructive pulmonary disease, unspecified; M54.9 Dorsalgia, unspecified; K21.9 Gastro-esophageal reflux disease without esophagitis; H40.9 Unspecified glaucoma; F17.200 Nicotine dependence, unspecified, uncomplicated; F12.10 Cannabis abuse, uncomplicated; Z79.899 Other long term (current) drug therapy; Z88.0 Allergy status to penicillin; Z88.6 Allergy status to analgesic agent; Z91.013 Allergy to seafood

== ENCOUNTER 2025-03-23 00:43 | Emergency (ER) | payer MEDICARE, MEDICAID ==
[~2025-03-23] VITALS: Ht 172.7 cm; Wt 96.3 kg
[2025-03-23 00:45] VITALS: BP 131/83; TEMP 97.5; O2SAT 99
== END 2025-03-23 04:11 | disposition left against medical advice (07) ==
LOC: M ED 00:43
DX: Z53.21 Procedure and treatment not carried out due to patient leaving prior to being seen by health care provider (principal)

== ENCOUNTER 2025-03-30 02:28 | Emergency (ER) | payer MEDICARE, MEDICAID ==
[~2025-03-30] VITALS: Ht 175.3 cm; Wt 95.4 kg
[2025-03-30 02:31] VITALS: TEMP 97.5
[2025-03-30 05:18] VITALS: BP 130/90; O2SAT 98
== END 2025-03-30 05:57 | disposition left against medical advice (07) ==
LOC: M ED 02:28
DX: Z53.21 Procedure and treatment not carried out due to patient leaving prior to being seen by health care provider (principal)

== ENCOUNTER 2025-04-02 23:27 | Emergency (ER) | payer MEDICARE, MEDICAID ==
[~2025-04-02] VITALS: Ht 170.2 cm; Wt 95.0 kg
[2025-04-02 23:34] VITALS: BP 149/76; TEMP 98.3; O2SAT 97
== END 2025-04-03 00:45 | disposition left against medical advice (07) ==
LOC: M ED 23:27
DX: Z53.21 Procedure and treatment not carried out due to patient leaving prior to being seen by health care provider (principal)

== ENCOUNTER → 2025-04-14 | Outpatient (CLI) | payer MEDICARE, MEDICAID | LOC: M RAD 09:40 | PROVIDERS: ATTEND Pediatrics | DX: K76.0 Fatty (change of) liver, not elsewhere classified (principal) ==

== ENCOUNTER → 2025-04-27 | Outpatient (CLI) | payer MEDICARE, MEDICAID ==
[2025-04-27 14:05] LABS: C REACTIVE PROTEIN QUANTITATIV 0.60 MG/DL (<1.0); RHEUMATOID FACTOR QUANT < 3.5 IU/ML (<14)
[2025-04-28 14:41] LABS: ANTI SCLERODERMA ANTIBODIES <1.0 NEG AI (<1.0 NEG); RNP ANTIBODY <1.0 NEG AI (<1.0 NEG); SSA SJOGRENS A <1.0 NEG AI (<1.0 NEG); SSB SJOGRENS B <1.0 NEG AI (<1.0 NEG)
[2025-04-29 16:02] LABS: ANA PATTERN 2 Nuclear, Homogeneous; ANA TITER 2 1:40 titer (NEGATIVE)
[2025-04-30 10:07] LABS: ANTI DS-DNA AB Negative (Negative)
== END ==
LOC: M LAB 11:09
PROVIDERS: ATTEND Internal Medicine Pulmonary Disease
DX: R91.8 Other nonspecific abnormal finding of lung field (principal)

== ENCOUNTER → 2025-08-17 | Outpatient (CLI) | payer MEDICARE, MEDICAID ==
[~2025-08-17] MED LIST changes: -IBUP1TAB6 PO; +NICO2LOZ29 MT; +ONDA-282 PO; +SFHIBU600 PO; +VALB40CA PO
== END ==
LOC: M PLAIMG 12:59
PROVIDERS: ATTEND Internal Medicine Pulmonary Disease
DX: R91.8 Other nonspecific abnormal finding of lung field (principal)

== ENCOUNTER 2025-08-23 10:19 | Day surgery (SDC) | payer MEDICARE, MEDICAID ==
[~2025-08-23] VITALS: Ht 170.2 cm; Wt 103.8 kg
[~2025-08-23 10:19] MED LIST changes: +GLYCOPYRROLATE INJ 0.2 MG/ML 2 ML VIAL As Ordered ONE; +LIDOCAINE 2% 100 MG/5 ML SDV (FOR ANES.) As Ordered ONE
[2025-08-23 12:00] VITALS: TEMP 98.4
[2025-08-23 12:21] VITALS: BP 154/98; O2SAT 95
== END 2025-08-23 12:28 | disposition home or self-care (01) ==
LOC: M OPP 10:19
PROVIDERS: ATTEND Surgery
DX: Z12.11 Encounter for screening for malignant neoplasm of colon (principal); R19.5 Other fecal abnormalities; K63.5 Polyp of colon; Z88.0 Allergy status to penicillin; Z91.013 Allergy to seafood; Z79.899 Other long term (current) drug therapy; J44.9 Chronic obstructive pulmonary disease, unspecified; F17.210 Nicotine dependence, cigarettes, uncomplicated
CPT/HCPCS: 45385; 88305; J1596